=== PATIENT | female | born 1945 | race Caucasian/White ===

== ENCOUNTER 2019-09-02 10:10 | Outpatient (CLI) | payer MEDICARE, SELFPAY ==
--- NOTE | ~2019-09-02 | XR_ITS ---
XR shoulder LT min 2V DATE: 09/02/2019 10:33 INDICATION: Straining injury 3 months ago. Left shoulder pain. TECHNIQUE: 4 views COMPARISON: None FINDINGS: No fracture or dislocation, periosteal reaction or bone destruction. Normal alignment at th e acromioclavicular and glenohumeral joints. There is mild osteoarthritic spurring at the left glenoh umeral joint. Degenerative spurring of the thoracic spine. IMPRESSION: Mild left glenohumeral osteoarthritis Reviewed, dictated and finalized at location A.
== END 2019-09-02 10:11 | disposition home or self-care (01) ==
LOC: ANHIMG 10:13
PROVIDERS: PCP Emergency Medicine; Visit Provider Emergency Medicine
DX: M19.012 Primary osteoarthritis, left shoulder (principal)
CPT/HCPCS: 73030

== ENCOUNTER 2019-12-29 14:47 | Outpatient (CLI) | payer MEDICARE, SELFPAY ==
--- NOTE | ~2019-12-29 | DEXA_ITS ---
Bone Density Report Name: Nataliia Arteaga Age: 74 Sex: Female Ethnicity: White Date of : 1945 Indication: postmenopausal; height loss; hysterectomy; Referring Provider: HAILE VELOZ Study: Bone densitometry was performed. Exam Date: December 29, 2019 Accession number: [id number] Bone Density: Region BMD T-score Z-score Classification AP Spine (L3, L4) 1.202 0.9 3.4 Normal Femoral Neck (Left) 0.793 -0.5 1.5 Normal Total Hip (Left) 0.919 -0.2 1.5 Normal Total Hip Bilateral Avg 0.948 0.1 1.8 Normal Femoral Neck (Right) 0.797 -0.5 1.5 Normal Total Hip (Right) 0.976 0.3 2.0 Normal World Health Organization criteria for BMD impression classify patients as: Normal (T-score at or above -1.0), Osteopenia (T-score between -1.0 and -2.5), or Osteoporosis (T-score at or below -2.5). 10-year Fracture Risk: FRAX not reported because: All T-scores for Spine Total, Hip Total, Femoral Neck at or above -1.0 Previous Exams: Region Exam Age BMD T-score BMD Change BMD Change Date g/cm2 vs Baseline vs Previous AP Spine(L3, L4) 12/29/2019 74 1.202 0.9 -0.005(-0.4%)# -0.027(-2.2%)* 04/09/2017 71 1.229 1.2 0.022(1.8%)# -0.035(-2.7%)* 02/02/2015 69 1.264 1.5 0.057(4.7%)# 0.057(4.7%)# 05/28/2011 66 1.207 1.0 Total Hip(Left) 12/29/2019 74 0.919 -0.2 -0.034(-3.6%)# -0.031(-3.3%)* 04/09/2017 71 0.950 0.1 -0.003(-0.3%)# -0.010(-1.0%) 02/02/2015 69 0.960 0.1 0.007(0.7%)# 0.007(0.7%)# 05/28/2011 66 0.953 0.1 Total Hip(Right) 12/29/2019 74 0.976 0.3 -0.057(-5.5%)# -0.050(-4.8%)* 04/09/2017 71 1.025 0.7 -0.007(-0.7%)# 0.008(0.8%) 02/02/2015 69 1.017 0.6 -0.016(-1.5%)# -0.016(-1.5%)# 05/28/2011 66 1.033 0.7 *Denotes significance at 95% confidence level, LSC for AP Spine = 0.022 g/cm2, LSC for Total Hip = 0.027 g/cm2 Clinical Information Provided by Patient: Has used the following medications: Vitamin D, Calcium Has the following medical conditions: Hysterectomy Patient maximum height was 65 Menopause Age: 43 Drinks caffeinated beverages Onset of menses at age 11 Number of children 3 Impression: The patient has normal bone mass. The BMD for the AP Spine(L3, L4) decreased, changing by -2.2% since the last DXA exam. The BMD for the Total Hip(Left) decreased, changing by -3.3% since the last DXA exam. The BMD for the Total Hip(Right) decreased, changing by -4.8% since the last
--- NOTE | ~2019-12-29 | MM_ITS ---
EXAMINATION: MM screening [place] BI w flores HISTORY: Screening mammogram TECHNIQUE: Craniocaudal and mediolateral oblique 3-D tomosynthesis images were obtained and synthetic 2-D images were generated. CAD analysis was submitted and interpreted. COMPARISON: 11/19/2018, 07/23/2017, 04/29/2016 bilateral digital screening mammogram examinations BREAST PARENCHYMAL COMPOSITION: The breasts are almost entirely fatty. FINDINGS: There is no evidence of suspicious mass, calcification, or architectural distortion to sugg est malignancy in either breast. There has been no suspicious interval change. IMPRESSION: 1. No mammographic evidence of malignancy. 2. Recommend routine screening mammography in one year. BI-RADS Category 1: Negative Reviewed, dictated and finalized at location A.
== END 2019-12-29 14:48 | disposition home or self-care (01) ==
LOC: ANHIMG 14:48
PROVIDERS: PCP Emergency Medicine; Visit Provider Emergency Medicine
DX: Z12.31 Encounter for screening mammogram for malignant neoplasm of breast (principal); Z78.0 Asymptomatic menopausal state
CPT/HCPCS: 77063; 77067; 77080

== ENCOUNTER 2020-05-25 13:06 | Outpatient (CLI) | payer MEDICARE, SELFPAY ==
--- NOTE | ~2020-05-25 | CT_ITS ---
EXAMINATION: CT lung screening DATE: 05/25/2020 13:50 INDICATION: Personal history of tobacco dependence, prior smoker with 67.5 pack year history TECHNIQUE: Computed tomography (CT) of the chest was performed without intravenous contrast. The dose -length product (DLP) was 76.97 mGy-cm. 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 COMPARISON: 07/21/2018 FINDINGS: There are stable bilateral pulmonary nodules, the largest of which measures 4 mm in the rig ht lung apex. No new pulmonary nodule is identified. There is mild dependent atelectasis. No pleural effusion or pneumothorax is identified. Again noted is multinodular goiter which extends into the sup erior mediastinum on the left. Calcified atherosclerosis is noted. No pathologically enlarged thoraci c lymph nodes are identified. The heart size is normal. There is severe thoracic spondylosis. IMPRESSION: 1. Lung-RADS category 2: Benign appearance or behavior. Continue annual screening with noncontrast lo w-dose chest CT in 12 months. Reviewed, dictated and finalized at location A. 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 Lung-RADS category 2: Benign appearance or behavior. Continue annual screeni ng with noncontrast low-dose chest CT in 12 months.
--- NOTE | ~2020-05-25 | US_ITS ---
EXAMINATION: US thyroid DATE: 05/25/2020 13:48 INDICATION: Nontoxic goiter TECHNIQUE: Multiple ultrasound images of the thyroid were obtained. COMPARISON: None. FINDINGS: The right thyroid lobe measures 5.1 x 3.4 x 1.8 cm. The left thyroid lobe measures 7.7 x 3.8 x 2.8 c m. Wider than tall slightly hypoechoic solid right thyroid nodule with smooth margins and without ec hogenic foci. (TI-RADS 4, moderately suspicious , FNA if >=1.5 cm, annual followup is >1 cm) which me asures 3.5 cm in maximal dimensions. There are 3 similar-appearing TI-RADS 4 nodules in the left thyr oid lobe which measure 4.0 cm, 3.6 cm and 2.1 cm in maximal diameters. IMPRESSION: 1. Multiple TI RADS 4 thyroid nodules meeting criteria for ultrasound guided biopsy. Would recommend biopsy of the 2 largest nodules which would include the 4 cm left thyroid nodule and either the 3.6 a nd meter left 3.5 cm right thyroid nodule depending on which measures larger on real-time imaging at the time of biopsy. Reviewed, dictated and finalized at location A. 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 Multiple TI RADS 4 thyroid nodules meeting criteria for ultrasound guided bi opsy. Would recommend biopsy of the 2 largest nodules which would include the 4 cm left thyroid nodule and either the 3.6 and meter left 3.5 cm right thyroid nodule depending on which measures larger on real-time imaging at the time of b iopsy.
== END 2020-05-25 13:07 | disposition home or self-care (01) ==
PROVIDERS: PCP Emergency Medicine; Visit Provider Emergency Medicine
DX: Z12.2 Encounter for screening for malignant neoplasm of respiratory organs (principal); Z87.891 Personal history of nicotine dependence; E04.2 Nontoxic multinodular goiter
CPT/HCPCS: 71271; 76536

== ENCOUNTER 2020-07-13 13:10 | Outpatient (CLI) | payer MEDICARE, SELFPAY ==
--- NOTE | ~2020-07-13 | US_ITS ---
EXAMINATION: US FNA w image guidance, US FNA additional DATE: 07/13/2020 15:52 (accession [id number]), 07/13/2020 15:53 (accession [id number]) INDICATION: Nontoxic goiter TECHNIQUE: A time-out was performed to verify the patient's name, date of , and procedure to be performed . The procedure and its benefits and risks were discussed with the patient. Risks specifically discus sed included bleeding and infection. The patient understood the risks and agreed to proceed. Attentio n was first turned to the left thyroid nodule. The left neck was prepped and draped in the usual ster ile manner. 3 mL 1% lidocaine was used for local anesthesia. 6 passes were made with a 25G needle i nto the lesion. Appropriate needle location was documented with continuous sonographic guidance. Att ention was then turned to the right thyroid nodule. The right neck was prepped and draped in usual st erile manner. An additional 3 mm 1% lidocaine was used for local anesthesia. 6 passes were made with a 25G needle into the lesion. Appropriate needle location was documented with continuous sonographic guidance. Sterile bandages were applied. There were no immediate complications. FINDINGS: Grayscale ultrasound images demonstrate biopsy needles advanced first into the largest >3.7 cm solid left thyroid nodule. Subsequently biopsy needles are seen advanced into the next largest 3.2 cm right thyroid nodule. IMPRESSION: 1. Successful ultrasound-guided fine needle aspiration of the 2 largest thyroid nodules which measur e >3.7 cm on the left and 3.2 cm on the right. Reviewed, dictated and finalized at location A. IMPRESSION: 1. Successful ultrasound-guided fine needle aspiration of the 2 largest thyroi d nodules which measure >3.7 cm on the left and 3.2 cm on the right.
== END 2020-07-13 13:11 | disposition home or self-care (01) ==
PROVIDERS: PCP Emergency Medicine; Visit Provider Emergency Medicine
DX: E04.2 Nontoxic multinodular goiter (principal)
CPT/HCPCS: 10005; 10006; 88173; 88305

== ENCOUNTER → 2020-10-23 03:27 | Outpatient (CLI) | payer MEDICARE, SELFPAY ==
[2020-10-23 16:50] LABS: SARS-CoV-2 RNA PCR Negative
== END ==
PROVIDERS: PCP Emergency Medicine; Visit Provider Internal Medicine Gastroenterology
DX: Z01.812 Encounter for preprocedural laboratory examination (principal); Z20.822 Contact with and (suspected) exposure to COVID-19
CPT/HCPCS: C9803; U0003; U0005

== ENCOUNTER 2020-10-26 01:30 | Day surgery (SDC) | payer MEDICARE, SELFPAY ==
[2020-10-10 13:01] VITALS: BMI 30.2
--- NOTE | 2020-10-25 13:27 | WPDANESEPPF ---
Anes - Initial Pre Proc Eval Procedure: Operation Date: 10/26/20 11:00 Proposed Procedures p Screening Colonoscopy - Giorgio Martinez MD Date/Time: 10/25/20 13:27 Surgeon: Giorgio Martinez MD Pre Op Diagnosis: neoplasm screening Patient Data Age: 75 Gender: F Height: 1.57 m Weight: 75 kg Allergies Allergy/AdvReac Type Severity Reaction Status Date / Time No Known Allergies Allergy Verified 10/26/20 09:48 Home Medications Medication Instructions Recorded Confirmed Type cholecalciferol (vitamin D3) 25 25 mcg PO DAILY 04/08/19 10/26/20 History mcg (1,000 unit) capsule omega 0-lld-clp-fish oil 1,000 mg 2 cap PO DAILY 04/08/19 10/26/20 History (120 mg-180 mg) capsule gabapentin 100 mg PO TID 10/10/20 10/26/20 History simvastatin 20 mg PO DAILY 10/10/20 10/26/20 History turmeric 400 mg PO DAILY 10/10/20 10/26/20 History Patient hx anesthesia problems: none Family hx anesthesia problems: none PMFSH Past Medical History Medical History (Updated 10/26/20 @ 10:12 by Radames Cabrera DO) Back pain at L4-L5 level Multinodular goiter Nicotine dependence, unspecified, uncomplicated Numbness and tingling of both legs Other specified soft tissue disorders Paresthesia of skin Personal history of nicotine dependence Primary generalized (osteo)arthritis PVD (peripheral vascular disease) Vitamin D deficiency disease Family History Family History Father Family history of kidney disease Acute myocardial infarction Mother Family history of diabetes mellitus in first degree relative Sibling Acute myocardial infarction Social History Social History Smoking packs per day: 1.5 Smoking cigarettes per day: 30.0 Years smoked: 45 Smoking pack-years: 67.50 Smoking status: Former smoker Tobacco type: cigarettes Second hand tobacco smoke exposure: Yes Alcohol intake: former Living arrangements: alone Spiritual care concerns: No Anes - Eval Final PreProcedure Day of Procedure 10/25/20 13:27 Patient weight: obese Heart: regular rate and rhythm Lungs: clear to auscultation and normal air movement Airway: Mallampati scale class II Neurological: alert and oriented Last oral intake: >/= 8 hours ASA classification: III Emergent: no Anesthetic plan: proceed Anesthesia type and monitoring: general GIVS and standard monitoring Informed Consent: The patient's anesthetic plan and its attendant risks and benefits were discussed with the patient/family/POA. Questions were solicited and answers provided to the satisfaction of the patient/family/POA.
[2020-10-26 09:50] VITALS: BP 137/86; PULSE 97; RESP 18; TEMP 35.5; O2SAT 100
[2020-10-26] MEDS: LACTATED RINGERS 1,000 ML 150 ML IV CONT (09:52)
--- NOTE | 2020-10-26 10:06 | WPDGICN ---
Assessment and Plan Assessment and plan (1) Encounter for screening colonoscopy: Code(s): Z12.11 - Encounter for screening for malignant neoplasm of colon Status: Acute Assessment and Plan: Patient presents for screening colonoscopy. She appears to be at average risk for colon polyps. GI Consult Note Consult date/time: 10/26/20 10:06 HPI: Nataliia Arteaga is a 75 year old female Presents for neoplasia screening. Patient reports that her bowel habits are normal. She denies abdominal pain. She has had no bleeding. Her last colonoscopy was 13 years ago. Family history is noncontributory. Review of Systems Review of Systems: All systems reviewed & are unremarkable except as noted in HPI and below PMFSH Past Medical History Medical History Back pain at L4-L5 level Chest pain at rest Multinodular goiter Nicotine dependence, unspecified, uncomplicated Numbness and tingling of both legs Other specified soft tissue disorders Paresthesia of skin Personal history of nicotine dependence Primary generalized (osteo)arthritis PVD (peripheral vascular disease) Vitamin D deficiency disease Family History Family History Father Family history of kidney disease Acute myocardial infarction Mother Family history of diabetes mellitus in first degree relative Sibling Acute myocardial infarction Social History Social History Smoking packs per day: 1.5 Smoking cigarettes per day: 30.0 Years smoked: 45 Smoking pack-years: 67.50 Smoking status: Former smoker Tobacco type: cigarettes Second hand tobacco smoke exposure: Yes Alcohol intake: former Living arrangements: alone Spiritual care concerns: No Meds Home Medications and Allergies Home Medications Medication Instructions Recorded Confirmed Type cholecalciferol (vitamin D3) 25 25 mcg PO DAILY 04/08/19 10/26/20 History mcg (1,000 unit) capsule omega 0-cnq-ihf-fish oil 1,000 mg 2 cap PO DAILY 04/08/19 10/26/20 History (120 mg-180 mg) capsule gabapentin 100 mg PO TID 10/10/20 10/26/20 History simvastatin 20 mg PO DAILY 10/10/20 10/26/20 History turmeric 400 mg PO DAILY 10/10/20 10/26/20 History Allergies Allergy/AdvReac Type Severity Reaction Status Date / Time No Known Allergies Allergy Verified 10/26/20 09:48 Vital Signs Vital Signs - 24 hr 10/26/20 09:50 Temperature 95.9 F L Pulse Rate 97 Respiratory Rate 18 Blood Pressure 137/86 Pulse Oximetry 100 Exam Narrative: Exam Narrative: Physical exam reveals patient to be alert. Vital signs stable. HEENT exam is unremarkable. Patient is anicteric. Lungs are clear to auscultation and percussion. Heart is without murmur or extra sounds. Abdominal exam bowel sounds are present soft nontender with no organomegaly. Digital external rectal exam is normal.
[2020-10-26 11:15] VITALS: BP 87/58; PULSE 74; RESP 28; O2SAT 96
[2020-10-26 11:21] VITALS: BP 87/58; PULSE 74; RESP 28; O2SAT 96
[2020-10-26 11:25] VITALS: BP 101/59; PULSE 78; RESP 19; O2SAT 100
[2020-10-26 11:35] VITALS: BP 147/90; PULSE 72; RESP 20; O2SAT 100
[2020-10-26 12:07] LABS: Hematocrit 46.2 % (37.0-47.0); Hemoglobin 15.4 g/dL (12.0-15.0); Mean Corpuscular HGB Conc 33.3 g/dl (32-36); Mean Platelet Volume 10.8 fl (7.4-10.4); Platelet Count Result 181 k/mm3 (150-375); Red Blood Count 4.97 M/mm3 (4.2-5.4); Red Cell Distribution Width 12.6 % (11.5-14.5); White Blood Count 4.7 K/mm3 (4.5-10.0)
[2020-10-26 12:21] LABS: Alanine Aminotransferase 21 U/L (4-35); Albumin Level 4.9 g/dL (3.5-5.1); Alkaline Phosphatase 98 U/L (38-126); Anion Gap 10 mmol/L (8-16); Aspartate Amino Transferase 29 U/L (14-36); Bilirubin,Total 0.7 mg/dL (0.2-1.3); Blood Urea Nitrogen 13 mg/dL (7-17); Calcium 10.1 mg/dL (8.4-10.2); Carbon Dioxide 25 mmol/L (22-30); Chloride 103 mmol/L (98-107); Estimated CRCL calculation 37 ml/min; Estimated Glomerular Filt Rate 49; Glucose 121 mg/dL (65-105); Potassium 4.5 mmol/L (3.4-5.0); Sodium 138 mmol/L (137-145)
[2020-10-26 12:46] LABS: Carcinoembryonic Antigen 9.3 ng/mL (0.0-3.0)
== END 2020-10-26 12:09 | disposition home or self-care (01) ==
PROVIDERS: PCP Emergency Medicine; Visit Provider Internal Medicine Gastroenterology
PROC: 0DJD8ZZ Inspection of Lower Intestinal Tract, Via Natural or Artificial Opening Endoscopic (ICD-10-PCS; CPT 45378; principal; 2020-10-26 11:00)
DX: Z12.11 Encounter for screening for malignant neoplasm of colon (principal); C18.3 Malignant neoplasm of hepatic flexure; D12.2 Benign neoplasm of ascending colon; E04.2 Nontoxic multinodular goiter; E55.9 Vitamin D deficiency, unspecified; I73.9 Peripheral vascular disease, unspecified; M15.0 Primary generalized (osteo)arthritis; R20.2 Paresthesia of skin; Z87.891 Personal history of nicotine dependence
CPT/HCPCS: 45385; 45380; 45381; 36415; 80053; 82378; 85027; 88305; C9803; J2704; J7120; U0003; U0005

== ENCOUNTER 2020-11-03 10:03 | Outpatient (CLI) | payer MEDICARE, SELFPAY ==
--- NOTE | 2020-11-03 11:14 | ECG_ITS ---
Measurements Intervals [place] Rate: 73 P: 14 MD: 165 QRS: 27 QRSD: 69 T: 45 QT: 371 QTc: 410 Interpretive Statements SINUS RHYTHM LOW QRS VOLTAGE IN PRECORDIAL LEADS BASELINE ARTIFACT- I, II, III, AVR, AVL, AVF BORDERLINE ECG Electronically Signed On 11-03-2020 12:25:52 CDT by Abiodun Miller D.O.
== END 2020-11-03 10:04 | disposition home or self-care (01) ==
LOC: ANHSURGERY 10:03
PROVIDERS: PCP Emergency Medicine; Visit Provider Surgery
DX: Z01.818 Encounter for other preprocedural examination (principal); C18.9 Malignant neoplasm of colon, unspecified; E78.5 Hyperlipidemia, unspecified
CPT/HCPCS: 36415; 86850; 86900; 86901; 93005

== ENCOUNTER → 2020-11-04 00:21 | Outpatient (CLI) | payer MEDICARE, SELFPAY ==
[2020-11-04 16:43] LABS: SARS-CoV-2 RNA PCR Negative
== END ==
PROVIDERS: PCP Emergency Medicine; Visit Provider Surgery
DX: Z01.812 Encounter for preprocedural laboratory examination (principal); Z20.822 Contact with and (suspected) exposure to COVID-19
CPT/HCPCS: C9803; U0003; U0005

== ENCOUNTER 2020-11-08 16:29 | Inpatient (IN) | payer MEDICARE, SELFPAY ==
[2020-11-03 10:27] VITALS: BP 137/72; PULSE 79; RESP 18; TEMP 36.2; O2SAT 98; BMI 30.2
[2020-11-08] VITALS (11 sets, daily range): BP systolic 97–145; BP diastolic 49–70; PULSE 66–90; RESP 10–20; TEMP 35.6–36.6; O2SAT 94–100
[2020-11-08] MEDS: ACETAMINOPHEN 500 MG TABLET 1000 MG PO (10:31)
[2020-11-08] MEDS: LACTATED RINGERS 1,000 ML 30 ML IV CONT ×3 (11:00→14:49)
[2020-11-08] MEDS: KETOROLAC 15 MG/ML VIAL (*BKC) IV PUSH (11:11)
--- NOTE | 2020-11-08 11:38 | WPDANESEPPF ---
Anes - Initial Pre Proc Eval Procedure: Operation Date: 11/08/20 12:00 Proposed Procedures p Hand Assisted Laparoscopic Right Colectomy - Yvrose Shelley MD Date/Time: 11/08/20 11:38 Surgeon: Yvrose Shelley MD Pre Op Diagnosis: right colon cancer Patient Data Age: 75 Gender: F Height: 1.57 m Weight: 72.5 kg Last Vital Signs Temp 36.6 C 11/08/20 10:20 Pulse 86 11/08/20 10:20 Resp 20 11/08/20 10:20 BP 145/68 H 11/08/20 10:20 Pulse Ox 100 11/08/20 10:20 Allergies Allergy/AdvReac Type Severity Reaction Status Date / Time No Known Allergies Allergy Verified 11/08/20 10:23 Home Medications Medication Instructions Recorded Confirmed Type cholecalciferol (vitamin D3) 25 25 mcg PO DAILY 04/08/19 11/08/20 History mcg (1,000 unit) capsule omega 6-woh-dmr-fish oil 1,000 mg 2 cap PO DAILY 04/08/19 11/08/20 History (120 mg-180 mg) capsule gabapentin 100 mg PO TID 10/10/20 11/08/20 History simvastatin 20 mg PO DAILY 10/10/20 11/08/20 History turmeric 400 mg PO DAILY 10/10/20 11/08/20 History erythromycin 500 mg tablet 1 g PO .COMPLEX #6 tablet 11/01/20 11/08/20 Rx neomycin 500 mg tablet 1 g PO .COMPLEX #6 tablet 11/01/20 11/08/20 Rx Patient hx anesthesia problems: none Family hx anesthesia problems: none PMFSH Past Medical History Medical History Back pain at L4-L5 level Multinodular goiter Nicotine dependence, unspecified, uncomplicated Numbness and tingling of both legs Other specified soft tissue disorders Paresthesia of skin Personal history of nicotine dependence Primary generalized (osteo)arthritis PVD (peripheral vascular disease) Vitamin D deficiency disease Surgical History Surgical History H/O cataract extraction H/O section x 3 History of hysterectomy Family History Family History Father Family history of kidney disease Acute myocardial infarction Mother Family history of diabetes mellitus in first degree relative Sibling Acute myocardial infarction Social History Social History Smoking packs per day: 1 Smoking cigarettes per day: 20.0 Years smoked: 50 Smoking pack-years: 50.00 Smoking status: Former smoker Tobacco type: cigarettes Second hand tobacco smoke exposure: Yes Smoking end date: 07/13/18 Alcohol intake: former 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 Substance use: never Living arrangements: with family Additional living arrangements comments: Spiritual care concerns: No Anes - Eval Final PreProcedure Day of Procedure 11/08/20 11:38 Patient weight: overweight Heart: regular rate and rhythm Lungs: clear to auscultation Airway: Mallampati scale class II and special considerations poor dentition Neurological: alert and oriented Last oral intake: >/= 8 hours Emergent: no Anesthetic plan: proceed Anesthesia type and monitoring: general ETT and standard monitoring Informed Consent: The patient's anesthetic plan and its attendant risks and benefits were discussed with the patient/family/POA. Questions were solicited and answers provided to the satisfaction of the patient/family/POA.
--- NOTE | 2020-11-08 11:48 | WPDHPUPDATE1 ---
History and Physical Update Update Date/Time: 11/08/20 11:48 History and Physical has been reviewed, including an updated exam of the patient. There are NO changes in the patient's condition. Risks, benefits, and alternatives have been discussed and questions answered. Patient agrees to proceed with procedure.
[2020-11-08] MEDS: ceFAZolin 2 GM/D5W 50 ML 2 GM/50 ML BAG IVPB (12:02)
[2020-11-08] MEDS: BUPIVACAINE/EPINEPHRINE 0.5% 10 ML VIAL 30 ML INFILTRATE (12:02)
[2020-11-08] MEDS: metroNIDAZOLE 500 MG/ISO 100ML 500 MG/100 ML BAG 100 MG IVPB (12:13)
--- NOTE | 2020-11-08 14:53 | W.PM.PROC2 ---
Procedure Note - Detailed Date of Procedure 11/08/20 Pre-op Diagnosis right colon cancer proximal transverse colon, lysis of adhesion of approximately 30 minutes Post-op Diagnosis same Procedure Performed hand assisted laparoscopic right hemicolectomy c mobilization of hepatic flexure, lysis of adhesion of approximately 30 minutes Surgeon Yvrose Shelley MD Anesthesia general Indications 75 y/o F presenting c biopsy confirmed colon cancer near hepatic flexure Findings palpable mass and tatoo in proximal transverse colon Description of Procedure The patient was taken to the operating room and placed in the supine position. After adequate induction of general anesthesia, the patient was prepped and draped normal sterile fashion. A time-out was then done to verify the patient's identity as well as the procedure being performed. I began by making a hand port incision around the umbilicus. This was carried down into the peritoneal cavity and there was noted adhesions to the lower anterior abdominal wall. These adhesions were taken down under visualization with the bovie cautery. Once the abdominal wall was cleared, the hand port was then placed. I then insufflated the abdomen through the hand port. I then placed the camera through the hand port and under direct visualization, I placed 2 5 mm ports in right lower and right mid abdomen. Once this was done, I examined the right abdomen. It was noted that the patient had adhesions of the cecum and distal ileum to the pelvis. These adhesions were taken down both bluntly and with the ligasure under direct visualization. This adhesiolysis took approximately 30 minutes. Once the right colon was mobilized, I began my medial approach. I did this by 1st recognizing and transecting the right colic vessels. This was taken down near the base of the mesentery with the LigaSure. Once this was done, I carried this plane towards the hepatic flexure until I encountered the duodenum which was mobilized posteriorly. I then began taking down the lateral attachments of the terminal ileum and right colon including taking down the white line of [place] and the hepatic flexure. Once this was done my medial and lateral dissection planes met. I was able to easily manipulate the right colon. The tattoed region and palpable mass was noted past the hepatic flexure in the proximal transverse colon. Further dissection was done to free up the transverse colon, including taking down the omentum. At this point, I extracorporealyzed the right colon and terminal ileum. I then transected the terminal ileum approximately 10 cm proximal to the ileo colic junction with a 75 OBDULIO stapler. I then localized the tumor in the proximal transverse colon. I measured 10 cm distal to this and transected the transverse colon at this point. Of note, I was able to palpate the middle colic vessels and the transection was done proximal to the vessels. I then performed a [id number] functional end-to-end anastomosis between the ileum and proximal transverse colon with a 55 OBDULIO stapler followed by a TL 60 stapler. The anastomosis was noted to be tension-free and widely patent. I closed the messenteric defect with a 2.0 silk suture. I then copiously irrigated the abdomen, no other pathology was noted. I then closed the hand port incision with a 0 PDS suture at the fascial level. The skin was closed with 4 O Monocryl subcuticular sutures including the 5 mm ports sites. Dermabond was then placed on all wounds. The patient tolerated the procedure well. She was extubated in the operating room postoperatively and will be transferred to the recovery room in stable condition. Estimated Blood Loss 25 Drains No Packing No Pathology yes Complications No immediate complications Condition stable Disposition PACU
[2020-11-08] MEDS: ONDANSETRON INJ 4 MG/2 ML VIAL IV PUSH (15:10)
[2020-11-08] MEDS: fentaNYL CITRATE INJ (*CRX) 100 MCG/2 ML VIAL 25 MCG IV PUSH ×6 (15:10→16:20)
--- NOTE | 2020-11-08 17:59 | ADMGEN ---
This patient, Nataliia Arteaga, was admitted to Medical Room 241-01. Patient/family oriented to hospital policies and general routines including ID bracelet, bed and alarms, visiting hours, pain management, procedures, bathroom and other care routines, personal items, smoking policy, room service/diet, and visiting hours. Information on how to activate the Rapid Response Team has been discussed. Patient/Family are encouraged to report perceived risks to care and to ask questions if they do not understand what they are told or what they should do.
[2020-11-08] MEDS: LACTATED RINGERS 1,000 ML 100 ML IV CONT (18:09)
[2020-11-08] MEDS: GABAPENTIN 100 MG CAPSULE PO (18:09)
[2020-11-08] MEDS: HYDROcodone/acetaminophen (*CRX) 5-325 MG TABLET 1 TAB PO (20:37)
[2020-11-09 02:14] VITALS: BP 111/49; PULSE 87; RESP 18; TEMP 36.3; O2SAT 97
[2020-11-09] MEDS: LACTATED RINGERS 1,000 ML 100 ML IV CONT (04:09)
[2020-11-09 05:45] LABS: Basophils Percent Auto 0.2 % (0.2-1.2); Hematocrit 37.1 % (37.0-47.0); Hemoglobin 12.2 g/dL (12.0-15.0); Immature Granulocyte Absolute 0.03 K/mm3 (0.00-0.031); Immature Granulocyte Percent A 0.3 % (0-0.5); Lymphocytes Absolute Auto 0.45 K/mm3 (0.9-3.2); Lymphocytes Percent Auto 4.2 % (18.3-44.2); Mean Corpuscular HGB Conc 32.9 g/dl (32-36); Mean Corpuscular Hemoglobin 30.7 pg (26-34); Mean Corpuscular Volume 93.2 fl (80-100); Mean Platelet Volume 11.5 fl (7.4-10.4); Monocytes Absolute Auto 0.6 K/mm3 (0.1-0.6); Monocytes Percent Auto 5.6 % (2.6-8.5); Neutrophils Absolute Auto 9.7 K/mm3 (1.3-6.7); Neutrophils Percent Auto 89.7 % (45.5-73.1); Platelet Count Result 159 k/mm3 (150-375); Red Blood Count 3.98 M/mm3 (4.2-5.4); Red Cell Distribution Width 12.4 % (11.5-14.5); White Blood Count 10.8 K/mm3 (4.5-10.0)
[2020-11-09 05:53] LABS: Anion Gap 8 mmol/L (8-16); Blood Urea Nitrogen 12 mg/dL (7-17); Calcium 8.5 mg/dL (8.4-10.2); Carbon Dioxide 22 mmol/L (22-30); Chloride 103 mmol/L (98-107); Estimated CRCL calculation 57 ml/min; Estimated Glomerular Filt Rate > 60; Glucose 146 mg/dL (65-110); Sodium 133 mmol/L (137-145)
[2020-11-09 06:14] VITALS: BP 108/47; PULSE 82; RESP 18; TEMP 36.7; O2SAT 97
[2020-11-09] MEDS: PANTOPRAZOLE 40 MG TABLET PO (08:44)
[2020-11-09] MEDS: GABAPENTIN 100 MG CAPSULE PO ×3 (08:44→16:56)
[2020-11-09] MEDS: CHOLECALCIFEROL 1,000 UNITS TABLET 1000 UNITS PO (08:44)
[2020-11-09] MEDS: SIMVASTATIN 20 MG TABLET PO (08:44)
[2020-11-09] MEDS: ENOXAPARIN 40 MG/0.4 ML SYRINGE SUB-Q (08:44)
[2020-11-09] MEDS: OMEGA 3 POLYUNSAT FATTY ACIDS 1 GM CAP 2 GM PO (08:44)
[2020-11-09 10:14] VITALS: BP 96/50; PULSE 78; RESP 16; TEMP 37; O2SAT 96
--- NOTE | 2020-11-09 11:25 | PM.PNGS ---
Progress Note: A&P Assessment and Plan (1) Colon cancer: Qualifiers: Colon location: hepatic flexure Qualified Code(s): C18.3 - Malignant neoplasm of hepatic flexure Code(s): C18.9 - Malignant neoplasm of colon, unspecified Status: Acute Assessment and Plan: POD#1 and doing well. Awaiting return of bowel function. Pain well-controlled. Advance to full liquids. Stop IVF. D/C Choi catheter. Encouraged increasing activity, walking the halls, IS use. Pathology pending. Additional Plan I have discussed the plan of care with Dr. Shelley. Subjective Subjective Date/Time Seen: 11/09/20 11:25 Post Op day: 1 Patient reports: tolerating liquids well, no flatus, no bowel movement and afebrile Interval history: Patient seen this morning and doing well. She has been up in the chair most of the morning. Pain is well controlled. No nausea, vomiting, or bloating. No flatus. No other complaints. Review of Systems Review of Systems: All systems reviewed & are unremarkable except as noted in HPI and below Constitutional: Constitutional: Reports as per HPI, Reports no additional constitutional complaints, Denies chills and Denies fever(s) Cardiovascular: Cardiovascular: Reports no additional cardiovascular complaints, Denies chest pain and Denies leg edema Respiratory: Respiratory: Reports no additional respiratory complaints, Denies cough and Denies dyspnea Gastrointestinal: Gastrointestinal: Reports as per HPI and Reports no additional gastrointestinal complaints Neurologic: Reports system reviewed and no additional complaints, except as documented, Denies Abnormal speech present and Denies focal weakness Exam Const: General: comfortable, no acute distress, alert and awake Orientation/consciousness: patient oriented x3 Resp: Effort & Inspection: normal respiratory effort Auscultation: clear to auscultation bilaterally Cardio: Rate: regular rate Rhythm: regular rhythm GI: Inspection: non-distended and incision (Abdominal incisions clean and dry, glue intact.) GI Palp: Yes Soft to palpation and Yes Tenderness to palpation present (GI) (incisional) Auscultation: normal bowel sounds Urinary Catheter: Urinary Catheter: patent and draining and urine clear Skin: General skin exam: normal color Neuro: General: moves all extremities and no focal motor deficits Extrem: General: no clubbing, cyanosis or edema and no calf tenderness Psych: Mental Status: mental status grossly normal Insight: Good insight present (Psych) Judgement: Good judgement present (Psych) Objective Data Vital Signs Vital Signs: Vital Signs - 24 hr 11/08/20 14:39 11/08/20 14:55 11/08/20 15:10 Temperature 96.7 F L Pulse Rate 70 71 71 Respiratory Rate 11 L 10 L 10 L Blood Pressure 124/64 124/67 97/51 L Pulse Oximetry 100 100 94 11/08/20 15:25 11/08/20 15:42 11/08/20 16:45 Temperature 96.0 F L Pulse Rate 73 68 74 Respiratory Rate 10 L 10 L 14 Blood Pressure 99/49 L 114/59 L 115/60 Pulse Oximetry 98 100 100 11/08/20 17:00 11/08/20 17:14 11/08/20 18:14 Temperature 96.0 F L 96.2 F L Pulse Rate 66 90 Respiratory Rate 14 14 Blood Pressure 122/65 134/70 Pulse Oximetry 100 100 100 11/08/20 20:20 11/09/20 02:14 11/09/20 06:14 Temperature 97.7 F 97.3 F L 98.1 F Pulse Rate 82 87 82 Respiratory Rate 16 18 18 Blood Pressure 140/64 111/49 L 108/47 L Pulse Oximetry 98 97 97 11/09/20 10:14 Temperature 98.6 F Pulse Rate 78 Respiratory Rate 16 Blood Pressure 96/50 L Pulse Oximetry 96 Intake/Output Intake/Output: Intake & Output 11/06/20 11/07/20 11/08/20 11/09/20 23:59 23:59 23:59 23:59 Intake Total 1150 1450 Output Total 200 600 Balance 950 850 Meds/Results Medications: Active Medications Generic Name Dose Route Start Last Admin Trade Name Freq PRN Reason Stop Dose Admin Hydrocodone Bitart/Acetaminophen 1 tab 11/08/20 16:29 11/08/20 20:37 Hydrocodone/Acetaminophen (*Crx
--- NOTE | 2020-11-09 12:17 | WPDANESPN ---
Anes - Prog Note Post-Op Date/Time: 11/09/20 12:17 Cardiovascular status: normal Respiratory status: normal Airway patency: baseline Mental status: baseline Post-Op hydration status: normal Vital Signs: Last Vital Signs Temp 37.0 C 11/09/20 10:14 Pulse 78 11/09/20 10:14 Resp 16 11/09/20 10:14 BP 96/50 L 11/09/20 10:14 Pulse Ox 96 11/09/20 10:14 Pain Score (VAS): 3 I/O: Intake & Output 11/08/20 11/09/20 11/09/20 23:59 07:59 15:59 Intake Total 350 1450 Output Total 100 600 300 Balance 250 850 -300 Laboratory Tests 11/09/20 05:05 11/09/20 05:05 11/09/20 11/09/20 05:05 05:05 WBC 10.8 H RBC 3.98 L Hgb 12.2 D Hct 37.1 MCV 93.2 MCH 30.7 MCHC 32.9 RDW 12.4 Plt Count 159 MPV 11.5 H Immature Gran % (Auto) 0.3 Neut % (Auto) 89.7 H Lymph % (Auto) 4.2 L [place] % (Auto) 5.6 Eos % (Auto) 0.0 Baso % (Auto) 0.2 Lymph # (Auto) 0.45 L [place] # (Auto) 0.6 Eos # (Auto) 0.0 Baso # (Auto) 0.0 Abs Immat Gran (auto) 0.03 Absolute Neuts (auto) 9.7 H Absolute Nucleated RBC 0.0 Nucleated RBC % 0.0 Sodium 133 L Potassium 4.0 Chloride 103 Carbon Dioxide 22 Anion Gap 8 BUN 12 Creatinine 0.70 Estim Creat Clear Calc 57 Estimated GFR > 60 Glucose 146 H Calcium 8.5 Post-procedural complaints: none Patient Feedback: Patient satisfied with anesthetic care.
[2020-11-09 14:14] VITALS: BP 110/50; PULSE 79; RESP 18; TEMP 36.8; O2SAT 97
[2020-11-09] MEDS: HYDROcodone/acetaminophen (*CRX) 5-325 MG TABLET 1 TAB PO (17:00)
[2020-11-09] MEDS: ALVIMOPAN 12 MG CAPSULE PO (21:06)
[2020-11-09 22:00] VITALS: BP 133/51; PULSE 80; RESP 18; TEMP 36.7; O2SAT 96
[2020-11-10 02:00] VITALS: BP 137/69; PULSE 101; RESP 18; TEMP 36.1; O2SAT 96
[2020-11-10] MEDS: ONDANSETRON INJ 4 MG/2 ML VIAL IV PUSH ×5 (04:12→21:19)
[2020-11-10 05:46] LABS: Hematocrit 39.5 % (37.0-47.0); Hemoglobin 13.1 g/dL (12.0-15.0); Mean Corpuscular HGB Conc 33.2 g/dl (32-36); Mean Corpuscular Hemoglobin 30.8 pg (26-34); Mean Corpuscular Volume 92.9 fl (80-100); Mean Platelet Volume 11.2 fl (7.4-10.4); Platelet Count Result 161 k/mm3 (150-375); Red Blood Count 4.25 M/mm3 (4.2-5.4); Red Cell Distribution Width 12.6 % (11.5-14.5); White Blood Count 10.4 K/mm3 (4.5-10.0)
[2020-11-10 06:00] VITALS: BP 123/59; PULSE 79; RESP 18; TEMP 36.3; O2SAT 96
[2020-11-10 06:01] LABS: Anion Gap 6 mmol/L (8-16); Blood Urea Nitrogen 14 mg/dL (7-17); Calcium 8.9 mg/dL (8.4-10.2); Carbon Dioxide 28 mmol/L (22-30); Chloride 99 mmol/L (98-107); Estimated CRCL calculation 57 ml/min; Estimated Glomerular Filt Rate > 60; Glucose 131 mg/dL (65-110); Potassium 3.9 mmol/L (3.4-5.0); Sodium 133 mmol/L (137-145)
[2020-11-10] MEDS: GABAPENTIN 100 MG CAPSULE PO ×3 (08:25→17:35)
[2020-11-10] MEDS: CHOLECALCIFEROL 1,000 UNITS TABLET 1000 UNITS PO (08:25)
[2020-11-10] MEDS: PANTOPRAZOLE 40 MG TABLET PO (08:25)
[2020-11-10] MEDS: ENOXAPARIN 40 MG/0.4 ML SYRINGE SUB-Q (08:25)
[2020-11-10] MEDS: ALVIMOPAN 12 MG CAPSULE PO ×2 (08:26→20:14)
[2020-11-10] MEDS: SIMVASTATIN 20 MG TABLET PO (08:26)
--- NOTE | 2020-11-10 08:51 | PM.PNGS ---
Progress Note: A&P Assessment and Plan (1) Colon cancer: Qualifiers: Colon location: hepatic flexure Qualified Code(s): C18.3 - Malignant neoplasm of hepatic flexure Code(s): C18.9 - Malignant neoplasm of colon, unspecified Status: Acute Assessment and Plan: doing well, soft diet, OOB/IS, await path, hopefully home this Subjective Subjective Date/Time Seen: 11/10/20 08:51 feels ok, some nausea, belching overnight, multiple loose stools Review of Systems Review of Systems: All systems reviewed & are unremarkable except as noted in HPI and below Exam Const: General: cooperative and no acute distress Nutritional Appearance: average body habitus Orientation/consciousness: patient oriented x3 Resp: Effort & Inspection: normal respiratory effort Auscultation: clear to auscultation bilaterally Cardio: Rate: regular rate Rhythm: regular rhythm GI: Inspection: normal to inspection, distended and incision GI Palp: Yes Soft to palpation and Yes Tenderness to palpation present (GI) Other: soft, sl dist, [place] TTP, incisions C/D/I Objective Data Vital Signs Vital Signs: Vital Signs - 24 hr 11/09/20 10:14 11/09/20 14:14 11/09/20 22:00 Temperature 37.0 C 36.8 C 36.7 C Pulse Rate 78 79 80 Respiratory Rate 16 18 18 Blood Pressure 96/50 L 110/50 L 133/51 L Pulse Oximetry 96 97 96 11/10/20 02:00 11/10/20 06:00 Temperature 36.1 C L 36.3 C L Pulse Rate 101 H 79 Respiratory Rate 18 18 Blood Pressure 137/69 123/59 L Pulse Oximetry 96 96 Intake/Output Intake/Output: Intake & Output 11/07/20 11/08/20 11/09/20 11/10/20 23:59 23:59 23:59 23:59 Intake Total 1150 4640 650 Output Total 200 1100 300 Balance 950 3540 350 Meds/Results Medications: Active Medications Generic Name Dose Route Start Last Admin Trade Name Freq PRN Reason Stop Dose Admin Acetaminophen 650 mg 11/09/20 11:26 Acetaminophen 325 Mg Tablet PO Q4H PRN Pain Rated 1-3 Hydrocodone Bitart/Acetaminophen 1 tab 11/08/20 16:29 11/09/20 17:00 Hydrocodone/Acetaminophen (*Crx) 5-325 Mg Tablet PO 1 tab Q4H PRN Administration Pain Rated 4-6 Alvimopan 12 mg 11/09/20 21:00 11/10/20 08:26 Alvimopan 12 Mg Capsule PO 11/16/20 21:01 12 mg Q12HR BENNIE Administration Enoxaparin Sodium 40 mg 11/09/20 09:00 11/10/20 08:25 Enoxaparin 40 Mg/0.4 Ml Syringe SUB-Q 40 mg DAILY [facility] Administration Fish Oil 2 gm 11/09/20 09:00 11/10/20 08:26 [place] 3 Polyunsat Fatty Acids 1 Gm Cap PO Not Given DAILY [facility] Gabapentin 100 mg 11/08/20 17:00 11/10/20 08:25 Gabapentin 100 Mg Capsule PO 100 mg TID [facility] Administration Morphine Sulfate 2 mg 11/08/20 16:29 Morphine Sulfate (*Crx) 2 Mg/Ml Inj IV PUSH Q2H PRN Pain Rated 4-6 Naloxone HCl 0.1 mg 11/08/20 16:29 Naloxone Hcl 0.4 Mg/Ml Vial IV PUSH Q2M PRN Opiate Reversal Non-Formulary Medication 400 mg 11/09/20 09:00 Turmeric PO 12/09/20 09:01 DAILY [facility] Ondansetron HCl 4 mg 11/08/20 16:29 11/10/20 08:25 Ondansetron Inj 4 Mg/2 Ml Vial IV PUSH 4 mg Q4H PRN Administration Nausea And Vomiting Pantoprazole Sodium 40 mg 11/09/20 09:00 11/10/20 08:25 Pantoprazole 40 Mg Tablet PO 40 mg QAM BENNIE Administration Simvastatin 20 mg 11/09/20 09:00 11/10/20 08:26 Simvastatin 20 Mg Tablet PO 20 mg DAILY [facility] Administration Vitamin D 1,000 units 11/09/20 09:00 11/10/20 08:25 Cholecalciferol 1,000 Units Tablet PO 1,000 units DAILY [facility] Administration Labs Labs: Laboratory Results - last 24 hr 11/10/20 11/10/20 05:07 05:07 WBC 10.4 H RBC 4.25 Hgb 13.1 Hct 39.5 MCV 92.9 MCH 30.8 MCHC 33.2 RDW 12.6 Plt Count 161 MPV 11.2 H Sodium 133 L Potassium 3.9 Chloride 99 Carbon Dioxide 28 Anion Gap 6 L BUN 14 Creatinine 0.70 Estim Creat Clear Calc 57 Estimated GFR > 60 Glucose 131 H Calciu
[2020-11-10 14:00] VITALS: BP 112/66; PULSE 92; RESP 18; TEMP 36.2; O2SAT 98
[2020-11-10] MEDS: HYDROcodone/acetaminophen (*CRX) 5-325 MG TABLET 1 TAB PO (21:18)
[2020-11-10] MEDS: MELATONIN 3 MG TABLET PO (21:18)
[2020-11-10 21:37] VITALS: BP 136/66; PULSE 88; RESP 16; TEMP 37; O2SAT 97
[2020-11-11 05:12] LABS: Alanine Aminotransferase 17 U/L (4-35); Albumin Level 2.8 g/dL (3.5-5.1); Alkaline Phosphatase 55 U/L (38-126); Anion Gap 7 mmol/L (8-16); Aspartate Amino Transferase 26 U/L (14-36); Bilirubin,Total 0.9 mg/dL (0.2-1.3); Blood Urea Nitrogen 18 mg/dL (7-17); Calcium 8.6 mg/dL (8.4-10.2); Carbon Dioxide 24 mmol/L (22-30); Chloride 101 mmol/L (98-107); Estimated CRCL calculation 50 ml/min; Estimated Glomerular Filt Rate > 60; Glucose 114 mg/dL (65-110); Potassium 3.9 mmol/L (3.4-5.0); Sodium 132 mmol/L (137-145)
[2020-11-11 05:38] VITALS: BP 100/52; PULSE 77; RESP 16; TEMP 36.2; O2SAT 95
[2020-11-11 08:09] VITALS: BP 123/62; PULSE 90
[2020-11-11] MEDS: ENOXAPARIN 40 MG/0.4 ML SYRINGE SUB-Q (08:11)
[2020-11-11] MEDS: GABAPENTIN 100 MG CAPSULE PO ×3 (08:11→16:45)
[2020-11-11] MEDS: PANTOPRAZOLE 40 MG TABLET PO (08:11)
[2020-11-11] MEDS: OMEGA 3 POLYUNSAT FATTY ACIDS 1 GM CAP 2 GM PO (08:11)
[2020-11-11] MEDS: SIMVASTATIN 20 MG TABLET PO (08:11)
[2020-11-11] MEDS: CHOLECALCIFEROL 1,000 UNITS TABLET 1000 UNITS PO (08:11)
[2020-11-11] MEDS: ALVIMOPAN 12 MG CAPSULE PO (08:12)
--- NOTE | 2020-11-11 13:31 | PM.DS ---
DS: Admitting Diagnosis Admitting Diagnosis Recently discovered adenocarcinoma of the right colon DS: Discharge Diagnosis Discharge Diagnosis (1) Colon cancer: Onset Date: ~10/2020 Qualifiers: Colon location: hepatic flexure Qualified Code(s): C18.3 - Malignant neoplasm of hepatic flexure Code(s): C18.9 - Malignant neoplasm of colon, unspecified Status: Acute Assessment and Plan: Discussed pathology with the patient. She has a stage III capital T3, N0, MX adenocarcinoma of the transverse colon. It was completely resected with 11 lymph nodes negative. She will follow up for consultation with Dr. Dwayne turner who she saw preoperatively. She will see Dr. chilel on November 22 for a follow-up visit postoperatively. Patient was relieved that tumor was completely resected and that she had negative lymph nodes. (2) Postoperative nausea: Onset Date: ~10/2020 Code(s): R11.0 - Nausea; Z98.890 - Other specified postprocedural states Status: Acute Assessment and Plan: sent prescription to patient's pharmacy for under the tongue Zofran. she will use if necessary at home. (3) BMI 29.0-29.9,adult: Onset Date: Unknown Code(s): Z68.29 - Body mass index [BMI] 29.0-29.9, adult Status: Acute Assessment and Plan: Encouraged patient to follow low-fat low-fiber diet for 1 week and then advance as tolerated. (4) Hyperlipidemia: Onset Date: Unknown Qualifiers: Hyperlipidemia type: unspecified Qualified Code(s): E78.5 - Hyperlipidemia, unspecified Code(s): E78.5 - Hyperlipidemia, unspecified Status: Acute Assessment and Plan: okay for patient to resume any home meds regarding this. (5) Vitamin D deficiency disease: Onset Date: Unknown Code(s): E55.9 - Vitamin D deficiency, unspecified Status: Acute Assessment and Plan: Okay for patient resume any home meds regarding this. DS: Summary Hospital Course Reason for hospitalization: recently discovered colon cancer hepatic flexure area Hospital Course: patient had a fairly uneventful hospital course. She had some postoperative nausea and vomiting. She did receive Entereg to try to help her recover her bowel function quickly after surgery. She is being discharged on postop day 3 with instructions to use under the tongue Zofran for any nausea and to gradually increase her diet to a low-fiber low-fat diet. After 1 week she can resume her regular diet and I encouraged her to take once a day Citrucel which are already takes order to try to help reduce the loose stools that she has and give her a healthy soft bulky stool. Pathology did return the day of discharge and I discussed this with her. She will consult further with Dr. Lomax as an outpatient in several weeks to talk about any adjuvant treatment. She will return to see Dr. Shelley in the office in about 10 days. Time spent discussing smoking cessation with patient: more than 10 minutes Status at Discharge Functional status at discharge: independent ambulation Overall status at discharge: patient is not back to baseline ( Still a little weak but on her way back to normal) Time Spent with Patient Time attestation: Total time spent providing and/or coordinating discharge services: Time spent: Less than 30 minutes Exam Const: General: cooperative, no acute distress, alert and awake Orientation/consciousness: patient oriented x3 HENMT: Mouth: Yes moist mucous membranes Neck: Neck: normal visual inspection Chest: Chest palpation & inspection: normal inspection of the chest Resp: Effort & Inspection: normal respiratory effort Auscultation: clear to auscultation bilaterally Cardio: Jugular venous distension: no JVD Rate: regular rate Rhythm: regular rhythm GI: Inspection: incision ( Clean and dry with surgical glue in place.) Auscultation: normal bowel sounds Rectal Exam: defer
[2020-11-11 14:00] VITALS: BP 120/61; PULSE 83; RESP 16; TEMP 36.3; O2SAT 100
== END 2020-11-11 17:45 | disposition home or self-care (01) | DRG 331 ==
LOC: ANH2MED 16:43
PROVIDERS: Nurse Practitioner Family; Admitting Provider Surgery; PCP Emergency Medicine; Visit Provider Surgery
PROC: 0DTF4ZZ Resection of Right Large Intestine, Percutaneous Endoscopic Approach (ICD-10-PCS; CPT 44204; principal; 2020-11-08 12:00)
DX: C18.4 Malignant neoplasm of transverse colon (principal); E78.5 Hyperlipidemia, unspecified; E55.9 Vitamin D deficiency, unspecified; I73.9 Peripheral vascular disease, unspecified; Z87.891 Personal history of nicotine dependence
CPT/HCPCS: 36415; 80048; 80053; 85025; 85027; 86850; 86900; 86901; 88309; 93005; A9270; C9803; J0690; J1170; J1650; J1885; J2250; J2405; J3010; J7030; J7120; U0003; U0005

== ENCOUNTER 2020-12-21 13:12 | Emergency (ER) | payer MEDICARE, SELFPAY ==
[2020-12-21 13:27] VITALS: BP 135/79; PULSE 85; RESP 14; TEMP 36.3; O2SAT 99
--- NOTE | 2020-12-21 14:25 | ED.FEMALEGU ---
HPI - Female Genitourinary General Chief complaint: Urogenital-Female Stated complaint: Possible UTI Time Seen by Provider: 12/21/20 14:25 Source: patient Mode of arrival: ambulatory Limitations: no limitations History of Present Illness HPI Narrative: Nataliia Arteaga is a 75 yo female with a PMH of colon cancer, high cholesterol, came to [facility] with 6-7 days of symptoms of urinary tract infection. She tried Azo with no success. Patient states that she has some pain on the end of stream Related Data Home Medications Medication Instructions Recorded Confirmed cholecalciferol (vitamin D3) 25 25 mcg PO DAILY 04/08/19 12/21/20 mcg (1,000 unit) capsule omega 1-egh-lnr-fish oil 1,000 mg 2 cap PO DAILY 04/08/19 12/21/20 (120 mg-180 mg) capsule gabapentin 100 mg PO TID 10/10/20 12/21/20 simvastatin 20 mg PO DAILY 10/10/20 12/21/20 turmeric 400 mg PO DAILY 10/10/20 12/21/20 Allergies Allergy/AdvReac Type Severity Reaction Status Date / Time No Known Allergies Allergy Verified 12/21/20 13:36 Review of Systems Review of Systems: CONSTITUTIONAL: Denies fever, chills, sweats. EYES: Denies visual changes, redness, discharge. ENT: Denies rhinorrhea, congestion, sore throat, otalgia. CARDIOVASCULAR: Denies chest pain, palpitations, edema. RESPIRATORY: Denies dyspnea, wheezing, cough GASTROINTESTINAL: Denies abdominal pain, nausea, vomiting, diarrhea. GENITOURINARY: Has dysuria, hematuria, abnormal discharge SKIN: Denies rash or itching. NEUROLOGIC: Denies numbness, or focal weakness. PSYCHIATRIC: Denies anxiety or depression. [facility] Past Medical History Medical History Back pain at L4-L5 level Multinodular goiter Nicotine dependence, unspecified, uncomplicated Numbness and tingling of both legs Other specified soft tissue disorders Paresthesia of skin Personal history of nicotine dependence Primary generalized (osteo)arthritis PVD (peripheral vascular disease) Vitamin D deficiency disease Surgical History Surgical History H/O cataract extraction H/O section x 3 H/O hemicolectomy hand assisted laparoscopic right hemicolectomy c mobilization of hepatic flexure, lysis of adhesion of approximately 30 minutes History of hysterectomy Family History Family History Father Family history of kidney disease Acute myocardial infarction Mother Family history of diabetes mellitus in first degree relative Sibling Acute myocardial infarction Social History Social History Smoking packs per day: 1 Smoking cigarettes per day: 20.0 Years smoked: 50 Smoking pack-years: 50.00 Smoking status: Former smoker Tobacco type: cigarettes Second hand tobacco smoke exposure: Yes Smoking end date: 08/11/18 Alcohol intake: former 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 Substance use: never Additional living arrangements comments: Spiritual care concerns: No Comments At time of signature, I agree with nursing past medical, surgical, social and family history. There is no relevant family history pertinent to the presenting complaint. Exam Narrative: GENERAL: This is a well-nourished, well-developed patient, in mild distress. HEAD: normocephalic, atraumatic. EYES: Sclera clear/white. Vision is grossly intact. EARS: External ears normal, Hearing grossly intact. NOSE: External nose normal without nasal discharge, nares without redness, no rhinorrhea. THROAT: Mucous membranes moist, NECK: Neck supple, CARDIOVASCULAR: Regular rate and rhythm without murmurs, gallops, or rubs. RESPIRATORY: Clear to auscultation. Breath sounds equal bilaterally. No wheezes, rales, or rhonchi. GASTROINTESTINAL: Abdomen soft, non-tende
== END 2020-12-21 14:37 | disposition home or self-care (01) ==
PROVIDERS: Emergency Provider Nurse Practitioner; PCP Emergency Medicine
DX: N30.00 Acute cystitis without hematuria (principal); Z87.891 Personal history of nicotine dependence; M19.90 Unspecified osteoarthritis, unspecified site; E55.9 Vitamin D deficiency, unspecified; Z85.038 Personal history of other malignant neoplasm of large intestine; E78.00 Pure hypercholesterolemia, unspecified; E04.2 Nontoxic multinodular goiter
CPT/HCPCS: 81003; 87077; 87086; 87186; 99213; G0463

== ENCOUNTER 2020-12-25 08:35 | Outpatient (CLI) | payer MEDICARE, SELFPAY ==
--- NOTE | ~2020-12-25 | CT_ITS ---
EXAMINATION: CT chest abdomen pelvis w con DATE: 12/25/2020 09:24 INDICATION: Malignant neoplasm of the colon TECHNIQUE: Transaxial computed tomographic images of the chest, abdomen, and pelvis were obtained aft er the administration of 100 cc of Omnipaque 350 intravenous contrast. The dose-length product (DLP) was 537.26 mGy-cm. Automated exposure control and iterative reconstruction technique were employed. COMPARISON: 05/25/2020, 02/14/2009 FINDINGS: CHEST CT: Stable pulmonary nodules measure up to 4 mm in the right lung apex. No new pulmonary nodules are iden tified. There is mild atelectasis. The lungs are free of focal airspace opacities. There is no pleura l effusion or pneumothorax. No pathologically enlarged thoracic lymph nodes are identified. The heart size is normal. Multiple thyroid nodules are noted which have been described on prior ultrasound and have undergone fine-needle aspiration. Calcified coronary artery atherosclerosis is noted. There is mild thoracic spondylosis. ABDOMEN/PELVIS CT: The liver, spleen, pancreas, gallbladder, and adrenal glands are normal. The kidneys are unremarkable . There is calcified atherosclerosis of the aorta and many of the other arteries. No pathologically e nlarged abdominal or pelvic lymph nodes are identified. There is no free intraperitoneal gas or evide nce of bowel obstruction. There are surgical changes of the ascending and proximal transverse colecto my. Heterogeneous attenuation of the intrapelvic fat anteriorly likely reflects fat necrosis. There i s severe lumbar spondylosis. IMPRESSION: 1. Changes of subtotal colectomy without evidence of metastatic disease. Reviewed, dictated and finalized at location A.
[2020-12-25 09:08] LABS: Estimated Glomerular Filt Rate > 60
== END 2020-12-25 08:36 | disposition home or self-care (01) ==
PROVIDERS: PCP Emergency Medicine; Visit Provider Internal Medicine Hematology & Oncology
DX: C18.2 Malignant neoplasm of ascending colon (principal); Z90.49 Acquired absence of other specified parts of digestive tract
CPT/HCPCS: 71260; 74177; Q9967

== ENCOUNTER 2021-01-09 08:45 | Outpatient (CLI) | payer MEDICARE, SELFPAY ==
--- NOTE | ~2021-01-09 | MM_ITS ---
EXAMINATION: MM screening [place] BI w flores HISTORY: Screening TECHNIQUE: Craniocaudal and mediolateral oblique 3-D tomosynthesis images were obtained and synthetic 2-D images were generated. CAD analysis was submitted and interpreted. COMPARISON: Comparison to multiple prior studies sequentially, with oldest reviewed study dated 08/26. BREAST PARENCHYMAL COMPOSITION: There are scattered areas of fibroglandular density. FINDINGS: There is no evidence of suspicious mass, calcification, or architectural distortion to sugg est malignancy in either breast. There has been no suspicious interval change. IMPRESSION: 1. No mammographic evidence of malignancy. 2. Recommend routine screening mammography in one year. BI-RADS Category 1: Negative Reviewed, dictated and finalized at location A.
== END 2021-01-09 08:46 | disposition home or self-care (01) ==
PROVIDERS: PCP Emergency Medicine; Visit Provider Emergency Medicine
DX: Z12.31 Encounter for screening mammogram for malignant neoplasm of breast (principal)
CPT/HCPCS: 77063; 77067

== ENCOUNTER 2021-06-28 09:35 | Outpatient (CLI) | payer MEDICARE, SELFPAY ==
[2021-06-28 11:28] LABS: Toxigenic C. Diff POSITIVE (NEGATIVE)
== END 2021-06-28 09:36 | disposition home or self-care (01) ==
PROVIDERS: PCP Emergency Medicine; Visit Provider Internal Medicine Gastroenterology
DX: K52.9 Noninfective gastroenteritis and colitis, unspecified (principal)
CPT/HCPCS: 87045; 87427; 87493; 89055

== ENCOUNTER 2021-08-02 09:50 | Outpatient (CLI) | payer MEDICARE, SELFPAY ==
--- NOTE | ~2021-08-02 | CT_ITS ---
EXAMINATION:CT lung screening DATE: 08/02/2021 10:15 INDICATION: Personal history of nicotine dependence. Smoker who quit 3 years ago with 45 pack year hi story. TECHNIQUE: Computed tomography (CT) of the chest was performed without intravenous contrast. Automate d exposure control and iterative reconstruction technique were employed. The dose-length product (DLP ) was 75.87 mGy-cm. COMPARISON: Chest CT 12/25/2020, 05/25/2020, 05/02/2016 FINDINGS: There is stable mild scarring at the lung apices. There is stable mild scarring in paraspin al right lower lobe. There is a stable 4 mm nodule with eccentric calcification in right upper lobe. There is minimal atelectasis in the lungs. No pleural effusion. There is a chronic multinodular goite r extending into the superior mediastinum without change. The heart size is normal. There are coronar y artery calcifications. No pericardial effusion. There is moderate thoracic spondylosis. IMPRESSION: 1. Lung-RADS category 2: Benign appearance or behavior. Continue annual screening with noncontrast lo w-dose chest CT in 12 months. Reviewed, dictated and finalized at location B. IMPRESSION: 1. Lung-RADS category 2: Benign appearance or behavior. Continue annual screeni ng with noncontrast low-dose chest CT in 12 months.
== END 2021-08-02 09:51 | disposition home or self-care (01) ==
PROVIDERS: PCP Emergency Medicine; Visit Provider Emergency Medicine
DX: Z12.2 Encounter for screening for malignant neoplasm of respiratory organs (principal); Z87.891 Personal history of nicotine dependence
CPT/HCPCS: 71271

== ENCOUNTER 2021-09-25 09:00 | Outpatient (CLI) | payer MEDICARE, SELFPAY ==
--- NOTE | ~2021-09-25 | CT_ITS ---
EXAMINATION: CT abdomen pelvis wo con DATE: 09/25/2021 09:44 INDICATION: Colon malignancy restaging TECHNIQUE: Computed tomography (CT) of the abdomen and pelvis was performed without intravenous contr ast. Automated exposure control and iterative reconstruction technique were employed. Exam dose: 284 .00 mGy-cm total exam DLP. COMPARISON: 12/25/2020 CT chest abdomen pelvis FINDINGS: Minimal focal infiltrate, atelectasis or scarring in the medial right lung base, right lowe r lobe. The lung bases are otherwise clear. Normal heart size. No pericardial or pleural effusion. Small sliding hiatal hernia. The liver, gallbladder, bile duct, spleen, pancreas, pancreatic duct and adrenal glands are unremarka ble. No renal mass lesion or urinary tract calculus or hydroureteronephrosis. The urinary bladder is unremarkable. Status post hysterectomy. There is atherosclerotic calcification of the abdominal aorta and iliac arteries and prominent calcif ication at the origins of the renal arteries. No abdominal aortic aneurysm. No intraperitoneal or ret roperitoneal or pelvic mass lesion or adenopathy or ascites. Status post right colectomy. Minimal colonic diverticulosis. No evidence of diverticulitis. No bowel obstruction or intraperitoneal free air. There is dextroscoliosis and prominent multilevel degenerative disc disease of the lumbar spine, rela tively sparing L5-S1.. No suspicious osteolytic or osteoblastic lesions are noted. IMPRESSION: Status post right colectomy for colon cancer; no evidence of recurrence or metastatic dis ease Minimal diverticulosis of the colon Small sliding hiatal hernia Status post hysterectomy Reviewed, dictated and finalized at [facility]. Reviewed, dictated and finalized at location A. IMPRESSION: Status post right colectomy for colon cancer; no evidence of recurr ence or metastatic disease Minimal diverticulosis of the colon Small sliding hiatal hernia Status post hysterectomy
== END 2021-09-25 09:01 | disposition home or self-care (01) ==
PROVIDERS: PCP Emergency Medicine; Visit Provider Internal Medicine Hematology & Oncology
DX: C18.9 Malignant neoplasm of colon, unspecified (principal); K57.30 Diverticulosis of large intestine without perforation or abscess without bleeding; K44.9 Diaphragmatic hernia without obstruction or gangrene; Z90.710 Acquired absence of both cervix and uterus
CPT/HCPCS: 74176

== ENCOUNTER 2021-11-20 00:08 | Day surgery (SDC) | payer MEDICARE, SELFPAY ==
[2021-11-02 08:29] VITALS: BMI 27.8
[2021-11-20 10:14] VITALS: BP 145/73; PULSE 86; RESP 17; TEMP 36.3; O2SAT 100
[2021-11-20] MEDS: LACTATED RINGERS 1,000 ML 150 ML IV CONT (10:27)
--- NOTE | 2021-11-20 10:37 | PM.IMHP ---
H&P: HPI History of Present Illness Date/Time: 11/20/21 10:37 Chief Complaint: History of colon cancer. Narrative: This is a 76-year-old white female patient presents for screening colonoscopy. 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 This was resected over the last year. None of the lymph nodes were positive. She presents today for surveillance colonoscopy. Patient reports that her bowel movements have returned to normal with the assistance of fiber supplementation. Family history is noncontributory. Review of Systems Review of Systems: Review of systems noncontributory. [facility] Past Medical History Medical History Back pain at L4-L5 level Hyperlipidemia Multinodular goiter Nicotine dependence, unspecified, uncomplicated Numbness and tingling of both legs Other specified soft tissue disorders Paresthesia of skin Personal history of nicotine dependence Post-menopause Primary generalized (osteo)arthritis PVD (peripheral vascular disease) Vitamin D deficiency Vitamin D deficiency disease Surgical History Surgical History H/O cataract extraction H/O section x 3 H/O hemicolectomy hand assisted laparoscopic right hemicolectomy c mobilization of hepatic flexure, lysis of adhesion of approximately 30 minutes History of hysterectomy Family History Family History Father Family history of kidney disease Acute myocardial infarction Mother Family history of diabetes mellitus in first degree relative Sibling Acute myocardial infarction Social History Social History Smoking packs per day: 1 Smoking cigarettes per day: 20.0 Years smoked: 50 Smoking pack-years: 50.00 Smoking status: Former smoker Tobacco type: cigarettes Second hand tobacco smoke exposure: Yes Smoking end date: 08/11/18 Alcohol intake: former 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 Substance use: never Substance use type: does not use Living arrangements: with family Additional living arrangements comments: Spiritual care concerns: No Meds Home Medications and Allergies Home Medications Medication Instructions Recorded Confirmed Type cholecalciferol (vitamin D3) 25 25 mcg PO DAILY 04/08/19 11/02/21 History mcg (1,000 unit) capsule omega 3-zwk-xjo-fish oil 1,000 mg 2 cap PO DAILY 04/08/19 11/02/21 History (120 mg-180 mg) capsule calcium polycarbophil 625 mg 1,250 mg PO BID #120 tabs 06/14/21 11/02/21 Rx tablet (FiberCon) simvastatin 20 mg tablet See Rx Instructions .Route 07/02/21 11/02/21 Rx .COMPLEX #90 tabs gabapentin 100 mg capsule See Rx Instructions .Route 08/10/21 11/02/21 Rx .COMPLEX #270 caps peg 3350-electrolytes 236 240 ml PO Q10M #4,000 mL 10/31/21 11/02/21 Rx gram-22.74 gram-6.74 gram-5.86 gram solution (Golytely) Allergies Allergy/AdvReac Type Severity Reaction Status Date / Time No Known Allergies Allergy Verified 11/20/21 10:13 Vital Signs Vital Signs - 24 hr 11/20/21 10:14 Temperature 97.3 F L Pulse Rate 86 Respiratory Rate 17 Blood Pressure 145/73 H Pulse Oximetry 100 Oxygen Delivery Room Air Exam Narrative: Physical exam reveals patient be alert. Vital signs stable. HEENT exam is unremarkable. Patient is anicteric. Lungs are clear to auscultation and percussion. Heart is without murmur or extra sounds. Abdomen bowel sounds are present soft nontender with no organomegaly. Digital external rectal exam is normal. Assessment and Plan Assessment and plan (1) Cancer of right colon: Code(s): C18.2 - Malignant neoplasm of ascending colon Status: Acute Assessment and Plan: Patient found to have a malignant cancer
--- NOTE | 2021-11-20 11:07 | WPDANESEPPF ---
Anes - Initial Pre Proc Eval Procedure: Operation Date: 11/20/21 11:30 Proposed Procedures p Screening Colonoscopy - Giorgio Martinez MD Date/Time: 11/20/21 11:07 Surgeon: Giorgio Martinez MD Pre Op Diagnosis: hx of colon ca Patient Data Age: 76 Gender: F Height: 1.59 m Weight: 61.7 kg Last Vital Signs Temp 97.3 F L 11/20/21 10:14 Pulse 86 11/20/21 10:14 Resp 17 11/20/21 10:14 BP 145/73 H 11/20/21 10:14 Pulse Ox 100 11/20/21 10:14 O2 Del Method Room Air 11/20/21 10:14 Allergies Allergy/AdvReac Type Severity Reaction Status Date / Time No Known Allergies Allergy Verified 11/20/21 10:13 Home Medications Medication Instructions Recorded Confirmed Type cholecalciferol (vitamin D3) 25 25 mcg PO DAILY 04/08/19 11/02/21 History mcg (1,000 unit) capsule omega 4-eda-abi-fish oil 1,000 mg 2 cap PO DAILY 04/08/19 11/02/21 History (120 mg-180 mg) capsule calcium polycarbophil 625 mg 1,250 mg PO BID #120 tabs 06/14/21 11/02/21 Rx tablet (FiberCon) simvastatin 20 mg tablet See Rx Instructions .Route 07/02/21 11/02/21 Rx .COMPLEX #90 tabs gabapentin 100 mg capsule See Rx Instructions .Route 08/10/21 11/02/21 Rx .COMPLEX #270 caps peg 3350-electrolytes 236 240 ml PO Q10M #4,000 mL 10/31/21 11/02/21 Rx gram-22.74 gram-6.74 gram-5.86 gram solution (Golytely) Patient hx anesthesia problems: none Family hx anesthesia problems: none Results Review: All pre-operative results and documents have been reviewed as part of the pre-operative evaluation. [facility] Past Medical History Medical History Back pain at L4-L5 level Hyperlipidemia Multinodular goiter Nicotine dependence, unspecified, uncomplicated Numbness and tingling of both legs Other specified soft tissue disorders Paresthesia of skin Personal history of nicotine dependence Post-menopause Primary generalized (osteo)arthritis PVD (peripheral vascular disease) Vitamin D deficiency Vitamin D deficiency disease Surgical History Surgical History H/O cataract extraction H/O section x 3 H/O hemicolectomy hand assisted laparoscopic right hemicolectomy c mobilization of hepatic flexure, lysis of adhesion of approximately 30 minutes History of hysterectomy Family History Family History Father Family history of kidney disease Acute myocardial infarction Mother Family history of diabetes mellitus in first degree relative Sibling Acute myocardial infarction Social History Social History Smoking packs per day: 1 Smoking cigarettes per day: 20.0 Years smoked: 50 Smoking pack-years: 50.00 Smoking status: Former smoker Tobacco type: cigarettes Second hand tobacco smoke exposure: Yes Smoking end date: 08/11/18 Alcohol intake: former 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 Substance use: never Substance use type: does not use Living arrangements: with family Additional living arrangements comments: Spiritual care concerns: No Anes - Eval Final PreProcedure Day of Procedure 11/20/21 11:07 Patient weight: overweight Heart: regular rate and rhythm Lungs: clear to auscultation Airway: Mallampati scale class II Neurological: alert and oriented Last oral intake: >/= 8 hours ASA classification: III Emergent: no Anesthetic plan: proceed Anesthesia type and monitoring: general GIVS and standard monitoring Results Review: All pre-operative results and documents have been reviewed as part of the pre-operative evaluation. Informed Consent: The patient's anesthetic plan and its attendant risks and benefits were discussed with the patient/family/POA. Questions were solicited and answers provided to the satis
[2021-11-20] MEDS: SIMETHICONE ORAL SUSPENSION 20 MG/0.3 ML 30 ML BOTTLE 0.6 ML IRRIGATION (11:21)
[2021-11-20 11:31] VITALS: BP 87/40; PULSE 81; RESP 28; O2SAT 100
[2021-11-20 11:41] VITALS: BP 90/64; PULSE 82; RESP 13; O2SAT 100
[2021-11-20 11:51] VITALS: BP 139/59; PULSE 83; RESP 15; O2SAT 100
== END 2021-11-20 12:13 | disposition home or self-care (01) ==
PROVIDERS: PCP Emergency Medicine; Visit Provider Internal Medicine Gastroenterology
PROC: 0DJD8ZZ Inspection of Lower Intestinal Tract, Via Natural or Artificial Opening Endoscopic (ICD-10-PCS; CPT 45378; principal; 2021-11-20 11:30)
DX: Z09 Encounter for follow-up examination after completed treatment for conditions other than malignant neoplasm (principal); Z85.038 Personal history of other malignant neoplasm of large intestine; K64.8 Other hemorrhoids; Z98.0 Intestinal bypass and anastomosis status; I73.9 Peripheral vascular disease, unspecified; E55.9 Vitamin D deficiency, unspecified; M19.90 Unspecified osteoarthritis, unspecified site; E78.5 Hyperlipidemia, unspecified; R20.2 Paresthesia of skin; E04.2 Nontoxic multinodular goiter; Z87.891 Personal history of nicotine dependence
CPT/HCPCS: 45378; J2704; J7120

== ENCOUNTER 2022-04-17 08:03 | Outpatient (CLI) | payer MEDICARE, SELFPAY ==
--- NOTE | ~2022-04-17 | CT_ITS ---
CT of the Abdomen and Pelvis: Indication: Colon cancer Technique: 2.5 mm axial scans were obtained through the abdomen and pelvis following intravenous adm inistration of 100 cc of Omnipaque 350. Dose reduction technique was used on this scan by utilizing a utomated exposure control and iterative reconstruction technique. The dose-length product (DLP) was 3 96.50 mGy-cm. COMPARISON: 09/25/2021 Findings: Scans through the lung bases are unremarkable. The liver, spleen, pancreas, gallbladder, adrenals and kidneys are within normal limits. No evidence of aortic aneurysm. No lymphadenopathy. No bowel obstruction or bowel wall thickening. Patient is status post right hemicolectomy. There is n o evidence to suggest acute appendicitis. Images through the pelvis were performed. Urinary bladder unremarkable. Patient is post hysterectomy. No pelvic mass evident. Impression: No evidence for active malignancy or metastatic disease. Status post right hemicolectomy. Reviewed, dictated and finalized at [facility]. RATHLETE Impression: No evidence for active malignancy or metastatic disease. Status post right hemicolectomy.
[2022-04-17 08:30] LABS: Estimated Glomerular Filt Rate > 60
== END 2022-04-17 08:04 | disposition home or self-care (01) ==
PROVIDERS: PCP Emergency Medicine; Visit Provider Internal Medicine Hematology & Oncology
DX: C18.9 Malignant neoplasm of colon, unspecified (principal)
CPT/HCPCS: 74177; Q9967

== ENCOUNTER 2022-04-24 09:10 | Outpatient (CLI) | payer MEDICARE, SELFPAY ==
[2022-04-24 09:22] LABS: Basophils Percent Auto 0.9 % (0.2-1.2); Eosinophils Absolute Auto 0.1 K/mm3 (0-0.3); Eosinophils Percent Auto 2.6 % (0-4.4); Hematocrit 43.6 % (37.0-47.0); Hemoglobin 14.6 g/dL (12.0-15.0); Immature Granulocyte Absolute 0.01 K/mm3 (0.00-0.031); Immature Granulocyte Percent A 0.2 % (0-0.5); Lymphocytes Absolute Auto 1.45 K/mm3 (0.9-3.2); Lymphocytes Percent Auto 31.1 % (18.3-44.2); Mean Corpuscular HGB Conc 33.5 g/dl (32-36); Mean Corpuscular Hemoglobin 31.9 pg (26-34); Mean Corpuscular Volume 95.2 fl (80-100); Mean Platelet Volume 10.9 fl (7.4-10.4); Monocytes Absolute Auto 0.5 K/mm3 (0.1-0.6); Monocytes Percent Auto 10.1 % (2.6-8.5); Neutrophils Absolute Auto 2.6 K/mm3 (1.3-6.7); Neutrophils Percent Auto 55.1 % (45.5-73.1); Platelet Count Result 174 k/mm3 (150-375); Red Blood Count 4.58 M/mm3 (4.2-5.4); Red Cell Distribution Width 12.1 % (11.5-14.5); White Blood Count 4.7 K/mm3 (4.5-10.0)
[2022-04-24 09:29] LABS: Blood Urea Nitrogen 24 mg/dL (8-26); Carbon Dioxide 26 mmol/L (22-30); Chloride 105 mmol/L (98-109); Estimated Glomerular Filt Rate > 60; Glucose 106 mg/dL (70-105); Potassium 4.8 mmol/L (3.5-4.9); Sodium 140 mmol/L (138-146)
[2022-04-24 10:34] LABS: Alanine Aminotransferase 21 U/L (6-35); Albumin Level 4.6 g/dL (3.5-5.1); Alkaline Phosphatase 91 U/L (38-126); Anion Gap 6 mmol/L (8-16); Aspartate Amino Transferase 27 U/L (14-36); Bilirubin,Total 0.9 mg/dL (0.2-1.3); Blood Urea Nitrogen 23 mg/dL (7-17); Calcium 9.3 mg/dL (8.4-10.2); Carbon Dioxide 28 mmol/L (22-30); Chloride 106 mmol/L (98-107); Estimated Glomerular Filt Rate > 60; Glucose 107 mg/dL (65-110); Potassium 4.8 mmol/L (3.4-5.0); Sodium 140 mmol/L (137-145)
[2022-04-24 11:02] LABS: Carcinoembryonic Antigen 9.5 ng/mL (0.0-3.0)
== END 2022-04-24 09:11 | disposition home or self-care (01) ==
LOC: ANHLAB 09:11
PROVIDERS: PCP Emergency Medicine; Visit Provider Internal Medicine Hematology & Oncology
DX: C18.9 Malignant neoplasm of colon, unspecified (principal)
CPT/HCPCS: 36415; 80047; 80053; 82378; 85025

== ENCOUNTER 2022-06-24 10:16 | Outpatient (CLI) | payer MEDICARE, SELFPAY ==
--- NOTE | ~2022-06-24 | MM_ITS ---
EXAMINATION: MM screening [place] BI w flores HISTORY: Screening mammogram TECHNIQUE: Craniocaudal and mediolateral oblique 3-D tomosynthesis images were obtained and synthetic 2-D images were generated. CAD analysis was submitted and interpreted. COMPARISON: 01/09/2021, 12/29/2019, 11/19/2018 bilateral screening mammogram examinations BREAST PARENCHYMAL COMPOSITION: The breasts are almost entirely fatty. FINDINGS: There is no evidence of suspicious mass, calcification, or architectural distortion to sugg est malignancy in either breast. There has been no suspicious interval change. IMPRESSION: 1. No mammographic evidence of malignancy. 2. Recommend routine screening mammography in one year. BI-RADS Category 1: Negative Reviewed, dictated and finalized at location A.
== END 2022-06-24 10:17 | disposition home or self-care (01) ==
LOC: ANHIMG 10:17
PROVIDERS: PCP Emergency Medicine; Visit Provider Emergency Medicine
DX: Z12.31 Encounter for screening mammogram for malignant neoplasm of breast (principal)
CPT/HCPCS: 77063; 77067

== ENCOUNTER 2022-08-06 09:32 | Outpatient (CLI) | payer MEDICARE, SELFPAY ==
--- NOTE | ~2022-08-06 | CT_ITS ---
EXAMINATION:CT lung screening DATE: 08/06/2022 09:54 INDICATION: Tobacco use. Smoker who quit 4 years ago with 40 pack year history. TECHNIQUE: Computed tomography (CT) of the chest was performed without intravenous contrast. Automate d exposure control and iterative reconstruction technique were employed. The dose-length product (DLP ) was 105.50 mGy-cm. COMPARISON: Chest CT 08/02/2021 FINDINGS: There is mild scarring at the lung apices. There is mild scarring in paraspinal right lower lobe. There is mild atelectasis bilaterally. There is a stable 4 mm nodule with eccentric calcificat ion in right upper lobe. No pleural effusion. There is a multinodular goiter that extends into the me diastinum. The heart size is normal. There are coronary artery calcifications. No pericardial effusio n. There is severe cervical spondylosis, moderate thoracic spondylosis, and severe lumbar spondylosis . IMPRESSION: 1. Lung-RADS category 2: Benign appearance or behavior. Continue annual screening with noncontrast lo w-dose chest CT in 12 months. Reviewed, dictated and finalized at location A. IMPRESSION: 1. Lung-RADS category 2: Benign appearance or behavior. Continue annual screeni ng with noncontrast low-dose chest CT in 12 months.
== END 2022-08-06 09:33 | disposition home or self-care (01) ==
PROVIDERS: PCP Emergency Medicine; Visit Provider Emergency Medicine
DX: Z12.2 Encounter for screening for malignant neoplasm of respiratory organs (principal); Z87.891 Personal history of nicotine dependence; J84.89 Other specified interstitial pulmonary diseases
CPT/HCPCS: 71271

== ENCOUNTER 2023-05-06 09:05 | Outpatient (CLI) | payer MEDICARE, SELFPAY ==
--- NOTE | ~2023-05-06 | CT_ITS ---
Clinical Indication: Colon cancer CT Scan of the Chest, Abdomen, and Pelvis with Contrast: Technique: Contiguous sections were acquired throughout the chest, abdomen, and pelvis after intraven ous administration of 100 cc of Omnipaque 350. Dose reduction technique was used on this scan by uti lizing automated exposure control and iterative reconstruction technique. The dose-length product (DL P) was 523.74 mGy-cm. COMPARISON: 04/17/2022 Findings: Stable enlarged left thyroid lobe with substernal extension. There is no evidence of any significant mediastinal, hilar or axillary lymphadenopathy. The mediastin al soft tissues and vascular structures otherwise appear normal. There is no evidence of pleural or pericardial effusion. The lungs are clear. No pulmonary nodules or infiltrates are noted. The liver, spleen, pancreas, gallbladder, adrenals and kidneys are within normal limits. There is ath erosclerotic calcification of the aorta, with focal ectatic dilatation to 2.8 cm in diameter at the i nfrarenal portion. No lymphadenopathy. No bowel obstruction or bowel wall thickening. There is evidence of prior right hemicolectomy.. Urinary bladder is unremarkable. No pelvic mass evident. No ascites. Impression: No evidence for active malignancy or metastatic disease. Status post prior right hemicolectomy. Reviewed, dictated and finalized at location . G[facility] SPANISH Impression: No evidence for active malignancy or metastatic disease. Status post prior righ t hemicolectomy.
[2023-05-06 09:35] LABS: Estimated Glomerular Filt Rate > 60
== END 2023-05-06 09:06 | disposition home or self-care (01) ==
PROVIDERS: PCP Emergency Medicine; Visit Provider Internal Medicine Hematology & Oncology
DX: C18.9 Malignant neoplasm of colon, unspecified (principal); Z90.49 Acquired absence of other specified parts of digestive tract
CPT/HCPCS: 71260; 74177; Q9967

== ENCOUNTER 2023-10-28 09:02 | Outpatient (CLI) | payer MEDICARE, SELFPAY ==
--- NOTE | ~2023-10-28 | MM_ITS ---
EXAMINATION: MM screening [place] BI w flores HISTORY: Screening TECHNIQUE: Craniocaudal and mediolateral oblique 3-D tomosynthesis images were obtained and synthetic 2-D images were generated. CAD analysis was submitted and interpreted. COMPARISON: Comparison to multiple prior studies sequentially, with oldest reviewed study dated 04/29. BREAST PARENCHYMAL COMPOSITION: Not dense: There are scattered areas of fibroglandular density. FINDINGS: There is no evidence of suspicious mass, calcification, or architectural distortion to sugg est malignancy in either breast. There has been no suspicious interval change. IMPRESSION: 1. No mammographic evidence of malignancy. 2. Recommend routine screening mammography in one year. BI-RADS Category 1: Negative Reviewed, dictated and finalized at location B.
== END 2023-10-28 09:03 | disposition home or self-care (01) ==
PROVIDERS: PCP Emergency Medicine; Visit Provider Emergency Medicine
DX: Z12.31 Encounter for screening mammogram for malignant neoplasm of breast (principal)
CPT/HCPCS: 77063; 77067

== ENCOUNTER 2023-11-18 12:13 | Outpatient (CLI) | payer MEDICARE, SELFPAY ==
--- NOTE | ~2023-11-18 | DEXA_ITS ---
Bone Density Report Name: KATALINA WOLFF Age: 78 Sex: Female Ethnicity: White Date of : 1945 Indication: postmenopausal; screening for osteoporosis; height loss; cancer; hysterectomy; Referring Provider: HAILE VELOZ Study: Bone densitometry was performed. Exam Date: November 18, 2023 Accession number: [id number] Bone Density: Region BMD T-score Z-score Classification AP Spine(L1-L4) 1.282 2.1 4.7 Normal Femoral Neck (Left) 0.789 -0.5 1.6 Normal Total Hip (Left) 0.908 -0.3 1.6 Normal Femoral Neck (Right) 0.806 -0.4 1.8 Normal Total Hip (Right) 0.984 0.3 2.3 Normal Total Hip Mean 0.946 0.0 2.0 Normal World Health Organization criteria for BMD impression classify patients as: Normal (T-score at or above -1.0), Osteopenia (T-score between -1.0 and -2.5), or Osteoporosis (T-score at or below -2.5). 10-year Fracture Risk: FRAX not reported because: All T-scores for Spine Total, Hip Total, Femoral Neck at or above -1.0 Treated for osteoporosis Clinical Information Provided by Patient: Is being treated for osteoporosis Has used the following medications: Vitamin D Has the following medical conditions: Cancer, Hysterectomy Patient maximum height was 64.75 Menopause Age: 43 Drinks caffeinated beverages Onset of menses at age 10 Number of children 3 Impression: The patient has normal bone mass. Discussion: It is important to ask patients whether they are taking their medications and to encourage continued and appropriate compliance with their osteoporosis therapies to reduce fracture risk. It is also important to review their risk factors and encourage appropriate calcium and vitamin D intakes, exercise, fall prevention and other lifestyle measures. Follow-Up: Consider a repeat BMD and Vertebral Fracture Assessment (VFA) exam in 2 years or sooner if medically necessary, to reassess this patient's status. Reported by: EVAN on 11/18/2023 12:47:00 PM. Reviewed, dictated and finalized at location [facility]
== END 2023-11-18 12:14 | disposition home or self-care (01) ==
LOC: ANHIMG 12:14
PROVIDERS: PCP Emergency Medicine; Visit Provider Emergency Medicine
DX: Z13.820 Encounter for screening for osteoporosis (principal); R29.890 Loss of height; E55.9 Vitamin D deficiency, unspecified; Z78.0 Asymptomatic menopausal state
CPT/HCPCS: 77080

== ENCOUNTER 2024-07-06 12:39 | Outpatient (CLI) | payer MEDICARE, SELFPAY ==
--- NOTE | ~2024-07-06 | CT_ITS ---
EXAMINATION: CT abdomen pelvis w con DATE: 07/06/2024 13:51 INDICATION: Malignant neoplasm of colon. TECHNIQUE: Computed tomography (CT) of the abdomen and pelvis was performed with 100 mL Omnipaque 350 intravenous contrast. Automated exposure control and iterative reconstruction technique were employe d. The dose-length product was 326.24 mGy-cm. COMPARISON: CT abdomen and pelvis 05/06/2023 FINDINGS: The visualized portions of lung bases demonstrate mild atelectasis. No pleural effusion. Th e heart size is normal. There are coronary artery calcifications. No pericardial effusion. The liver and spleen are normal. The gallbladder, pancreas, adrenal glands, and kidneys are normal. There are c hanges of right hemicolectomy. There are no pathologically enlarged lymph nodes. There is no free int raperitoneal fluid. There is thoracolumbar dextroscoliosis and severe spondylosis. IMPRESSION: 1. No evidence of metastatic disease. Reviewed, dictated and finalized at location A.
--- OUTSIDE RECORDS SUMMARY | 2024-07-06 14:35 | XMS_ITS | Clinical Summary ---
Author Organization [facility] Address [address] [place] [address] Phone Care Team Providers Care Product Assembler Name Role Phone Unavailable Unavailable Unavailable Reason for Visit and Chief Complaint NEW PATIENT VISIT Plan of Treatment No Plan of Treatment Recorded Assessments Includes: Assessments from this encounter No Assessments Recorded Medical Equipment - Implanted Devices Includes: Current Devices No Medical Equipment Recorded Medications Administered Includes: Administered Medications from this encounter No Administered Medications Recorded Results Includes: Results discussed during this encounter No Results Recorded For Specified Dates History of Present Illness Includes: History of Present Illness from this encounter No History of Present Illness Recorded Social History No Social History Recorded - Smoking Status Unknown Medical History Includes: Medical History addressed during this encounter No Medical History Recorded Family History Includes: Family History addressed during this encounter No Family History Recorded Review of Systems Includes: Review of Systems from this encounter No Review of Systems Recorded Mental Status Includes: Mental Status from this encounter No Mental Status Recorded Functional Status Includes: Functional Status from this encounter No Functional Status Recorded Physical Exam Includes: Physical Exam from this encounter No Physical Exam Recorded Encounters Encounter Provider Location Date Check-In Time Check- Out Time Diagnosis NEW PATIENT VISIT [facility] 10:30AM 11:59PM Clinical Notes Includes: Clinical Notes from this encounter No Clinical Notes Recorded
--- OUTSIDE RECORDS SUMMARY | 2024-07-06 14:35 | XMS_ITS ---
Care Plan - [facility] Created on: July 06, 2024 KATALINA WOLFF : 1945 Sex: Female Author Organization [facility] Address [address] [place] [address] Phone Care Team Providers Care Retail Delivery Driver Name Role Phone Unavailable Unavailable Unavailable
--- OUTSIDE RECORDS SUMMARY | 2024-07-06 14:35 | XMS_ITS | Clinical Summary ---
Author Organization [facility] Address [address] [place] [address] Phone Care Team Providers Care Locker Room Attendant Name Role Phone Unavailable Unavailable Unavailable Reason for Visit and Chief Complaint GENERAL OFFICE VISIT Plan of Treatment No Plan of [...] Date Check-In Time Check- Out Time Diagnosis GENERAL OFFICE VISIT [facility] 9 10:00AM 11:59PM Clinical Notes Includes: Clinical Notes from this encounter No Clinical Notes Recorded
--- OUTSIDE RECORDS SUMMARY | 2024-07-06 14:35 | XMS_ITS | Clinical Summary ---
Author Organization [facility] Address [address] [place] [id number] Care Team Providers Care Tab Builder Name Role Phone Unavailable Primary Care Provider Unavailabl e Social History Tobacco Use Types Packs/Day Years Used Date Smoking Tobacco: Never Assessed Comments Unknown Sex and Gender Information Value Date Recorded Sex Assigned at Not on file Legal Sex Female 4:20 PM CDT Gender Identity Not on file Sexual Orientation Not on file Plan of Treatment Health Maintenance Due Date Last Done Comments Hepatitis C 1963 DTaP, Tdap and Td Vaccines ( 1 - Tdap) 1965 Zoster Vaccines (1 of 2) 1996 Dexa Scan (General) 2011 Pneumococcal Vaccine: 65+ Ye ars (1 of 1 - PCV) 2011 RSV Immunization or 60+ Years (1 - 1-dose 75+ series) 2021 COVID-19 Vaccine (2023-2 5 season) 2023 Influenza Adult (#1) 2024 Meningococcal B Vaccine Aged Out No l onger eligible based on patient's age to complete this topic Meningococcal Vaccine Aged Out No kyung marni eligible based on patient's age to complete this topic RSV Immunizations Under 20 Months Aged Out No longer eligible based on patient's age to complete this topic
--- OUTSIDE RECORDS SUMMARY | 2024-07-06 14:35 | XMS_ITS | Referral Summary ---
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
--- OUTSIDE RECORDS SUMMARY | 2024-07-06 14:35 | XMS_ITS | Continuity of Care Document ---
Author Organization [facility] [place] Address [address] [place] [address] Phone Care Team Providers Care Immigration Patrol Inspector Name Role Phone Landry Hwang MD Unavailable [...] Diagnoses Date Provider Providers Copied on Encounter [facility], [address] [place] [address] [address], [place], [place], [address], [place] tel:[phone] SEC Be [place] Professional 1 mo CE PO (chief complaint) Surgery follow-up examination Jaiden Alatorre. [address] [employer], [facility] [place], [address], [place]. tel:[phone] Referring Provider: Miles Vasquez OD, [address] [place] [address], [address]. tel:[phone] [facility], [address], [place], [place], [address], tel:[phone] SEC Be [place] Professional Post-Op (chief complaint) Surgery follow-up examination 7 Shaggy Perea. [address], [address], [place], [place], [address], [place]. tel:[phone] Referring Provider: Miles Vasquez OD, [address] [place] [address], [address]. tel:[phone] [facility] [place] [facility], [address], [place], [place], [address], [place] tel:[phone] SEC [place] Professional 1 DAY PO IOL OS (chief complaint) No Information 7 Jaiden Alatorre. [address], [address], [place], [place], [address], [place]. tel:[phone] Referring Provider: Miles Vasquez OD, [address] [place] [address], [address]. tel:[phone] [facility] Eye [facility], [address], [place], [place], [address], [place] [phone] [facility] No Information Sep-2 7 Jaiden Alatorre. [address] [facility] [place], [address], [place]. tel:[phone] Referring Provider: Miles Vasquez OD, [address] [place] [address], [address]. tel:[phone] [facility], [address] [place] [address] [address], [place], [place], [address], [place] tel:[phone] SEC Floyd Magalys Dao No Information 7 Jaiden Alatorre. [address] [facility], [facility] [place], [place], [address], [place]. tel:[phone] [facility], [address] [place] [address] [address], [place], [place], [address], [place] tel:[phone] SEC Be [place] Professional Post-Op (chief complaint) No Information Sep-0 7 Gallagherleonie Lozada. [address] [place], [address], [place]. tel:[phone] Referring Provider: Miles Vasquez OD, [address] [place] [address], [address]. tel:[phone] [facility], [address] [place] [address] [address], [place], [place], [address], [place] tel:[phone] SEC Be LAR[place] Professional 1 week PO PCIOL (chief complaint) No Information 0 7 Shaggy Perea. [address] [facility], [facility] [place], [address], . tel:[phone] Referring Provider: Miles Vasquez OD, [address] [place] [address], [address]. tel:[phone] [facility], [address] [place] [address] [address], [place], [place], [address], tel:[phone] SEC [place] Professional 1 day CE PO (chief complaint) No Information 7 Jaiden Alatorre. [address], [address] [place], [address], [place]. tel:[phone] Referring Provider: Miles Vasquez OD, [address] [place] [address], [address]. tel:[phone] [facility], [address] [place] [address] [address], [place], [address], [place] tel:[phone] [place] [address] No Information 7 Jaiden Alatorre. [address] [employer], [address] [place], [address], [place]. tel:[phone] Referring Provider: Miles Vasquez OD, [address] [place] [address], [address]. tel:[phone] Office/outpat ient Visit, [facility], [address] [place] [address] [address], [place], [place], [address], tel:[phone] SEC Be [place] Professional Cataract evaluation (chief complaint) No Information 7 Jaiden Alatorre. [address], [address], [place], [place], [address], [place]. tel:[phone] Referring Provider: Miles Vasquez OD, [address] [place] [address], [address]. tel:[phone] Office/outpat ient Visit, [facility], [address] [place] [address] [address], [place], [place], [address], tel:[phone] SEC [place] Professional Cataract evaluation (chief complaint) No Information 7 Jaiden Alatorre. [address] [facility], [address], [place], [place], [address], [place]. tel:[phone] Referring Provider: Miles Vasquez OD, [address] [facility], [place], [address]. tel:[phone] [facility], [address], [place], [place], [address], [place] tel:[phone] SEC Be LAR[place] Professional No Information 7 Aileen Lozada. [address] [facility], [place], [address], [place]. tel:[phone] Family History Family Member Type Diagnosis Age [...] and left eye. Pt states he at [employer] thinks she may have cataracts. Pt states [...] Miles Vasquez OD for regularly scheduled visits Follow up - as scheduled Impression/Plan - Go od post op results after CE OS. Continue post op drops as instructed. Return to clinic as scheduled or sooner with any problems. Impression/Plan - On e Day PO s/p [...]
--- OUTSIDE RECORDS SUMMARY | 2024-07-06 14:36 | XMS_ITS | Clinical Summary ---
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
--- OUTSIDE RECORDS SUMMARY | 2024-07-06 14:36 | XMS_ITS | Clinical Summary ---
Author Organization [facility] Jean-Paul Lafleur Address [address] [facility] [place] [address] Care Team Providers Care Form Tamper Name Role Phone Aaron Hudson MD Primary Care Provider [phone] Allergies No known active allergies Medications gabapentin (NEURONTIN) 100 mg capsule TAKE 1 CAPSULE BY MOUTH THREE TIMES DAILY 11/04/2020 Active cholecalciferol , vitamin D3, 5,000 unit Take 1,000 Units by mouth daily. Active OMEGA-3 FATTY ACIDS-FISH OIL ORAL Take by mouth. Active magnesium oxide 250 mg magnesium Tablet Take 500 mg by mouth daily. Active simvastatin (ZOCOR) 5 mg tablet Take 5 mg by mouth daily with supper. Active folic acid-vit B6-vit B12 (FOLBEE,FOLTX) 2.5-25-1 mg Tablet Take 1 Tablet by mouth daily. Active Active Problems Problem Noted Date Diagnosed Date Malignant neoplasm of transverse colon Encounters Date Type Department Care Team Description 06/30/2024 External Device Data ST[facility] ABSTRACTION Provider, Abstract 06/30/2024 External Device Data [facility] ABSTRACTION Provider, Abstract 06/19/2024 External Device Data [facility] ABSTRACTION Provider, Abstract 06/18/2024 External Device Data [facility] ABSTRACTION Provider, Abstract 06/01/2024 External Device Data [facility] ABSTRACTION Provider, Abstract 05/06/2024 External Device Data ST[facility] ABSTRACTION Provider, Abstract from Last 3 Months Family History Medical History Relation Name Comments Heart Disease Brother 1 Heart Disease Brother 2 Heart Disease Father Diabetes Mother Relation Name Status Comments Brother 1 Brother 2 Daughter 1 Alive Daughter 2 Alive Father Mother Son Alive Social History Tobacco Use Types Packs/Day Years Used Date Smoking Tobacco: Former Cigarettes 1 40 0 04/14/1978 - 04/14/2018 Smokeless Tobacco: Never Tobacco Cessation:Counseling Given: Not Answered Alcohol Use Standard Drinks/Week Comments Not Currently 0 (1 standard drink = 0.6 oz pur e alcohol) Comments No Sex and Gender Information Value Date Recorded Sex Assigned at Not on file Legal Sex Female 1:52 PM CDT Gender Identity Not on file Sexual Orientation Not on file Last Filed Vital Signs Vital Sign Reading Time Taken Comments Blood Pressure 111/64 01/07/2024 10:04 AM CDT Pulse 76 01/07/2024 10:04 AM CDT Temperature 36.6 C (97.8 F) 01/07/2024 10:04 AM CDT Respiratory Rate 15 01/07/2024 10:04 AM CDT Oxygen Saturation 98% 01/07/2024 10:04 AM CDT Inhaled Oxygen Concentration - - Weight 67.9 kg (149 lb 9.6 oz) 01/07/2024 10:04 AM CDT Height 158.8 cm (5' 2.5 ) 01/21/2022 10:09 AM CD T Body Mass Index 26.93 01/21/2022 10:09 AM CDT Plan of Treatment Upcoming Encounters Date Type Department Care Team (Late st Contact Info) Description 07/13/2024 10:00 AM CDT Office Visit [facility] Oncology and Hematology - [place] [address] [place] [address] [address] Phong Lomax MD [address] [facility] [address] [place] [address] Health Maintenance Due Date Last Done Comments DTAP/TDAP/TD VACCINES (1 - Tdap) 1965 Lung Cancer Screening 1996 PNEUMOCOCCAL VACCINE 50+ YEARS (1 of 1 - PCV) 05/09/18 97 ZOSTER VACCINE (1 of 2) 1996 OSTEOPOROSIS SCREENING 2011 RSV VACCINE (60+ or ) (1 - 1-dose 75+ series) 2021 INFLUENZA VACCINE (#1) 2023 Procedures Procedure Name Priority Date/Time Associated Diagnosis Comments CEA Routine 06/30/2024 1:05 PM CDT Malignant neoplasm of colon, unspecified part of colon (CMS/HCC) from Last 3 Months Results * (ABNORMAL) CEA (06/30/2024 1:05 PM CDT) CEA 5.5(H) See Note: ng/mL [facility] Comment: Reference Range: Non-Smoker: <2.5 Smoker: <5.0 This test was performed using the Siemens chemiluminescent method. Values obtained from different assay methods cannot be used interchangeably. CEA levels, regardless of value, should not be interpreted as absolute evidence of the presence or absence of disease. FASTING:NO FASTING: NO Test Performed at: [facility] [address] [address] [id number] Micky Clarke MD Blood 06/30/2024 1:05 PM CDT 06/30/2024 1:06 PM CDT Phong Lomax MD CHEMISTRY ORDERABLES Final Resu lt [facility] [phone] [facility] [address] [address] [place] [id number] from Last 3 Months Insurance Care Teams Form Tamper Relationship Specialty Start Date End Date Aaron Hudson MD [address] [address] PCP - General Internal Medicine 12/04/20
--- OUTSIDE RECORDS SUMMARY | 2024-07-06 14:36 | XMS_ITS ---
Author Organization [facility] Address [address] [place] [address] Phone Care Team Providers Care Implementation Manager Name Role Phone Unavailable Unavailable Unavailable Plan of Treatment No Plan of Treatment Recorded Assessments Includes: Assessments for all patient encounters No Assessments Recorded Medical Equipment - Implanted Devices Includes: Current and historical Devices No Medical Equipment Recorded Medications Administered Includes: Administered Medications in patient's chart No Administered Medications Recorded Results Includes: Results from 07/07/2023 through 07/06/2024 No Results Recorded For Specified Dates History of Present Illness History of Present Illness not supported for this document type No History of Present Illness Recorded Social History No Social History Recorded - Smoking Status Unknown Medical History Includes: Medical History in patient's chart No Medical History Recorded Family History Includes: Family History in patient's chart No Family History Recorded Review of Systems Review of Systems not supported for this document type No Review of Systems Recorded Mental Status No Mental Status Recorded Functional Status No Functional Status Recorded Physical Exam Physical Exam not supported for this document type No Physical Exam Recorded Clinical Notes Includes: Signed Clinical Notes starting from 05/03/2022 No Clinical Notes Recorded
== END 2024-07-06 12:40 | disposition home or self-care (01) ==
PROVIDERS: PCP Emergency Medicine; Visit Provider Internal Medicine Hematology & Oncology
DX: C18.9 Malignant neoplasm of colon, unspecified (principal)
CPT/HCPCS: 74177; Q9967

== ENCOUNTER 2024-07-13 10:02 | Outpatient (CLI) | payer MEDICARE, SELFPAY ==
[2024-07-13 10:14] LABS: Basophils Percent Auto 0.7 % (0.2-1.2); Eosinophils Absolute Auto 0.1 K/mm3 (0-0.3); Eosinophils Percent Auto 1.7 % (0-4.4); Hematocrit 41.4 % (37.0-47.0); Immature Granulocyte Absolute 0.01 K/mm3 (0.00-0.031); Immature Granulocyte Percent A 0.2 % (0-0.5); Lymphocytes Absolute Auto 1.27 K/mm3 (0.9-3.2); Lymphocytes Percent Auto 31.7 % (18.3-44.2); Mean Corpuscular HGB Conc 33.8 g/dl (32-36); Mean Corpuscular Volume 94.5 fl (80-100); Mean Platelet Volume 10.7 fl (7.4-10.4); Monocytes Absolute Auto 0.4 K/mm3 (0.1-0.6); Neutrophils Absolute Auto 2.2 K/mm3 (1.3-6.7); Neutrophils Percent Auto 54.7 % (45.5-73.1); Platelet Count Result 168 k/mm3 (150-375); Red Blood Count 4.38 M/mm3 (4.2-5.4); Red Cell Distribution Width 12.3 % (11.5-14.5)
[2024-07-13 10:17] LABS: Blood Urea Nitrogen 20 mg/dL (8-26); Carbon Dioxide 27 mmol/L (22-30); Chloride 102 mmol/L (98-109); Estimated Glomerular Filt Rate > 60; Glucose 101 mg/dL (70-105); Ionized Calcium (POC) 1.19 mmol/L (1.11-1.31); Potassium 4.6 mmol/L (3.5-4.9); Sodium 138 mmol/L (138-146)
--- OUTSIDE RECORDS SUMMARY | 2024-07-13 10:58 | XMS_ITS | Continuity of Care Document ---
Author Organization [facility] Address [address] [facility] [address] [place] [address] Phone Care Team Providers Care Air Dispatcher Name Role Phone Landry Hwang MD Unavailable [...] Diagnoses Date Provider Providers Copied on Encounter [facility], [address] [place] [address] [address], [place], [place], [address], [place] tel:[phone] SEC Be LAR[place] Professional 1 mo CE PO (chief complaint) Surgery follow-up examination Jaiden Alatorre. [address], [facility] [place], [address], [place]. tel:[phone] Referring Provider: Miles Vasquez OD, [address] [place] [address], [address]. tel:[phone] [facility], [address], [place], [place], [address], tel:[phone] SEC Be [place] Professional Post-Op (chief complaint) Surgery follow-up examination 7 Shaggy Perea. [address], [address], [place], [place], [address], [place]. tel:[phone] Referring Provider: Miles Vasquez OD, [address] [place] [address], [address]. tel:[phone] [facility], [address], [place], [place], [address], [place] tel:[phone] SEC Be [place] Professional 1 DAY PO IOL OS (chief complaint) No Information 7 Jaiden Alatorre. [address], [address], [place], [place], [address], [place]. tel:[phone] Referring Provider: Miles Vasquez OD, [address] [place] [address], [address]. tel:[phone] [facility], [address], [place], [place], [address], [place] [phone] [facility] No Information Sep-2 7 Jaiden Alatorre. [address] [facility] [place], [address], [place]. tel:[phone] Referring Provider: Miles Vasquez OD, [address] [place] [address], [address]. tel:[phone] [facility], [address] [place] [address] [address], [place], [place], [address], [place] tel:[phone] SEC [place] Magalys Dao No Information 7 Jaiden Alatorre. [address] [facility], [facility] [place], [address], [place]. tel:[phone] [facility], [address] [place] [address] [address], [place], [place], [address], [place] tel:[phone] SEC Be LARSON Professional Post-Op (chief complaint) No Information Sep-0 7 Gallagherleonie Lozada. [address] [place], [address], [place]. tel:[phone] Referring Provider: Miles Vasquez OD, [address] [place] [address], [address]. tel:[phone] [facility], [address] [place] [address] [address], [place], [place], [address], [place] tel:[phone] SEC Be LAR[place] Professional 1 week PO PCIOL (chief complaint) No Information 0 7 Shaggy Perea. [address] [facility], [facility] [place], [address], . tel:[phone] Referring Provider: Miles Vasquez OD, [address] [place] [address], [address]. tel:[phone] [facility], [address] [place] [address] [address], [place], [place], [address], tel:[phone] SEC Be [place] Professional 1 day CE PO (chief complaint) No Information 7 Jaiden Alatorre. [address], [address] [place], [place], [address], [place]. tel:[phone] Referring Provider: Miles Vasquez OD, [address] [place] [address], [address]. tel:[phone] [facility], [address] [place] [address] [address], [place], [address], [place] tel:[phone] [place] [address] No Information 7 Jaiden Alatorre. [address], [address] [place], [address], [place]. tel:[phone] Referring Provider: Miles Vasquez OD, [address] [place] [address], [address]. tel:[phone] Office/outpat ient Visit, [facility], [address] [place] [address] [address], [place], [place], [address], tel:[phone] SEC [place] Professional Cataract evaluation (chief complaint) No Information 7 Jaiden Alatorre. [address], [address], [place], [place], [address], [place]. tel:[phone] Referring Provider: Miles Vasquez OD, [address] [place] [address], [address]. tel:[phone] Office/outpat ient Visit, [facility], [address] [place] [address] [address], [place], [place], [address], tel:[phone] SEC [place] Professional Cataract evaluation (chief complaint) No Information 7 Jaiden Alatorre. [address] [facility], [address], [place], [place], [address], [place]. tel:[phone] Referring Provider: Miles Vasquez OD, [address] [facility], [place], [address]. tel:[phone] [facility] Eye [facility], [address], [place], [place], [address], [place] tel:[phone] SEC Be LAR[place] Professional No Information [address] [facility], [place], [address], [place]. tel:[phone] Family History Family Member Type Diagnosis Age At Onset Mother Problem (finding) diabetes mellitus type 2 Mother Problem (finding) Retinal disease Payers Payer name Insurance type Covered libertarian ID Authoriza tion(s) No Information Social History [...] and left eye. Pt states he at [employer] thinks she may have cataracts. Pt states [...]
--- OUTSIDE RECORDS SUMMARY | 2024-07-13 10:58 | XMS_ITS | Clinical Summary ---
Author Organization [facility] Address [address] [place] [address] Phone Care Team Providers Care Torch Operator Name Role Phone Unavailable Unavailable Unavailable Reason [...]
--- OUTSIDE RECORDS SUMMARY | 2024-07-13 10:58 | XMS_ITS | Clinical Summary ---
Author Organization [facility] Address [address] [place] [address] Care Team Providers Care Jewelry Casting Model Maker Name Role Phone Unavailable Primary Care Provider [...]
--- OUTSIDE RECORDS SUMMARY | 2024-07-13 10:59 | XMS_ITS ---
Author Organization [facility] Address [address] [place] [address] Phone Care Team Providers Care Buzzsaw Operator Helper Name Role Phone Unavailable Unavailable Unavailable Plan of Treatment No Plan of Treatment Recorded Assessments Includes: Assessments for all patient encounters No Assessments Recorded Medical Equipment - Implanted Devices Includes: Current and historical Devices No Medical Equipment Recorded Medications Administered Includes: Administered Medications in patient's chart No Administered Medications Recorded Results Includes: Results from 07/14/2023 through 07/13/2024 No Results Recorded For Specified Dates History [...]
--- OUTSIDE RECORDS SUMMARY | 2024-07-13 10:59 | XMS_ITS | Encounter Summary ---
Author Organization [facility] Address [address] [place] [address] Care Team Providers Care Freelance Interpreter/Translator Name Role Phone Aaron Hudson MD Primary Care Provider [phone] Encounter Details Date Type Department Care Team (Late Contact Info) Description 07/07/2024 Orders Only [facility] Oncology and Hematology [facility] [address] [place] [address] Phong Lomax MD [address] [place] [address] Social History Tobacco Use Types Packs/Day Years Used Date Smoking Tobacco: Former Cigarettes 1 40 0 04/14/1978 - 04/14/2018 Smokeless Tobacco: Never Alcohol Use Standard Drinks/Week Comments Not Currently 0 (1 standard drink = 0.6 oz pur e alcohol) Comments No Sex and Gender Information Value Date Recorded Sex Assigned at Not on file Legal Sex Female 1:52 PM CDT Gender Identity Not on file Sexual Orientation Not on file documented as of this encounter Plan of Treatment Upcoming Encounters Date Type Department Care Team (Late Contact Info) Description 01/12/2025 10:15 AM CDT Office Visit [facility] Oncology and Hematology [address] [place] [address] Phong Lomax MD [address] [place] [address] documented as of this encounter Procedures Procedure Name Priority Date/Time Associated Diagnosis Comments CT ABDOMEN PELVIS W CONTRAST Routine 07/06/2024 2:27 PM CDT documented in this encounter Results * CT ABDOMEN PELVIS W CONTRAST (07/06/2024 2:27 PM CDT) Anatomical Region Laterality Modality Abdomen Computed Tomogra phy us Phong Lomax MD CT ORDERABLES Final Result documented in this encounter Visit Diagnoses Not on filedocumented in this encounter Care Teams Freelance Interpreter/Translator Relationship Specialty Start Date End Date Aaron Hudson MD [address] [place] [address] PCP - General Internal Medicine 12/04/20 documented as of this encounter
--- OUTSIDE RECORDS SUMMARY | 2024-07-13 10:59 | XMS_ITS | Encounter Summary ---
Author Organization [facility] [employer] [facility] Address [address] [place] [address] Care Team Providers Care Sap Business Intelligence Consultant Name Role Phone Aaron Hudson MD Primary Care Provider + [phone] Reason for Referral * Eval and Treat (Routine) - Open Specialty Diagnoses / Procedures Referred By Odalis fuentes Referred To Contact Gastroenterology Diagnoses Malignant neoplasm of colon, unspecified part of colon (CMS/HCC) Procedures AL OFFICE/OUTPATIENT ESTABLISHED MOD MDM 30 MIN AL OFFICE/OUTPATIENT NEW MODERATE MDM 45 MINUTES Phong Lomax MD [address] [employer] [facility] [address] [place] [address] Phone: tel: fax: Referral ID Status Reason Start Date Expiration Date Visits Re quested Visits Authorized [id number] Open 07/13/2024 07/13/2025 1 1 Reason for Visit * Reason Comments Cancer Follow Up Encounter Details Date Type Department Care Team (Late st Contact Info) Description 07/13/2024 10:00 AM CDT Office Visit [facility] Oncology and Hematology - [address] [place] [address] Phong Lomax MD [facility] [employer] [facility] [address] [place] [address] Malignant neoplasm of colon, unspecified part of colon (CMS/HCC) (Primary Dx) Social History Tobacco Use Types Packs/Day Years [...] on file documented as of this encounter Last Filed Vital Signs Vital Sign Reading Time Taken Comments Blood Pressure 118/73 07/13/2024 10:17 AM CDT Pulse 80 07/13/2024 10:17 AM CDT Temperature 35.6 C (96.1 F) 07/13/2024 10:17 AM CDT Respiratory Rate 15 07/13/2024 10:17 AM CDT Oxygen Saturation 96% 07/13/2024 10:17 AM CDT Inhaled Oxygen Concentration - - Weight 64.4 kg (142 lb) 07/13/2024 10:17 AM CDT Height - - Body Mass Index 25.56 01/21/2022 10:09 AM CDT documented in this encounter Progress Notes * Phong Lomax MD - 07/13/2024 10:14 AM CDT HEMATOLOGY / ONCOLOGY PROGRESS NOTE Patient Identification: Name: Nataliia Arteaga Age: 79 y.o. 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 CURRENT TREATMENT surveillance TREATMENT HISTORY SUBJECTIVE Patient came to the office for follow-up visit. She denies any nausea vomiting. Denies any diarrheaconstipation. Neuropathy remains stable. No other new complaints. Review of system Constitutional: denies fevers, sweats, denies any tiredness and fatigue, weight and appetite stable HEENT: denies sinus congestion, hearing or vision problems Respiratory: denies cough, dyspnea, wheeze Cardiovascular: denies chest pain, exertional chest pressure/discomfort, nausea, syncope, shortnessof breath GI: denies constipation, dsyphagia, reflux symptoms, vomiting, melena, denies any diarrhea : denies dysuria, frequency, incontinence, urgency Integumentary system: no lymphadenopathy, sweats, flushing Musculoskeletal: denies: myalgia, denies any arthralgia Neurological: denies blurry or disturbed vision, stable peripheral neuropathy Skin: No lumps, bumps or rashes. 12 point review of system was reviewed Objective: Vital signs in last 24 hours: As per nursing note Exam: General appearance: alert, cooperative, no distress, appears stated age Head: normocephalic, without obvious abnormality, atraumatic Eyes: conjunctivae/corneas clear, EOM's intact Ears: normal external ear canals AU Nose: Nares normal. Septum midline. Mucosa normal. No drainage or sinus tenderness Throat: Lips, mucosa, and tongue normal. Teeth and gums normal Neck: supple, symmetrical, trachea midline. Lungs: clear to auscultation bilaterally Heart: regular rate and rhythm, S1, S2 normal, no murmur, click, rub or gallop Abdomen: soft, non-tender. Bowel sounds normal. No masses, No organomegaly Extremities: extremities normal, atraumatic, no cyanosis or edema Skin: Skin color, texture, turgor normal. No rashes or lesions Lymph nodes: No lymphadenopathy Neuro: No obvious focal deficit Exam as above PATH LABS labs from December 06 showed CEA 6.9 hemoglobin 11.7 AST 10 ALT 6 Labs from March 07 showed CEA 5.5 creatinine 0.6 total protein 6.6 AST 16 ALT 12 WBC 4.8 hemoglobin 13.4 platelet 173,000 Labs from June 12 showed CEA 6.7 hemoglobin 13.6 creatinine 0.6 AST 20 ALT 15 Labs from November 01 showed hemoglobin 13.7 creatinine 0.79 AST 17 ALT 13 CEA 6.4 Labs from January 16 showed CEA 7.1 creatinine 0.7 total bilirubin 0.8 C4.4 hemoglobin 13.7 [id number] Labs from April 24 showed WBC 4.7 hemoglobin 14.6 platelet 174,000 creatinine 0.9 Labs from July 25 showed WBC 4.4 hemoglobin 14 platelet 193,000 creatinine 0.7 total bilirubin 0.8CEA is pending. 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 Patient had surveillance colonoscopy done on November 20, 2021 showed internal hemorrhoids and ileocolonic anastomosis. Labs showed improvement in the CEA now down to 5.5. CT scan abdomen and pelvis done on July 06 showed no evidence of metastatic disease. She is clinically asymptomatic. Patient will have repeat surveillance colonoscopy in November 2024. I plan to see her back in 6 months with repeat labs. Peripheral neuropathy. Stable on vitamin B12, B6 and gabapentin. 07/13/2024 Phong Lomax MD documented in this encounter Plan of Treatment Upcoming Encounters Date Type Department Care Team (Late st Contact Info) Description 01/12/2025 10:15 AM CDT Office Visit [facility] Oncology and Hematology [facility] [address] [facility] [address] [place] [address] Phong Lomax MD [address] [facility] [address] [place] [address] Scheduled Orders Name Type Priority Associated Diagnoses Orde r Schedule CBC WITH DIFFERENTIAL Lab Stat Malignant neoplasm of colon, unspecified part of colon (CMS/HCC) Expected: 01/12/2025, Expires: 07/13/2025 CEA Lab Routine Malignant neoplasm of colon, unspecified part of colon (CMS/HCC) Expected: 01/12/2025, Expires: 07/13/2025 COMPREHENSIVE METABOLIC PANEL Lab Stat Malignant neoplasm of colon, unspecified part of colon (CMS/HCC) Expected: 01/12/2025, Expires: 07/13/2025 Scheduled Referrals Name Type Priority Associated Diagnoses Order Schedule AMB REFERRAL TO GASTROENTEROLOGY Outpatient Referral Routine Malignant neoplasm of colon, unspecified part of colon (CMS/HCC) Ordered: 07/13/2024 documented as of this encounter Visit Diagnoses Diagnosis Malignant neoplasm of colon, unspecified part of colon (CMS/HCC)- Primary documented in this encounter Care Teams Sap Business Intelligence Consultant Relationship Specialty Start Date End Date Aaron Hudson MD [address] [place] [address] PCP - General Internal Medicine 12/04/20 documented as of this encounter
--- OUTSIDE RECORDS SUMMARY | 2024-07-13 10:59 | XMS_ITS ---
Care Plan - [facility] Created on: July 13, 2024 KATALINA WOLFF : 1945 Sex: Female Author Organization [facility] Address [address] [place] [address] Phone Care Team Providers Care Asset Protection Greeter Name Role Phone Unavailable Unavailable Unavailable
--- OUTSIDE RECORDS SUMMARY | 2024-07-13 10:59 | XMS_ITS | Clinical Summary ---
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
--- OUTSIDE RECORDS SUMMARY | 2024-07-13 10:59 | XMS_ITS | Referral Summary ---
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
--- OUTSIDE RECORDS SUMMARY | 2024-07-13 10:59 | XMS_ITS | Clinical Summary ---
Author Organization [facility] Address [address] [place] [address] Phone Care Team Providers Care Security Project Manager Name Role Phone Unavailable Unavailable Unavailable Reason [...]
--- OUTSIDE RECORDS SUMMARY | 2024-07-13 10:59 | XMS_ITS | Clinical Summary ---
Author Organization [facility] Jean-Paul rodriguez Joanna Address [address] [place] [address] Care Team Providers Care Confectionery Drops Machine Operator Name Role Phone Aaron Hudson MD Primary Care Provider + [phone] Allergies No known active allergies Medications gabapentin [...] Encounters Date Type Department Care Team Description 07/13/2024 10:00 AM CDT Office Visit [facility] Oncology and Hematology - [address] [place] [phone] Phong Lomax MD Malignant neoplasm of colon, unspecified part of colon (CMS/HCC) (Primary Dx) 07/07/2024 Orders Only [facility] Oncology and Hematology - [address] [place] [address] Phong Lomax MD 06/30/2024 External Device Data STL ABSTRACTION Provider, [...] (142 lb) 07/13/2024 10:17 AM CDT Height 158.8 cm (5' 2.5 ) 01/21/2022 10:09 AM CD T Body Mass Index 25.56 01/21/2022 10:09 AM CDT Plan of Treatment Upcoming Encounters Date Type Department Care Team (Late st Contact Info) Description 01/12/2025 10:15 AM CDT Office Visit [facility] Oncology and Hematology - [place] [address] [place] [address] Phong Lomax MD [address] [facility] [address] [place] [address] Health Maintenance Due Date Last Done Comments DTAP/TDAP/TD VACCINES (1 - Tdap) 1965 Lung Cancer Screening 1996 PNEUMOCOCCAL VACCINE 50+ YEARS (1 of 1 - PCV) 05/09/18 97 ZOSTER VACCINE (1 of 2) 1996 OSTEOPOROSIS SCREENING 2011 RSV VACCINE (60+ or ) (1 - 1-dose 75+ series) 2021 INFLUENZA VACCINE (#1) 2023 Medicare Advantage ([place]) Prev entative Visit/Annual Wellness Visit 04/14/2024 06/05/2022 Procedures Procedure Name Priority Date/Time Associated Diagnosis Comments CT ABDOMEN PELVIS W CONTRAST Routine 07/06/2024 2:27 PM CDT CEA Routine 06/30/2024 1:05 PM CDT Malignant neoplasm of colon, unspecified part of colon (CMS/HCC) from Last 3 Months Results * CT ABDOMEN PELVIS W CONTRAST (07/06/2024 2:27 PM CDT) Anatomical Region Laterality Modality Abdomen Computed Tomogra phy Phong Lomax MD CT ORDERABLES Final Result * (ABNORMAL) CEA (06/30/2024 1:05 PM CDT) CEA 5.5(H) See Note: ng/mL [place] [facility] Comment: Reference Range: Non-Smoker: <2.5 Smoker: <5.0 This test was performed using the Siemens chemiluminescent method. Values obtained from different assay methods cannot be used interchangeably. CEA levels, regardless of value, should not be interpreted as absolute evidence of the presence or absence of disease. FASTING:NO FASTING: NO Test Performed at: [facility] [address] [place] [address] Micky Clarke MD Blood 06/30/2024 1:05 PM CDT 06/30/2024 1:06 PM CDT Phong Lomax MD CHEMISTRY ORDERABLES Final Resu lt [facility] [phone] [place] [address] [address] [place] [phone] from Last 3 Months Insurance AETNA PPO MCR Care Teams Confectionery Drops Machine Operator Relationship Specialty Start Date End Date Aaron Hudson MD [address] [place] [address] PCP - General Internal Medicine 12/04/20
[2024-07-13 12:42] LABS: Alanine Aminotransferase 21 U/L (6-35); Albumin Level 4.4 g/dL (3.5-5.1); Alkaline Phosphatase 97 U/L (38-126); Anion Gap 9 mmol/L (4-12); Aspartate Amino Transferase 33 U/L (14-36); Bilirubin,Total 1.1 mg/dL (0.2-1.3); Blood Urea Nitrogen 21 mg/dL (7-17); Calcium 9.6 mg/dL (8.4-10.2); Carbon Dioxide 29 mmol/L (22-30); Chloride 101 mmol/L (98-107); Estimated Glomerular Filt Rate > 60; Glucose 107 mg/dL (65-110); Potassium 4.8 mmol/L (3.4-5.0); Sodium 139 mmol/L (137-145)
== END 2024-07-13 10:03 | disposition home or self-care (01) ==
LOC: ANHLAB 10:03
PROVIDERS: PCP Emergency Medicine; Visit Provider Internal Medicine Hematology & Oncology
DX: C18.9 Malignant neoplasm of colon, unspecified (principal)
CPT/HCPCS: 36415; 80047; 80053; 85025

== ENCOUNTER 2024-11-07 11:08 | Emergency (ER) | payer MEDICARE, SELFPAY ==
--- OUTSIDE RECORDS SUMMARY | 2024-11-07 11:10 | XMS_ITS | Referral Summary ---
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
--- OUTSIDE RECORDS SUMMARY | 2024-11-07 11:10 | XMS_ITS | Continuity of Care Document ---
Author Organization [facility] Address [address] [facility] [place] [address] Phone Care Team Providers Care Marketing Programs Manager Name Role Phone Landry Hwang MD Unavailable Unavailable Allergies, Adverse Reactions, Alerts Substance Reaction Status Criticality No Known Allergies Active No Inform ation Medications Medication Instructions Dosage Effective Dates (start - stop) Status Comments cyanocobalamin 2 mg-levomefolate jarod 1.13 mg-pyridoxine 25 mg tablet - Active aspirin 81 mg tablet,delayed release take 1 tablet by oral route every day 81 MG - Active simvastatin 20 mg tablet take 1 tablet by oral route every day in the evening 20 MG - Active prednisolone acetate 1 % eye drops,suspension instill 1 drop in the LEFT eye QID x 1 week, TIDx 1 week, BID x 1 week, then Qday x 1 week, then stop - No Longer Active Polytrim 10,000 unit-1 mg/mL eye drops instill 1 drop in the LEFT eye QID for 1 week then, TID x 3 weeks, then stop. - No Longer Active diclofenac 0.1 % eye drops Instill 1 drop in the LEFT eye TID x 4 weeks - No Longer Active Procedures Procedure Date [...] Diagnoses Date Provider Providers Copied on Encounter [facility], [address] [place] [address] [address], [place], [place], [id number], [place] tel:[phone] SEC Be [place] Professional 1 mo CE PO (chief complaint) Surgery follow-up examination Jaiden Alatorre. [address], [facility] [place], [place], [id number], [place]. tel:[phone] Referring Provider: Miles Vasquez OD, [address] [place] [address], [address]. tel:[phone] [facility], [address], [place], [place], [id number], tel:[phone] SEC Be [place] Professional Post-Op (chief complaint) Surgery follow-up examination 7 Shaggy Perea. [address], [address], [place], [place], [address], [place]. tel:[phone] Referring Provider: Miles Vasquez OD, [address] [place] [address], [address]. tel:[phone] [facility], [address], [place], [place], [id number], [place] tel:[phone] SEC Be [place] Professional 1 DAY PO IOL OS (chief complaint) No Information 7 Jaiden Alatorre. [address], [address], [place], [place], [address], [place]. tel:[phone] Referring Provider: Miles Vasquez OD, [address] [place] [address], [address]. tel:[phone] [facility], [address], [place], [place], [id number], [place] [phone] [facility] No Information Sep-2 7 Jaiden Alatorre. [address] [facility] [place], [id number], [place]. tel:[phone] Referring Provider: Miles Vasquez OD, [address] [place] [address], [address]. tel:[phone] [facility], [id number] [place] [address] [address], [place], [place], [id number], [place] tel:[phone] SEC Dallas Magalys Dao No Information 7 Jaiden Alatorre. [address] [facility], [facility] [place], [place], [address], [place]. tel:[phone] [facility], [id number] [place] [address] [address], [place], [place], [id number], [place] tel:[phone] SEC Be [place] Professional Post-Op (chief complaint) No Information Sep-0 7 Gallagherleonie Lozada. [address] [place], [address], [place]. tel:[phone] Referring Provider: Miles Vasquez OD, [address] [place] [address], [address]. tel:[phone] [facility], [address] [place] [address] [address], [place], [place], [id number], [place] tel:[phone] SEC Be [place] Professional 1 week PO PCIOL (chief complaint) No Information 0 7 Shaggy Perea. [address] [facility], [facility] [place], [address], . tel:[phone] Referring Provider: Miles Vasquez OD, [address] [place] [address], [address]. tel:[phone] [facility], [address] [place] [address] [address], [place], [place], [id number], tel:[phone] SEC Be [place] Professional 1 day CE PO (chief complaint) No Information 7 Jaiden [address]. [address], [address] [place], [address], [place]. tel:[phone] Referring Provider: Miles Vasquez OD, [address] [place] [address], [address]. tel:[phone] [facility], [address] [place] [address] [address], [place], [address], [place] tel:[phone] [place] [address] No Information 7 Jaiden Alatorre. [address], [place], [address], [place]. tel:[phone] Referring Provider: Miles Vasquez OD, [address] [place] [address], [address]. tel:[phone] Office/outpat ient Visit, [facility], [address] [place] [address] [address], [place], [place], [id number], tel:[phone] SEC [place] Professional Cataract evaluation (chief complaint) No Information 7 Jaiden Alatorre. [address], [address], [place], [place], [address], [place]. tel:[phone] Referring Provider: Miles Vasquez OD, [address] [place] [address], [address]. tel:[phone] Office/outpat ient Visit, [facility], [address] [place] [address] [address], [place], [place], [id number], tel:[phone] SEC [place] Professional Cataract evaluation (chief complaint) No Information 7 Jaiden Alatorre. [address] [facility], [address], [place], [place], [address], [place]. tel:[phone] Referring Provider: Miles Vasquez OD, [address] [facility], [place], [address]. tel:[phone] [facility], [address], [place], [place], [id number], [place] tel:[phone] SEC Be [place] Professional No Information 7 Aileen Lozada. [address] [facility], [place], [address], [place]. tel:[phone] Family History Family Member Type Diagnosis Age At Onset Mother Problem (finding) diabetes mellitus type 2 Mother Problem (finding) Retinal disease Payers Payer name Insurance type Covered republican ID Authoriza tion(s) No Information Social History [...] and left eye. Pt states he at [employer] thinks she may have cataracts. 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 Related to Combined forms of age-related cataract of right eye Assessments Type Assessment Date assessment Surgery follow-up examination Isabel Patient Care Teams Name Effective Dates (start - stop) Status Members No Information
--- OUTSIDE RECORDS SUMMARY | 2024-11-07 11:10 | XMS_ITS | Clinical Summary ---
Author Organization [facility] Address [address] [facility] [place] [address] Care Team Providers Care Reclamation Supervisor Name Role Phone Aaron Hudson MD Primary Care Provider + [phone] Allergies No known active allergies Medications gabapentin [...] Encounters Date Type Department Care Team Description 10/27/2024 External Device Data STL ABSTRACTION Provider, Abstract 10/26/2024 External Device Data STL ABSTRACTION Provider, Abstract 10/05/2024 External Device Data STL ABSTRACTION Provider, Abstract 09/14/2024 External Device Data STL ABSTRACTION Provider, Abstract 09/07/2024 External Device Data STL ABSTRACTION Provider, Abstract 09/02/2024 External Device Data STL ABSTRACTION Provider, Abstract 08/31/2024 External Device Data STL ABSTRACTION Provider, Abstract [...] 10:17 AM CDT Height 158.8 cm (5' 2.5) 01/21/2022 10:09 AM CD T Body Mass Index 25.56 01/21/2022 10:09 AM CDT Plan of Treatment Upcoming Encounters Date Type Department Care Team (Late st Contact Info) Description 01/12/2025 10:15 AM CDT Office Visit [facility] Oncology and Hematology - [place] [address] [facility] [address] [place] [address] Phong Lomax MD [address] [facility] [address] [place] [address] Health Maintenance Due Date Last Done Comments DTAP/TDAP/TD VACCINES (1 - Tdap) 1965 Lung Cancer Screening 1996 PNEUMOCOCCAL VACCINE 50+ YEARS (1 of 1 - PCV) 05/09/18 97 ZOSTER VACCINE (1 of 2) 1996 OSTEOPOROSIS SCREENING 2011 RSV VACCINE (60+ or ) (1 - 1-dose 75+ series) 2021 INFLUENZA VACCINE (#1) 2024 Insurance AETNA PPO MCR Care Teams Reclamation Supervisor Relationship Specialty Start Date End Date Aaron Hudson MD [address] [place] [address] PCP - General Internal Medicine 12/04/20
--- OUTSIDE RECORDS SUMMARY | 2024-11-07 11:10 | XMS_ITS | Data Portability ---
Author Organization [facility], [place] Address [address] [place] [address] Care Team Providers Care Facing Grinder Name Role Phone HAILE VELOZ Primary Care Provider [phone] Assessment Encounter Date Assessment Date Assessment LastModified by Organization Details LastModified Time 01/23/2021 01/23/2021 Time spent in visit is a total of 15 mins with at least 50% of visit consisting of counseling and review of plan of care. Additional precautionary measures were taken to minimize potential exposure to the Covid-19 virus during this patient s visit, including available hand lining brusher upon arrive, temperature check and being asked a series of screening questions. All staff wore face coverings during this encounter, as well as provided additional cleaning and sanitizing of all surfaces, including counter-tops, pens, chairs, door handles, light switches, etc, prior to and following the patient s visit. [email or web address] Not available 01/23/2021 16:59:00 06/05/2022 06/05/2022 Annual gynecological exam performed. Patient will come back in a year unless there are new symptoms. Not available 06/05/2022 14:07:21 Plan of Treatment Reminders Order Date Submit Date Provider Last Modified By Organization Details Last Modified Time Details Appointments None recorded. Lab urinalysis, dipstick 2020 021 [email or web address] [place], [address], [place], [address], 11:37:23 urinalysis, dipstick 2020 021 [address], [address], [place], [address], 11:52:57 Referral urogynecolo gist referral - Please call Nataliia and schedule her for an appt. If further information is needed, please contact me at [phone]. Thank you, DESTINEY Munguia 2020 NICK Lopez MD, [address], [place], [address], 2 05:01:00 Procedures None recorded. Surgeries None recorded. Imaging MAMMO, screening, bilateral 2022 023 NICK [place], [address], [address], [place], [address], 3 05:01:31 Medication Orders estradiol 0.01% (0.1 mg/gram) vaginal cream 2020 [place] [facility][id number], [address], [place], [place], [id number], 1 12:25:28 Diflucan 150 mg tablet 2020 021 [address]Capt[address] [id number], [address], [place], [place], [id number], 3 14:07:47 Diflucan 150 mg tablet 2020 021 [place] [address] [facility], [address], [place], [place], [id number], 3 14:07:47 Macrobid 100 mg capsule [address] [place] [address] [facility]236, [address], [place], [place], [id number], 3 14:07:57 Pyridium 100 mg tablet 2020 021 [facility] #[id number], [address], [place], [place], [id number], 14:08:04 Patient TargetsNo targets recorded. Patient InstructionsNo instructions recorded. Reason for Referral Urogynecologist Referral for Urgent desire to urinate Urinary urgency Please call Nataliia and schedule her for an appt. If further information is needed, please contact me at [phone]. Thank you, DESTINEY Munguia Referring Physician: Maddie Mcrae, LOCOMOTIVE PIPE FITTER, Encounter Date: 01/23/2021 Results Created Date Observation Date Name Description Value Unit Range Abnormal Flag Note LastModifiedBy Organization Detail LastModifiedTime 01/09/20 21 01/08/2021 URINA LYSIS , WITH MICRO SCOPI C color, urine Yellow colorl ess, light yellow , yellow , dark yellow , straw Not Available [facility] (Lab) [address], [place], [address], 01/11/2021 23:46:52 01/09/20 21 01/08/2021 URINA LYSIS , WITH MICRO SCOPI C clarity, urine Cloudy Not Available [facility] (Lab) [address], [place], [address], 01/11/2021 23:46:52 01/09/20 21 01/08/2021 URINA LYSIS , WITH MICRO SCOPI C glucose, urine Negati ve mg/dL negati ve Not Available [facility] (Lab) [address] [place], [address], 01/11/2021 23:46:52 01/09/20 21 01/08/2021 URINA LYSIS , WITH MICRO SCOPI C bilirubin, urine Negati ve mg/dL negati ve Not Available [facility] (Lab) [address], [place], [address], 01/11/2021 23:46:52 01/09/20 21 01/08/2021 URINA LYSIS , WITH MICRO SCOPI C ketones, urine Negati ve mg/dL negati ve Not Available [facility] (Lab) [address], [place], [address], 01/11/2021 23:46:52 01/09/20 21 01/08/2021 URINA LYSIS , WITH MICRO SCOPI C pH, urine 6.0 . 5.0-9. 0 Not Available [facility] (Lab) [address], [place], [address], 01/11/2021 23:46:52 01/09/20 21 01/08/2021 URINA LYSIS , WITH MICRO SCOPI C specific gravity, urine 1.016 . 1.001- 1.035 Not Available [facility] (Lab) [address], [place], [address], 01/11/2021 23:46:52 01/09/20 21 01/08/2021 URINA LYSIS , WITH MICRO SCOPI C blood, urine Negati ve negati ve Not Available [facility] (Lab) [address], [place], [address], 01/11/2021 23:46:52 01/09/20 21 01/08/2021 URINA LYSIS , WITH MICRO SCOPI C protein, urine Negati ve mg/dL negati ve Not Available [facility] (Lab) [address], [place], [address], 01/11/2021 23:46:52 01/09/20 21 01/08/2021 URINA LYSIS , WITH MICRO SCOPI C urobilinogen , urine <2.0 mg/dL <2.[address] [facility] (Lab) [address] [place], [address], 01/11/2021 23:46:52 01/09/20 21 01/08/2021 URINA LYSIS , WITH MICRO SCOPI C nitrite, urine Positi ve negati ve abnormal Not Available [facility] (Lab) [address] [place], [address], 01/11/2021 23:46:52 01/09/20 21 01/08/2021 URINA LYSIS , WITH MICRO SCOPI C leukocyte esterase, urine Large negati ve abnormal Not Available [facility] (Lab) [address], [place], [address], 01/11/2021 23:46:52 01/09/20 21 01/08/2021 URINA LYSIS , WITH MICRO SCOPI C WBC, urine TNTC /hpf none, 0-5 abnormal Not Available [facility] (Lab) [address], [place], [address], 01/11/2021 23:46:52 01/09/20 21 01/08/2021 URINA LYSIS , WITH MICRO SCOPI C RBC, urine 10-14 /hpf none, 0-2 abnormal Not Available [facility] (Lab) [address], [place], [address], 01/11/2021 23:46:52 01/09/20 21 01/08/2021 URINA LYSIS , WITH MICRO SCOPI C bacteria, urine Few /hpf none abnormal Not Available [facility] (Lab) [address], [place], [address], 01/11/2021 23:46:52 01/09/20 21 01/08/2021 URINA LYSIS , WITH MICRO SCOPI C squamous epithelial cells, urine Trace /hpf none abnormal Not Available [facility] (Lab) [address], [place], [address], 01/11/2021 23:46:52 01/09/20 21 01/08/2021 URINA LYSIS , WITH MICRO SCOPI C mucus, urine Trace /hpf none, trace, few Not Available [facility] (Lab) [address], [place], [address], 01/11/2021 23:46:52 01/09/20 21 01/08/2021 URINA LYSIS , WITH MICRO SCOPI C WBC clump, urine Presen t /hpf none abnormal Not Available [facility] (Lab) [address], [place], [address], 01/11/2021 23:46:52 01/09/20 21 01/08/2021 CULTU RE: URINE result report SEE RESULT S BELOW abnormal Test: Cultu re: Urine Speci men Sourc e: Urine Voide d Speci men Type: Urine Speci men Date: 2020 2:25 PM Resul t Date: 2020 10:43 PM Resul t Statu s: Final resul t Abnor mal: Yes Resul sabina Lab: [facility] [address] [facility] [address] Tel: CULTU RE ----- ----- ----- --- >100, 000 CFU/m l Citro bacte r freun dii compl ex (Abno rmal) SUSCE PTIBI LITY ----- ----- ----- --- Citro bacte r freun dii compl ex METHO D ARCHANA ----- ----- ----- ----- ----- ---- ----- ----- ----- ----- --- AMIKA JULIANA <=16 ug/mL Susce ptibl e AMPIC ILLIN >16 ug/mL Resis tant AMPIC ILLIN /SULB ACTAM >16 ug/mL Resis tant AZTRE ONAM 16 ug/mL Resis tant CEFAZ SANDIE >16 ug/mL Resis tant CEFEP EMRE <=4 ug/mL Susce ptibl e CEFOX ITIN >16 ug/mL Resis tant CEFTA ZIDIM E >16 ug/mL Resis tant CEFTR IAXON E 32 ug/mL Resis tant CIPRO FLOXA JULIANA <=1 ug/mL Susce ptibl e GENTA MICIN <=4 ug/mL Susce ptibl e LEVOF LOXAC IN <=2 ug/mL Susce ptibl e MEROP ENEM <=1 ug/mL Susce ptibl e NITRO FURAN TOIN <=32 ug/mL Susce ptibl e PIPER ACILL IN/TA ZOBAC HOYT <=16 ug/mL Susce ptibl e TOBRA MYCIN <=4 ug/mL Susce ptibl e TRIME THOPR IM/HERNDON LFAME THOXA ZOLE <=2 ug/mL Susce ptibl e Not Available [facility] (Lab) [address], [place], [address], 01/11/2021 23:46:53 01/09/2001/08/2021 urina lysis , dipst ick Leukocytes ++ Not Available [facility] helen [address], [place], [address], 01/08/2021 11:52:13 01/09/20 21 01/08/2021 urina lysis , dipst ick Nitrite + Not Available [place] [address], [place], [address], 01/08/2021 11:52:13 01/09/20 21 01/08/2021 urina lysis , dipst ick Urobilinogen NEG Not Available [facility] margret [address], [place], [address], 01/08/2021 11:52:13 01/09/20 21 01/08/2021 urina lysis , dipst ick Protein TRACE Not Available [place] [address], [place], [address], 01/08/2021 11:52:13 01/09/20 21 01/08/2021 urina lysis , dipst ick pH 5 Not Available [place] [address], [place], [address], 01/08/2021 11:52:13 01/09/20 21 01/08/2021 urina lysis , dipst ick Blood trace Not Available [place] [address], [place], [address], 01/08/2021 11:52:13 01/09/20 21 01/08/2021 urina lysis , dipst ick Specific Oxford 1.020 Not Available [facility] josse [address], [place], [address], 01/08/2021 11:52:13 01/09/20 21 01/08/2021 urina lysis , dipst ick Ketone NEG Not Available [place] [address], [place], [address], 01/08/2021 11:52:13 01/09/2001/08/2021 urina lysis , dipst ick Bilirubin NEG Not Available [facility] [address], [place], [address], 01/08/2021 11:52:13 01/09/2001/08/2021 urina lysis , dipst ick Glucose NEG Not Available [place] [address], [place], [address], 01/08/2021 11:52:13 01/09/2001/08/2021 urina lysis , dipst ick Appearance CLOUDY Not Available [facility] [address], [place], [address], 01/08/2021 11:52:13 01/09/2001/08/2021 urina lysis , dipst ick Color YELLOW Not Available [place] [address], [place], [address], 01/08/2021 11:52:13 01/24/2001/23/2021 CULTU RE: URINE result report SEE RESULT S BELOW Test: Cultu re: Urine Speci men Sourc e: Urine Voide d Speci men Type: Urine Speci men Date: 01/23 12:13 PM Resul t Date: 01/24 9:39 PM Resul t Statu s: Final resul t Abnor mal: No Resul ting Lab: [facility] [address] [facility] [address] Tel: CULTU RE ----- ----- ----- --- No growt h in 1 day (dete ction level of 10,00 0 colon ies / ml.) Not Available [facility] (Lab) [address], [place], [address], 01/24/2021 22:43:18 01/24/20 21 01/23/2021 urina lysis , dipst ick Leukocytes neg Not Available [facility] [address], [place], [address], 01/23/2021 11:32:28 01/24/2001/23/2021 urina lysis , dipst ick Nitrite neg Not Available [place] [address], [place], [address], 01/23/2021 11:32:28 01/24/20 21 01/23/2021 urina lysis , dipst ick Urobilinogen neg Not Available [facility] margret [address], [place], [address], 01/23/2021 11:32:28 01/24/2001/23/2021 urina lysis , dipst ick Protein neg Not Available [place] [address], [place], [address], 01/23/2021 11:32:28 01/24/20 21 01/23/2021 urina lysis , dipst ick pH 5 Not Available [place] [address], [place], [address], 01/23/2021 11:32:28 01/24/20 21 01/23/2021 urina lysis , dipst ick Specific Oxford 1.020 Not Available Adelaida loaiza [address], [place], [address], 01/23/2021 11:32:28 01/24/2001/23/2021 urina lysis , dipst ick Ketone neg Not Available [place] [address], [place], [address], 01/23/2021 11:32:28 01/24/2001/23/2021 urina lysis , dipst ick Bilirubin neg Not Available [facility] [address], [place], [address], 01/23/2021 11:32:28 01/24/2001/23/2021 urina lysis , dipst ick Glucose neg Not Available [place] [address], [place], [address], 01/23/2021 11:32:28 01/24/2001/23/2021 urina lysis , dipst ick Appearance clear Not Available [facility] [address], [place], [address], 01/23/2021 11:32:28 01/24/2001/23/2021 urina lysis , dipst ick Color yellow Not Available [place] [address], [place], [address], 01/23/2021 11:32:28 Result Notes None recorded. Problems Name Problem SNOMED Code Status Onset Date Resolution Date Notes Provider Name and Address Organization Details Recorded Time Adult health examinat ion Completed 201401/08/2021 ROUTINE MEDICAL EXAM;Romel rded Elsewhere : No Locati on: [facility] So urce: EHR Chron ic: N Practic e ID: 0001 Bill able Time: 11:00:00 AM Milena chacon [place] - [facility] 11:16:23 Speciali zed medical examinat ion Completed 201401/08/2021 Gynecolog ical Examinati on;Record ed Elsewhere : No Locati on: [facility] So urce: EHR Chron ic: N Practic e ID: 0001 Bill able Time: 11:00:00 AM Milena Kuo [facility] 11:16:33 Screenin g for malignan t neoplasm of rectum Completed 201401/08/2021 Screening for malignant neoplasms of the rectum;Re corded Elsewhere : No Locati on: [facility] So urce: EHR Chron ic: N Practic e ID: 0001 Bill able Time: 11:00:00 AM Milena [facility] 11:16:28 Screenin g for malignan t neoplasm of cervix Completed 201401/08/2021 Pap Smear;Pra ctice ID: [id number] Milena [facility] 11:16:27 Microsco pic hematuri a [id number] Completed 201401/08/2021 MICROSCOP IC HEMATURIA ;Recorded Elsewhere : No Locati on: [facility] So urce: EHR Chron ic: N Practic e ID: 0001 Bill able Time: 09:15:00 AM Milena [facility] 11:16:25 Vaginiti s and vulvovag initis Completed 201401/08/2021 Vulvitis; Recorded Elsewhere : No Locati on: [facility] So urce: EHR Chron ic: N Practic e ID: 0001 Bill able Time: 09:15:00 AM Milnea [facility] 11:16:[address] Concept Completed 201701/08/2021 Encntr for general adult medical exam w/o abnormal findings; Recorded Elsewhere : No Locati on: [facility] So urce: EHR Chron ic: N Practic e ID: 0001 Bill able Time: 11:00:00 AM Milena Kuo [facility] 11:16:[address] Concept Completed 201701/08/2021 Encntr for client representative exam (general) (routine) w/o abn findings; Recorded Elsewhere : No Locati on: [facility] So urce: EHR Chron ic: N Practic e ID: 0001 Bill able Time: 11:00:00 AM Milena Kuo [facility] 11:16:32 Urinary tract infectio us disease [id number] Completed 201901/08/2021 UTI;Recor ded Elsewhere : No Locati on: [facility] So urce: EHR Chron ic: N Practic e ID: 0001 Bill able Time: 09:00:00 AM Milena [facility] 11:16:35 Acute vaginiti s [id number] Completed 201901/08/2021 Vaginitis ;Recorded Elsewhere : No Locati on: [facility] So urce: EHR Chron ic: N Practic e ID: 0001 Bill able Time: 09:00:00 AM Milena [facility] 11:16:22 Problem Notes None recorded. Procedures Surgical History Date Name Laterality Status Provider Name and Address Organization Details Recorded Time 04/14/19 21 resection of intestine for interposition completed Maddie Mcrae SAMANTHA- [address], [place], [address], [facility] 01/23/2021 12:16:17 01/14/20 18 Date of Last Pap Smear completed [facility] 01/08/2021 11:19:54 Imaging Results None recorded. Procedure Notes None recorded. Medical Equipment None Reported. Allergies No known drug allergies Medications Name Sig Start Date Stop Date Status Note LastModified by Organization Details LastModified Time gabapenti n 400 mg capsule take 1 capsule by oral route 3 times every day 02/22 /2023 completed Prescrib ed Elsewher e: Yes Loca tion: Patience salvador [facility] odify By: ravin Modesto priscillaunter DateTime : 01/14/20 18 11:00:00 AM Not Available Not Available Not Available Pyridium 100 mg tablet Take 1 tablet twice a day by oral route for 7 days. 06/05 completed Not Available Not Available Not Available clobetaso l 0.05 % topical cream apply by topical route every day a thin layer to the affected area(s) 01/13 completed Prescrib ed Elsewher e: No Locat ion: Patience salvador [facility] odify By: ravin Modesto priscillaunter DateTime : 07/12/19 15 11:00:00 AM Not Available Not Available Not Available Diflucan 150 mg tablet take 1 tablet by oral route once 06/05 completed Not Available Not Available Not Available ciproflox acin 500 mg tablet TAKE 1 TABLET BY MOUTH TWICE DAILY 06/05 completed Not Available Not Available Not Available Flagyl 500 mg tablet take 1 tablet by oral route every 12 hours 01/08 completed Prescrib ed Elsewher e: No Locat ion: Patience salvador [facility] odify By: krissy barron DateTime : 05/21/19 10:47:55 AM Not Available Not Available Not Available simvastat in 5 mg tablet take 1 tablet by oral route every day in the evening 06/05 completed Prescrib ed Elsewher e: Yes Loca tion: Patience [facility] odify By: adriana matamoros DateTime : 07/12/19 15 11:00:00 AM Not Available Not Available Not Available simvastat in 20 mg tablet TAKE 1 TABLET BY MOUTH EVERY EVENING active Not Available Not Available No t Available vancomyci n 250 mg capsule TAKE 1 CAPSULE BY MOUTH EVERY 6 HOURS FOR 10 DAYS 06/05 completed Not Available Not Available Not Available aspirin 81 mg chewable tablet chew 1 tablet by oral route every day 05/18 completed Prescrib ed Elsewher e: Yes Loca tion: Patience [facility] odify By: cody matamoros DateTime : 07/12/19 15 11:00:00 AM Not Available Not Available Not Available gabapenti n 100 mg capsule TAKE 1 CAPSULE BY MOUTH THREE TIMES DAILY active Not Available Not Available No t Available estradiol 0.01% (0.1 mg/gram) vaginal cream Insert 1gm per vagina nightly x 14 days, then, 1 insert 2x/wk for mainchioa nce. active Not Available Not Available No t Available multivita min capsule take 1 capsule by oral route every day 01/13 completed Prescrib ed Elsewher e: Yes Loca tion: Adelaida modesto [facility] odify By: ravin wellsunter DateTime : 07/12/19 15 11:00:00 AM Not Available Not Available Not Available Bactrim DS 800 mg-160 mg tablet Take 1 tablet every 12 hours by oral route for 5 days. 01/23 completed Not Available Not Available Not Available nitrofura ntoin monohydra te/macroc rystals 100 mg capsule TAKE 1 CAPSULE BY MOUTH TWICE DAILY FOR SYMPTOMS OR UTI 06/05 completed Not Available Not Available Not Available Calcio Tayler 500 mg tablet 01/13 completed Prescrib ed Elsewher e: Yes Loca tion: [facility] odify By: ravin Salvador ncounter DateTime : 07/12/19 15 11:00:00 AM Not Available Not Available Not Available magnesium active Not Available Not Tanya ilable Not Available Fish Oil active Not Available Not Avai lable Not Available fiber active Not Available Not Availa ble Not Available Vitamin D3 10 mcg (400 unit) capsule active Prescrib ed Elsewher e: Yes [facility] By: cody Ramires ter DateTime : 05/18/19 09:00:00 AM Not Available Not Available Not Available peg 3350-elec trolytes 236 gram-22.7 4 gram-6.74 gram-5.86 gram solution TAKE 240 ML BY MOUTH EVERY 10 MINUTES DIRECTED 06/05 completed Not Available Not Available Not Available B-12 Plus 5,000 mcg-100 mcg sublingua l tablet 05/18 completed Prescrib ed Elsewher e: Yes [facility]oca [facility] By: bcyoel matamoros DateTime : 01/14/20 18 11:00:00 AM Not Available Not Available Not Available D3-2000 50 mcg (2,000 unit) capsule 05/18 completed Prescrib ed Elsewher e: Yes [facility]oca [facility] od[facility] By: cody matamoros DateTime : 01/14/20 18 11:00:00 AM Not Available Not Available Not Available Fish Oil 100 mg-160 mg-1,000 mg capsule 01/13 completed Prescrib ed Elsewher e: Yes Loca tion: [facility] odify By: ravin kaurer DateTime : 07/12/19 15 11:00:00 AM Not Available Not Available Not Available Vitals Date Recorded Systolic And Diastolic Provider Name and Address Organization Details Last Updated DateTime 06/05/2022 130/79 mm[Hg] Maddie Mcrae, [facility]- [address], [place], [address], [facility] 06/05/2022 14:35:52 Date Recorded Body height Body mass index (BMI) Body weight Provider Name and Address Organization Details Last Updated DateTime 06/05/2022 157.48 cm 28.1 kg/m2 86412.07 g Milena Rosas [facility] 06/05/2022 14:07:36 Date Recorded Body weight Systolic And Diastolic Provider Name and Address Organization Details Last Updated DateTime 01/08/2021 08044.59 g 138/74 mm[Hg] Milena Kuo [facility] 01/08/2021 11:42:58 Date Recorded Body weight Systolic And Diastolic Provider Name and Address Organization Details Last Updated DateTime 01/23/2021 20645.59 g 126/78 mm[Hg] Milena Kuo [facility] 01/23/2021 11:27:30 Social History Question Answer Notes LastModified by Organizat ion Details LastModified Time Tobacco Smoking Status Former Smoker Milena chacon [facility] 01/08/2021 11:18:16 Are You Blind Or Do You Have Difficulty Seeing? No Information not available 01/08/2021 What Is Your Level Of Caffeine Consumption? Occasional Information not available 01/08/2021 Are You Deaf Or Do You Have Serious Difficulty Hearing? No Information not available 01/08/2021 What Type Of Diet Are You Following? REGULAR Information not available 01/08/2021 Do You Use Your Seat Belt Or Car Seat Routinely? Yes Information not available 01/08/2021 Do You Have Smoke And Carbon Monoxide Detectors In Your Home? Yes Information not available 01/08/2021 Do You Use Sunscreen Routinely? Yes Information not available 01/08/2021 Do You Have Difficulty Walking Or Climbing Stairs? No Information not available 06/05/2022 Sex: Unknown Functional Status Question Answer Note LastModified by Organizat ion Details LastModified Time Do you use any illicit or recreational drugs? No Information not available 01/08/2021 What is your level of alcohol consumption? None Information not available 01/08/2021 Are you able to walk? YESWOREST Information not available 01/08/2021 Are you able to care for yourself independently? Yes Information not available 06/05/2022 Do you have difficulty dressing, bathing, grooming, or toileting? No Information not available 06/05/2022 What is your exercise level? Occasional Information not available 01/08/2021 Mental Status Question Answer Note LastModified by Organization D etails LastModified Time Do you feel stressed (tense, restless, nervous, or anxious, or unable to sleep at night)? [id number] Information not available 01/08/2021 Family History Relationship Description Onset Age of this Age Resolved Age Notes LastModified by Organization Details LastModified Time Father Myocardial infarction Not available 01/08 11:18:23 Mother Diabetes mellitus Not available 2020 11:18:29 Medical History Condition Response Blood Transfusion N Breast Cancer N Thyroid Problems N Kidney or Bladder Problems Y GI Problems Y Defects or Inherited Disease N Breast Problem N Gestational Diabetes N Anemia N Hematologic disorders N Anesthesia Complications N Art (IVF or FET) N History of STI N Deep Vein Thrombosis N Polycystic ovary syndrome N Psychiatric Illness N Ovarian Cancer N Diabetes N Anxiety Disorder N Pulmonary (TB, Asthma) N Autoimmune disease N Hepatitis/Liver Disease N Arthritis Y Polyps N Infertility N History of abnormal pap N Cancer Y Stroke N Asthma N Neurologic/Epilepsy N High Cholesterol Y Headaches N Pre-Eclampsia N Hypertension N Osteoporosis Y Thrombophilias N Kidney Disease N Gynecological History Statement/Question Response If Post Menopausal, Age at Menopause 42 Sexually Active? Y STIs/STDs N Menses Monthly N Age of first menstrual cycle 11 HPV Vaccine N Date of Last Pap Smear 01/13/2018 Sexual Problems? N Current Control Method Hysterectom y LMP Unknown Obstetrics History GPAL:G 3 P 0 0 0 3 Type Value Living 3 Total 3 Past Encounters Encounter ID Performer Location Encounter Start Date Encounter Closed Date Diagnosis/Indication Diagnosis SNOMED-CT Code Diagnosis ICD10 Code Diagnosis Note [id number] Maddei Mcrae [facility] [address] [address] 01/08/2021 11:20:26 01/08/2021 13:54:34 Urinary symptoms 803542125 R39.9 Urinary tr act infectious disease 84809977 N39.0 Urine dip suspect UTI presentWe agreed to send cx'sTreat macrobid/a zo for longer period of time1-difl ucan to prevent yeast Will call with resultsIf this issue still present will consider urogyn for further evaluation Time spent in visit is a total of 15 mins with at least 50% of visit consisting of counseling and review of plan of care..Dio tional precaution karla measures were taken to minimize potential exposure to the Covid-19 virus during this patient s visit, including available hand lining brusher upon arrive, temperatur e check and being asked a series of screening questions. All staff wore face coverings during this encounter, as well as provided additional cleaning and sanitizing of all surfaces, including countertop s, pens, chairs, door handles, light switches, etc, prior to and following the patient s visit. 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 Trial of vaginal estrogen for atrophy & postmenopa usal effects.Isidra flaquito her issues are not completely tied to this, however, so we agreed to refer to Urogyn for unexplaine d urinary urgency/fr equency or frequent UTI. Her Urine cx in 12/2020 was + & was treated with macrobid.S he recently took Bactrim 01/21 for UTI like sx's again.Exam today is questionab le, neg bladder pain; lots of vag irritation with atrophy; Will send urine to ensure neg as a precaution . Counseled on medication R/B's, Most common side effects, & use. All questions were answered to patient satisfacti on. Time spent in visit is a total of 15 mins with at least 50% of visit consisting of counseling and review of plan of care.Addit ional precaution karla measures were taken to minimize potential exposure to the Covid-19 virus during this patient s visit, including available hand lining brusher upon arrive, temperatur e check and being asked a series of screening questions. All staff wore face coverings during this encounter, as well as provided additional cleaning and sanitizing of all surfaces, including countertop s, pens, chairs, door handles, light switches, etc, prior to and following the patient s visit. Urgent shaji farrukh to urinate [id number] R39.15 Refer for possible urinary issues. [id number] Maddie Mcrae [facility] [address] [address] 06/05/2022 13:49:52 06/05/2022 14:43:56 Gynecologic examination [id number] Z01.419 Take Calcium with Vitamin D 12-1500mg daily. Do monthly self breast exams. It is advised to get annual flu shot in the fall and she could obtain at [facility] or [facility]. If you haven't received the Tdap vaccine in the last 10 years you should obtain one as well. Have mammogram yearly, bone density every 2-3 years and colonoscop y every 5-10 years depending on findings and history. Engage in daily exercise of low impact aerobic exercise 45-60 minutes 4-5 times weekly. Avoid tobacco and illicit drugs as well as using moderation with alcohol intake less than 1-2 8 oz beverages daily. This lifestyle behavior pattern will lead to less health conditions and longer life span. If BMI greater than 25 weight watchers or dietary consult advised. Questions have been answered. Patient appears to understand instructio ns, but if you have any further questions call or respond to this email Pap/hpv D/C USPSTF recommends against screening for cervical cancer in women older than 65yo, those who've had a hysterecto my for non-cancer indication s, & who have had adequate prior screening & are not otherwise at high risk for cervical cancer. STD Screen declinedGe netic Screen discussedC olon Screen UTD PCPDexa Screen PCPRoutine Labs PCPMammo [id number] rs or can go to PCP unless has an client representative issue. Screening mammography [id number] Z12.31 Health Concerns Section Related Observation LastModified by Organization Detai ls LastModified Time None Recorded Concern Status LastModified by Organization Details LastModified Time None Recorded Advance Directives Directive None Recorded Payers Insurance Date Sequence Insurance Name Policy Number Policy Bailey Covered Member ID Bailey Member ID Guarantor Name 06/03/2022 1 [employer] (MEDICARE REPLACEMENT /ADVANTAGE - PPO) [id number] Nataliia Arteaga [id number] Nataliia Arteaga 06/05/2022 1 [employer] (MEDICARE REPLACEMENT /ADVANTAGE - PPO) [id number] Nataliia Arteaga [id number] Nataliia Arteaga Notes Date Note Type Note Provider Name and Address Organization Details Recorded Time 1 text/html ROS as noted in the HPI Here today for urethral/bladder irriationWent to Urgent care 12/21/2020.Was told had a UTIWas treated with Cipro x 5 daysFeels her sx's never fully went awayBiggest complaint is a pinching or tugging sensation at the end of urination.Maybe some urinary urgency still present Treated herself with AZO & OTC vag itch cream in case she had vag infection.No sx's of vag infection todayAzo helped but only took it 2-3 days. Not regularly SA (not for last 7mos)Hx of recent colon cancer surgery 10/2020Hx of recent CT with contrast. .[employer] this made her bladder feel worse.Neg GI issuesNeg vag infection sx'sNeg N/V/F/D/C.Neg flank pain/pelvic pain/abd pain. Maddie Mcrae [facility] [address], [place], [address], [facility] 01/08/2021 13:48:59 1 text/html ROS as noted in the HPI Here today for return of UTI like sx's.Started bactrim 01/21/2021 sx's of urinary urgency, frequency & pelvic pressure returned.Wanted to check in here as previously discussed.Neg abd/flank todaySome pelvic irritation but discomfort (dysuria) rated 1-2 out of 10.Neg UUI/SUINeg Vag d/c, itching or burningNeg sexually active.Neg GI issues [facility] [address], [place], [address], [facility] 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 For vaginal bleeding, patient reportshistory of menopause having occurredandno history of post menopausal bleeding. For urinary symptoms, patient reportsno hematuria,no incontinence,no nocturia, andno urinary frequency. For vulva, patient reportsno genital lesionandno vulvar atrophy. For vagina, patient reportsnormal vaginal dischargeandno vaginal atrophy.Breast symptomsFor breast, patient reportsno breast lump,no nipple discharge, andno breast pain.Psychological symptomsFor sexual complaints, patient reportsno sexual complaints. For psychological symptoms, patient reportsno depressionandno anxiety.Preventative measuresFor preventive measures, patient reportsencourage regular mammograms starting age 40,encourage self breast examination,encourage regular exercise,encourage no tobacco use,needs to schedule mammogram, andhistory of recent colonoscopy. Maddie Mcrae [facility]- [address], [place], [address], [facility] 06/05/2022 14:43:28 OBGyn Episode Ob Episode Information Episode Created Date Number of Fetuses Patient Bloodtype Patient rh Status Prepregnancy Weight lbs Domestic Partner Domestic Partner Phone Father Name Grab Operator Status 01/09/20 21 1 CLOSED Fetus Data First Name Last Name Admitted to NICU Weight (g) Sex Living Outcome Pediatric Complications Fetus ID Race Codes Race Delivery Type M Full Term [id number] Repeat Franklyn Calculation Initial Franklyn Date Initial Exam Date Initial Exam Provider Initial Ultrasound Date Last Menstrual Period Date Ultra Sound Weeks Gestation 0 Eighteen To Twenty Week Franklyn Update Ultra Sound Date Fundal Height At Umbil Quickening Date Ultra Sound Latest Weeks Gestation Final Franklyn Confirmed By Final Franklyn Confirmed Date Final Franklyn Date Ultra Sound Latest Days Gestation 0 0 Menstrual History Last Menstrual Date Menses Monthly On Bcp Conception Prior Menses Frequency Hcg Plus Date Menarche Onset Age Delivery Information Delivery Date Delivery Type Labor Anesthesia Weeks Gestation Incision Type Labor Labor Length Hrs Delivered By Post Complications Tubal Sterilization Discharge Date Comments 2 Discharge Information Feeding Method Contraceptive Method Maternal HG B and HCT Levels Ob Episode Information Episode Created Date Number of Fetuses Patient Bloodtype Patient rh Status Prepregnancy Weight lbs Domestic Partner Domestic Partner Phone Father Name Grab Operator Status 01/09/20 21 1 CLOSED Fetus Data First Name Last Name Admitted to NICU Weight (g) Sex Living Outcome Pediatric Complications Fetus ID Race Codes Race Delivery Type F Full Term [id number] Repeat Franklyn Calculation Initial Franklyn Date Initial Exam Date Initial Exam Provider Initial Ultrasound Date Last Menstrual Period Date Ultra Sound Weeks Gestation 0 Eighteen To Twenty Week Franklyn Update Ultra Sound Date Fundal Height At Umbil Quickening Date Ultra Sound Latest Weeks Gestation Final Franklyn Confirmed By Final Franklyn Confirmed Date Final Franklyn Date Ultra Sound Latest Days Gestation 0 0 Menstrual History Last Menstrual Date Menses Monthly On Bcp Conception Prior Menses Frequency Hcg Plus Date Menarche Onset Age Delivery Information Delivery Date Delivery Type Labor Anesthesia Weeks Gestation Incision Type Labor Labor Length Hrs Delivered By Post Complications Tubal Sterilization Discharge Date Comments 8 Discharge Information Feeding Method Contraceptive Method Maternal HG B and HCT Levels Ob Episode Information Episode Created Date Number of Fetuses Patient Bloodtype Patient rh Status Prepregnancy Weight lbs Domestic Partner Domestic Partner Phone Father Name Grab Operator Status 01/09/20 21 1 CLOSED Fetus Data First Name Last Name Admitted to NICU Weight (g) Sex Living Outcome Pediatric Complications Fetus ID Race Codes Race Delivery Type F Full Term [id number] Primary Franklyn Calculation Initial Franklyn Date Initial Exam Date Initial Exam Provider Initial Ultrasound Date Last Menstrual Period Date Ultra Sound Weeks Gestation 0 Eighteen To Twenty Week Franklyn Update Ultra Sound Date Fundal Height At Umbil Quickening Date Ultra Sound Latest Weeks Gestation Final Franklyn Confirmed By Final Franklyn Confirmed Date Final Franklyn Date Ultra Sound Latest Days Gestation 0 0 Menstrual History Last Menstrual Date Menses Monthly On Bcp Conception Prior Menses Frequency Hcg Plus Date Menarche Onset Age Delivery Information Delivery Date Delivery Type Labor Anesthesia Weeks Gestation Incision Type Labor Labor Length Hrs Delivered By Post Complications Tubal Sterilization Discharge Date Comments 0 Discharge Information Feeding Method Contraceptive Method Maternal HG B and HCT Levels
--- OUTSIDE RECORDS SUMMARY | 2024-11-07 11:10 | XMS_ITS | Clinical Summary ---
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
--- OUTSIDE RECORDS SUMMARY | 2024-11-07 11:10 | XMS_ITS | Clinical Summary ---
Author Organization [facility] Address [facility] [place] [address] Care Team Providers Care Fountain Worker Name Role Phone Unavailable Primary Care Provider [...] Td Vaccines ( 1 - Tdap) 1965 Pneumococcal Vaccine: 50+ Ye ars (1 of 1 - PCV) 1996 Zoster Vaccines (1 of 2) 1996 Dexa Scan (General) 2011 RSV Immunization or 60+ Years (1 - 1-dose 75+ series) 2021 COVID-19 Vaccine (2023-2 5 season) 2023 Meningococcal B Vaccine Aged Out No l onger eligible based on patient's age to complete this topic Meningococcal Vaccine Aged Out No kyung marni eligible based on patient's age to complete this topic RSV Immunizations Under 20 Months Aged Out No longer eligible based on patient's age to complete this topic
--- OUTSIDE RECORDS SUMMARY | 2024-11-07 11:13 | XMS_ITS | Continuity of Care Document ---
Author Organization [facility] Address [address] [place] [address] Phone Care Team Providers Care Fishery Division Chief Name Role Phone Landry Hwang MD Unavailable [...] Diagnoses Date Provider Providers Copied on Encounter [facility], [address] [place] [address] [address], [place], [place], [id number], [place] tel:[phone] SEC Be [place] Professional 1 mo CE PO (chief complaint) Surgery follow-up examination Jaiden Alatorre. [address], [facility] [place], [address], [place]. tel:[phone] Referring Provider: Miles Vasquez OD, [address] [place] [address], [address]. tel:[phone] [facility], [address], [place], [place], [id number], tel:[phone] SEC Be [place] Professional Post-Op (chief complaint) Surgery follow-up examination 7 Shaggy Perea. [address], [address], [employer], [place], [address], [place]. tel:[phone] Referring Provider: Miles Vasquez OD, [address] [place] [address], [address]. tel:[phone] [facility], [address], [place], [place], [address], [place] tel:[phone] SEC Be [place] Professional 1 DAY PO IOL OS (chief complaint) No Information 7 Jaiden Alatorre. [address], [address], [employer], [place], [address], [place]. tel:[phone] Referring Provider: Miles Vasquez OD, [address] [place] [address], [address]. tel:[phone] [facility], [address], [place], [place], [address], [place] [phone] [facility] No Information Sep-2 7 Jaiden Alatorre. [address] [facility] [place] [place], [address], [place]. tel:[phone] Referring Provider: Miles Vasquez OD, [address] [place] [address], [address]. tel:[phone] [facility], [address] [place] [address] [address], [place], [place], [address], [place] tel:[phone] SEC [place] Magalys [place] No Information 7 Jaiden Alatorre. [address] [facility], [facility] [place], [place], [address], [place]. tel:[phone] [facility], [address] [place] [address] [address], [place], [place], [address], [place] tel:[phone] SEC eB LARSON Professional Post-Op (chief complaint) No Information Sep-0 7 Gallagherleonie Lozada. [address] [place], [address], [place]. tel:[phone] Referring Provider: Miles Vasquez OD, [address] [place] [address], [address]. tel:[phone] [facility], [address] [place] [address] [address], [place], [place], [address], [place] tel:[phone] SEC Be LAR[place] Professional 1 week PO PCIOL (chief complaint) No Information 0 7 Shaggy Perea. [address] [facility], [facility] [place], [place], [address], . tel:[phone] Referring Provider: Miles Vasquez OD, [address] [place] [address], [address]. tel:[phone] [facility], [address] [place] [address] [address], [place], [place], [address], tel:[phone] SEC Be [place] Professional 1 day CE PO (chief complaint) No Information 7 Jaiden Alatorre. [address], [address] [place], [address], [place]. tel:[phone] Referring Provider: Miles Vasquez OD, [address] [place] [address], [address]. tel:[phone] [facility], [address] [place] [address] [address], [place], [address], [place] tel:[phone] [place] [address] No Information 7 Jaiden Alatorre. [address], [place], [address], [place]. tel:[phone] Referring Provider: Miles Vasquez OD, [address] [place] [address], [address]. tel:[phone] Office/outpat ient Visit, [facility], [address] [place] [address] [address], [place], [place], [address], tel:[phone] SEC [place] Professional Cataract evaluation (chief complaint) No Information 7 Jaiden Alatorre. [address], [address], [employer], [place], [address], [place]. tel:[phone] Referring Provider: Miles Vasquez OD, [address] [place] [address], [address]. tel:[phone] Office/outpat ient Visit, [facility], [address] [place] [address] [address], [place], [place], [address], tel:[phone] SEC [place] Professional Cataract evaluation (chief complaint) No Information 7 Jaiden Alatorre. [address] [facility], [address], [employer], [place], [address], [place]. tel:[phone] Referring Provider: Miles Vasquez OD, [address] [facility], [place], [address]. tel:[phone] [facility], [address], [place], [place], [address], [place] tel:[phone] SEC Be LAR[place] Professional No Information 7 Aileen Lozada. [address] [facility], [place], [address], [place]. tel:[phone] Family History Family Member Type Diagnosis Age [...] and left eye. Pt states he at [facility] thinks she may have cataracts. Pt states [...]
--- NOTE | 2024-11-07 11:15 | ED_ITS ---
HPI - Female Genitourinary General Chief complaint: Urogenital-Female Stated complaint: ?UTI Time Seen by Provider: 11/07/24 11:11 Patient presents to Express Care with complaints of burning with urination, urinary urgency, and bladder pressure that began a few days ago. Patient noted increasing water intake in eating dried cranberries with some relief of symptoms but noted symptoms still present today and that she should be checked. Denies back pain, blood in urine, fever, chills, body aches. Related Data Home Medications ?Medication ?Instructions ?Recorded ?Confirmed ?Last Taken ?Type cholecalciferol (vitamin D3) 25 25 mcg PO DAILY 04/08/19 06/15/24 11/04/20 History mcg (1,000 unit) capsule omega 9-pzh-rgx-fish oil 1,000 mg 2 cap PO DAILY 04/08/19 06/15/24 11/04/20 History (120 mg-180 mg) capsule cyanocobalamin (vitamin B-12) 500 500 mcg PO DAILY 02/11/24 06/15/24 Unknown History mcg tablet,extended release magnesium oxide 500 mg capsule 500 mg PO DAILY 02/11/24 06/15/24 Unknown History pyridoxine (vitamin B6) 100 mg 100 mg PO DAILY 02/11/24 06/15/24 Unknown History tablet Allergies Allergy/AdvReac Type Severity Reaction Status Date / Time No Known Allergies Allergy Verified 11/07/24 11:22 Review of Systems Constitutional: Constitutional: Reports as per HPI, Denies chills and Denies fatigue Eyes: Eyes: Reports no additional eye complaints Cardiovascular: Cardiovascular: Reports no additional cardiovascular complaints Respiratory: Respiratory: Reports no additional respiratory complaints Gastrointestinal: Gastrointestinal: Reports as per HPI, Denies diarrhea, Denies nausea and Denies vomiting Genitourinary: Genitourinary: Reports as per HPI, Denies hematuria, Reports nocturia, Reports dysuria, Denies pelvic pain, Denies flank pain and Denies urinary incontinence Musculoskeletal: Musculoskeletal: Reports no additional musculoskeletal complaints Neurologic: Reports system reviewed and no additional complaints, except as documented Psychiatric: Psychiatric: Reports no additional psychiatric complaints Endocrine: Endocrine: Reports no additional endocrine complaints Hematologic/Lymphatic: Hematologic/Lymphatic: Reports no additional hematologic/lymphatic complaints Allergic/Immunologic: Allergic/Immunologic: Reports no additional allergic/immunologic complaints PMFSH Past Medical History Medical History Chronic diarrhea Hyperlipidemia Post-menopause Vitamin D deficiency Encounter for surgical aftercare following surgery on the digestive system Postoperative nausea (~10/2020) Back pain at L4-L5 level Multinodular goiter Nicotine dependence, unspecified, uncomplicated Numbness and tingling of both legs Other specified soft tissue disorders PVD (peripheral vascular disease) Paresthesia of skin Personal history of nicotine dependence Primary generalized (osteo)arthritis Shoulder joint painful on movement Vitamin D deficiency disease Surgical History Surgical History H/O hemicolectomy hand assisted laparoscopic right hemicolectomy c mobilization of hepatic flexure, lysis of adhesion of approximately 30 minutes History of hysterectomy H/O cataract extraction H/O section x 3 Family History Family History Father Family history of kidney disease Acute myocardial infarction Mother Family history of diabetes mellitus in first degree relative Sibling Acute myocardial infarction Social History Social History Smoking packs per day: 1 Smoking cigarettes per day: 20.0 Years smoked: 50 Smoking pack-years: 50.00 Smoking status: Former smoker Tobacco type: cigarettes Second hand tobacco smoke exposure: Yes Smoking end date: 08/11/18 Alcohol intake: former 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 Substance use: never Substance use type: does not use Current Housing: Decline to Answer Concerned About Future Housing: Decline to Answer Difficulty Paying Gas/Electric Bills: Decline to Answer Difficulty Paying for Meds: Decline to Answer Currently Unemployed: Decline to Answer Education: Decline to Answer Difficulty w/ Childcare or Family Care: Decline to Answer Living arrangements: with family Additional living arrangements comments: Occupation/Education: retired Spiritual care concerns: No Exam Const: General: healthy appearing and no acute distress Nutritional Appearance: well nourished Orientation/consciousness: patient oriented x3 Limitations: no limitations Resp: Effort & Inspection: normal respiratory effort Auscultation: clear to auscultation bilaterally Cardio: Rate: regular rate Rhythm: regular rhythm GI: GI Palp: Yes Soft to palpation, No Tenderness to palpation present (GI), No Guarding due to palpation present (GI), No Rigid due to palpation and No Rebound tenderness present Auscultation: normal bowel sounds : General: Yes bladder normal to palpation, No Bladder palpation abnormal and No no CVA tenderness Back/Spine/Pelvis: Back: no CVA tenderness Skin: General skin exam: normal color Rashes: no rashes Wounds: no wounds Neuro: General: patient oriented x3 Speech: normal speech Gait exam (Neuro): Normal gait present Psych: Appearance: grossly normal Mental Status: mental status grossly normal Affect: normal affect Attitude: cooperative Course Course Level of Care: Express Care Visit MDM - Female Genitourinary MDM Narrative Medical decision making narrative: Discharge instructions reviewed with patient, as well as provided in writing per nursing staff. The instructions also include specific and strict return/GO TO THE ER as well as f/u information. All questions have been answered, and the patient deny any further questions with discharge and discharge plan. Differential Diagnosis Differential diagnosis: Likely urinary tract infection, bacterial vaginosis, cervicitis, vaginitis and cystitis Medical Records Attestation: I reviewed the patient's medical records. Lab Data Attestation: I reviewed the patient's lab results. Discharge Plan Discharge Clinical Impression: Cystitis Patient Disposition: Home Condition: Stable Instructions: Antibiotic Form, Dysuria (ED), Urinary Tract Infection in Older Adults (ED) Additional Instructions: We will send a urine culture off to the lab; if the culture identifies an organism that the prescribed antibiotic will not treat, you will receive a phone call from an urgent care staff member and an appropriate antibiotic will be prescribed. -Your symptoms should begin to improve within a day of starting antibiotics. But you should finish all the antibiotic pills you get. Otherwise your infection might come back. -Also recommend: drink more fluid. It might help flush out germs, and it does no harm -Tylenol/ibuprofen as needed for pain -Follow-up with your primary care provider for urine recheck OR if your symptoms persist, change or worsen significantly before you can contact your personal physician then please, without delay, go to the emergency department for further evaluation. Patient Language: Amharic Prescriptions: New nitrofurantoin monohyd/m-cryst [Macrobid] 100 mg capsule 100 mg PO Q12H 5 Days Qty: 10 0RF Rx Instructions: must administer with a meal/food No Action pyridoxine (vitamin B6) 100 mg tablet 100 mg PO DAILY cyanocobalamin (vitamin B-12) 500 mcg tablet extended release 500 mcg PO DAILY magnesium oxide 500 mg capsule 500 mg PO DAILY omega 3-adu-hbz-fish oil 1,000 mg (120 mg-180 mg) capsule 2 cap PO DAILY cholecalciferol (vitamin D3) 25 mcg (1,000 unit) capsule 25 mcg PO DAILY gabapentin 100 mg capsule See Rx Instructions .ROUTE .COMPLEX Qty: 270 2RF Dose Instruction: TAKE 1 CAPSULE BY MOUTH THREE TIMES DAILY Rx Instructions: TAKE 1 CAPSULE BY MOUTH THREE TIMES DAILY simvastatin 5 mg tablet See Rx Instructions .ROUTE .COMPLEX Qty: 90 2RF Dose Instruction: TAKE 1 TABLET BY MOUTH EVERY DAY IN THE EVENING Rx Instructions: TAKE 1 TABLET BY MOUTH EVERY DAY IN THE EVENING Follow-up/Referrals: Aaron Hudson MD [Primary Care Provider] - Time of Disposition: 11:36
[2024-11-07 11:16] VITALS: BP 123/77; PULSE 91; RESP 16; TEMP 36.5; O2SAT 100
[2024-11-07 11:31] LABS: EDUAAPPEAR Cloudy; EDUABILI Negative (Negative); EDUABLOOD 2+ (Negative); EDUACOLOR1 Yellow; EDUAGLUCOSE Negative (Negative); EDUAKETONE Negative (Negative); EDUALEUKO 3+ (Negative); EDUANITRATE Negative (Negative); EDUAPH 6.0; EDUAPROTEIN Trace (Negative); EDUASPGRAVITY 1.020; EDUAUROBILI 0.2
== END 2024-11-07 11:43 | disposition home or self-care (01) ==
PROVIDERS: Emergency Provider Nurse Practitioner Family; PCP Emergency Medicine
DX: N30.90 Cystitis, unspecified without hematuria (principal); Z87.891 Personal history of nicotine dependence; E78.5 Hyperlipidemia, unspecified; E55.9 Vitamin D deficiency, unspecified; I73.9 Peripheral vascular disease, unspecified; M15.0 Primary generalized (osteo)arthritis
CPT/HCPCS: 81003; 99213; G0463

== ENCOUNTER 2024-11-14 10:38 | Emergency (ER) | payer MEDICARE, SELFPAY ==
--- OUTSIDE RECORDS SUMMARY | 2024-11-14 10:41 | XMS_ITS | Clinical Summary ---
Author Organization [facility] Address [address] [facility] [place] [address] Care Team Providers Care Philatelic Consultant Name Role Phone Aaron Hudson MD Primary Care Provider [phone] Allergies No known active allergies Medications gabapentin [...] Description 01/12/2025 10:15 AM CDT Office Visit [facility] Oncology and Hematology - [place] [address] [facility] [address] [place] [address] Phong Lomax MD [address] [facility] [address] [place] [address] Health Maintenance Due Date Last Done Comments DTAP/TDAP/TD VACCINES (1 - Tdap) 1965 Lung Cancer Screening 1996 PNEUMOCOCCAL VACCINE 50+ YEARS (1 of 1 - PCV) 05/09/18 97 ZOSTER VACCINE (1 of 2) 1996 OSTEOPOROSIS SCREENING 2011 RSV VACCINE (60+ or ) (1 - 1-dose 75+ series) 2021 INFLUENZA VACCINE (#1) 2024 Insurance [employer] PPO MCR Care Teams Philatelic Consultant Relationship Specialty Start Date End Date Aaron Hudson MD [address] [place] [address] PCP - General Internal Medicine 12/04/20
--- OUTSIDE RECORDS SUMMARY | 2024-11-14 10:41 | XMS_ITS | Clinical Summary ---
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
--- OUTSIDE RECORDS SUMMARY | 2024-11-14 10:41 | XMS_ITS | Clinical Summary ---
Author Organization [facility] Address [facility] [place] [address] Care Team Providers Care Partition Notcher Name Role Phone Unavailable Primary Care Provider [...]
--- OUTSIDE RECORDS SUMMARY | 2024-11-14 10:41 | XMS_ITS | Continuity of Care Document ---
Author Organization [facility] Address [address] [facility] [address] [place] [address] Phone Care Team Providers Care Traffic Incident Management Manager Name Role Phone Landry Hwang MD [...] Encounter [facility], [address] [place] [address] [address], [place], [place], [address], [place] tel:[phone] SEC Be [place] Professional 1 mo CE PO (chief complaint) Surgery follow-up examination Jaiden Alatorre. [address], [facility] [place], [address], [place]. tel:[phone] Referring Provider: Miles Vasquez OD, [address] [place] [address], [address]. tel:[phone] [facility], [address], [place], [place], [address], tel:[phone] SEC Be [place] Professional Post-Op (chief complaint) Surgery follow-up examination 7 Shaggy Perea. [address], [address], [place], [place], [address], [place]. tel:[phone] Referring Provider: Miles Vasquez OD, [address] [place] [address], [address]. tel:[phone] [facility], [address], [place], [place], [address], [place] tel:[phone] SEC Be [place] Professional 1 DAY PO IOL OS (chief complaint) No Information 7 Jaiden Alatorre. [address], [address], [place], [place], [address], [place]. tel:[phone] Referring Provider: Miles Vasquez OD, [address] [place] [address], [address]. tel:[phone] [facility] Eye [facility], [address], [place], [place], [address], [place] [phone] [facility] No Information Sep-2 7 Jaiden Alatorre. [address] [facility] [place], [address], [place]. tel:[phone] Referring Provider: Miles Vasquez OD, [address] [place] [address], [address]. tel:[phone] [facility], [address] [place] [address] [address], [place], [place], [address], [place] tel:[phone] SEC Morley Magalys Dao No Information 7 Jaiden Alatorre. [address] [facility], [facility] [place], [address], [place]. tel:[phone] [facility], [address] [place] [address] [address], [place], [place], [address], [place] tel:[phone] SEC Be [place] Professional Post-Op (chief complaint) No Information Sep-0 7 Gallagherleonie Lozada. [address] [place], [address], [place]. tel:[phone] Referring Provider: Miles Vasquez OD, [address] [place] [address], [address]. tel:[phone] [facility], [address] [place] [address] [address], [place], [place], [address], [place] tel:[phone] SEC Be [place] Professional 1 week PO PCIOL (chief complaint) No Information 0 7 Shaggy Perea. [address] [facility], [facility] [place], [address], . tel:[phone] Referring Provider: Miles Vasquez OD, [address] [place] [address], [address]. tel:[phone] [facility], [address] [place] [address] [address], [place], [place], [address], tel:[phone] SEC [place] Professional 1 day CE PO (chief complaint) No Information 7 Jaiden Alatorre. [address], [address] [place], [address], [place]. tel:[phone] Referring Provider: Miles Vasquez OD, [address] [place] [address], [address]. tel:[phone] [facility], [address] [place] [address] [address], [place], [address], [place] tel:[phone] [place] [address] No Information 7 Jaiden Alatorre. [address], [place], [address], [place]. tel:[phone] Referring Provider: Miles Vasquez OD, [address] [place] [address], [address]. tel:[phone] Office/outpat ient Visit, [facility], [address] [place] [address] [address], [place], [place], [address], tel:[phone] SEC Be [place] Professional Cataract evaluation (chief complaint) No Information 7 Jaiden Alatorre. [address], [address], [place], [place], [address], [place]. tel:[phone] Referring Provider: Miles Vasquez OD, [address] [place] [address], [address]. tel:[phone] [facility]pat ient [facility], [facility], [address] [place] [address] [address], [place], [place], [address], tel:[phone] SEC [place] Professional Cataract evaluation (chief complaint) No Information 7 Jaiden Alatorre. [address] [facility], [place], [place], [address], [place]. tel:[phone] Referring Provider: Miles Vasquez OD, [address] [facility], [place], [address]. tel:[phone] [facility], [address], [place], [place], [address], [place] tel:[phone] SEC Be [place] Professional No Information 7 Aileen Lozada. [address] [facility], [place], [address], [place]. tel:[phone] Family History Family Member Type Diagnosis Age At Onset Mother Problem (finding) diabetes mellitus type 2 Mother Problem (finding) Retinal disease Payers Payer name Insurance type Covered constitution party ID Authoriza tion(s) No Information Social [...] and left eye. Pt states he at [facility] thinks she may have cataracts. Pt states [...]
--- OUTSIDE RECORDS SUMMARY | 2024-11-14 10:41 | XMS_ITS | Referral Summary ---
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
--- OUTSIDE RECORDS SUMMARY | 2024-11-14 10:42 | XMS_ITS | Continuity of Care Document ---
Author Organization [facility] Address [address] [facility] [address] [place] [address] Phone Care Team Providers Care Visualizer Name Role Phone Landry Hwang MD Unavailable [...] Diagnoses Date Provider Providers Copied on Encounter [facility], [address] [place] [address] [address], [place], [place], [address], [place] tel:[phone] SEC Be [place] Professional 1 mo CE PO (chief complaint) Surgery follow-up examination Jaiden Alatorre. [address], [facility] [place], [address], [place]. tel:[phone] Referring Provider: Miles Vasquez OD, [address] [place] [address], [address]. tel:[phone] [facility], [address], [place], [place], [address], tel:[phone] SEC Be [place] Professional Post-Op (chief complaint) Surgery follow-up examination 7 Shaggy Perea. [address], [place], [place], [address], [place]. tel:[phone] Referring Provider: Miles Vasquez OD, [address] [place] [address], [address]. tel:[phone] [facility], [address], [place], [place], [address], [place] tel:[phone] SEC Be [place] Professional 1 DAY PO IOL OS (chief complaint) No Information 7 Jaiden Alatorre. [address], [place], [place], [address], [place]. tel:[phone] Referring Provider: Miles Vasquez OD, [address] [place] [address], [address]. tel:[phone] [facility], [address], [place], [place], [address], [place] [phone] [facility] No Information Sep-2 7 Jaiden Alatorre. [address] [facility] [place], [address], [place]. tel:[phone] Referring Provider: Miles Vasquez OD, [address] [place] [address], [address]. tel:[phone] [facility], [address] [place] [address] [address], [place], [place], [address], [place] tel:[phone] SEC [place] Magalys Dao No Information 7 Jaiden Alatorre. [address] [facility], [facility] [place], [address], [place]. tel:[phone] [facility], [address] [place] [address] [address], [place], [place], [address], [place] tel:[phone] SEC Be LAR[place] Professional Post-Op (chief complaint) No Information Sep-0 7 Gallagherleonie Lozada. [address] [place], [address], [place]. tel:[phone] Referring Provider: Miles Vasquez OD, [address] [place] [address], [address]. tel:[phone] [facility], [address] [place] [address] [address], [place], [place], [address], [place] tel:[phone] SEC Be L[place] Professional 1 week PO PCIOL (chief complaint) No Information 0 7 Shaggy Perea. [address] [facility], [facility] [place], [address], . tel:[phone] Referring Provider: Miles Vasquez OD, [address] [place] [address], [address]. tel:[phone] [facility], [address] [place] [address] [address], [place], [place], [address], tel:[phone] SEC [place] Professional 1 day CE PO (chief complaint) No Information 7 Jaiden Alatorre. [address], [address] [place], [address], [place]. tel:[phone] Referring Provider: Miles Vasquez OD, [address] [place] [address], [address]. tel:[phone] [facility], [address] [place] [address] [address], [place], [address], [place] tel:[phone] [place] [address] No Information 7 Jaiden Alatorre. [address], [address] [place], [address], [place]. tel:[phone] Referring Provider: Miles Vasquez OD, [address] [place] [address], [address]. tel:[phone] Office/outpat ient Visit, [facility], [address] [place] [address] [address], [place], [place], [address], tel:[phone] SEC Be [place] Professional Cataract evaluation (chief complaint) No Information 7 Jaiden Alatorre. [address], [place], [place], [address], [place]. tel:[phone] Referring Provider: Miles Vasquez OD, [address] [place] [address], [address]. tel:[phone] Office/outpat ient Visit, [facility], [address] [place] [address] [address], [place], [place], [address], tel:[phone] SEC [place] Professional Cataract evaluation (chief complaint) No Information 7 Jaiden Alatorre. [address] [facility], [address], [place], [place], [address], [place]. tel:[phone] Referring Provider: Miles Vasquez OD, [address] [facility], [place], [address]. tel:[phone] [facility], [address], [place], [place], [address], [place] tel:[phone] SEC Be LAR[place] Professional No Information 7 Aileen Lozada. [address] [facility], [place], [address], [place]. tel:[phone] Family History Family Member Type Diagnosis Age [...] and left eye. Pt states he at [employer] thinks she may have cataracts. Pt states [...]
[2024-11-14 10:52] VITALS: BP 133/66; PULSE 90; RESP 16; TEMP 36.4; O2SAT 99
[2024-11-14 11:06] LABS: EDUAAPPEAR Cloudy; EDUABILI Negative (Negative); EDUABLOOD 2+ (Negative); EDUACOLOR1 Yellow; EDUAGLUCOSE Negative (Negative); EDUAKETONE Negative (Negative); EDUALEUKO 2+ (Negative); EDUANITRATE Negative (Negative); EDUAPH 7.0; EDUAPROTEIN 1+ (Negative); EDUASPGRAVITY 1.020; EDUAUROBILI 0.2
--- NOTE | 2024-11-14 11:11 | ED_ITS ---
HPI - General Adult General Chief complaint: Urogenital-Female Stated complaint: Urinary Problem Source: patient Mode of arrival: ambulatory Limitations: no limitations History of Present Illness HPI narrative: Patient presents for evaluation of urinary symptoms. She was seen here on 11/07/2024 for urinary symptoms. She was diagnosed with UTI. Urine culture grew out Klebsiella. She was treated with Macrobid. Culture showed susceptibility to Macrobid. She completed antibiotics last week. Yesterday she had recurrence of her symptoms. She reports a ?pulling? and pressure in her vaginal area. She denies any urinary incontinence, hesitancy, hematuria. She has urinary frequency which she attributes to increased water use. No fever, chills, nausea, vomiting, abdominal pain, low back pain. Related Data Home Medications ?Medication ?Instructions ?Recorded ?Confirmed ?Last Taken ?Type cholecalciferol (vitamin D3) 25 25 mcg PO DAILY 04/08/19 06/15/24 11/04/20 History mcg (1,000 unit) capsule omega 6-bez-lnf-fish oil 1,000 mg 2 cap PO DAILY 04/08/19 06/15/24 11/04/20 History (120 mg-180 mg) capsule cyanocobalamin (vitamin B-12) 500 500 mcg PO DAILY 02/11/24 06/15/24 Unknown History mcg tablet,extended release magnesium oxide 500 mg capsule 500 mg PO DAILY 02/11/24 06/15/24 Unknown History pyridoxine (vitamin B6) 100 mg 100 mg PO DAILY 02/11/24 06/15/24 Unknown History tablet Allergies Allergy/AdvReac Type Severity Reaction Status Date / Time No Known Allergies Allergy Verified 11/14/24 10:49 Review of Systems Review of Systems: CONSTITUTIONAL: Denies fever, chills, or sweats. EYES: Denies visual changes, redness, or discharge. ENT: Denies rhinorrhea, congestion, sore throat, or otalgia. CARDIOVASCULAR: Denies chest pain, palpitations, or edema. RESPIRATORY: Denies cough or dyspnea. GASTROINTESTINAL: Denies abdominal pain, nausea, vomiting, or diarrhea. GENITOURINARY:Reports pressure and pulling in the vaginal area. Reports urinary frequency. SKIN: Denies rash or itching. MUSCULOSKELETAL: Denies back pain, joint pain, or myalgia. NEUROLOGIC: Denies headache, numbness, dizziness, or weakness. PSYCHIATRIC: Denies anxiety or depression. [facility] Past Medical History Medical History Chronic diarrhea Hyperlipidemia Post-menopause Vitamin D deficiency Encounter for surgical aftercare following surgery on the digestive system Postoperative nausea (~10/2020) Back pain at L4-L5 level Multinodular goiter Nicotine dependence, unspecified, uncomplicated Numbness and tingling of both legs Other specified soft tissue disorders PVD (peripheral vascular disease) Paresthesia of skin Personal history of nicotine dependence Primary generalized (osteo)arthritis Shoulder joint painful on movement Vitamin D deficiency disease Surgical History Surgical History H/O hemicolectomy hand assisted laparoscopic right hemicolectomy c mobilization of hepatic flexure, lysis of adhesion of approximately 30 minutes History of hysterectomy H/O cataract extraction H/O section x 3 Family History Family History Father Family history of kidney disease Acute myocardial infarction Mother Family history of diabetes mellitus in first degree relative Sibling Acute myocardial infarction Social History Social History Smoking packs per day: 1 Smoking cigarettes per day: 20.0 Years smoked: 50 Smoking pack-years: 50.00 Smoking status: Former smoker Tobacco type: cigarettes Second hand tobacco smoke exposure: Yes Smoking end date: 08/11/18 Alcohol intake: former 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 HEAD: Normocephalic, atraumatic. EYES: PERRLA and EOMI. ENT: Nares clear, no rhinorrhea or epistaxis. Mucous membranes moist. Orop harynx without tonsillar hypertrophy exudate or other lesions. Bilateral TMs pearly molina nonbulging NECK: Supple. No adenopathy or masses. No carotid bruits or JVD CHEST: Clear to auscultation. No respiratory distress. No wheezes rales or rhonchi HEART: Regular rate and rhythm. No murmur heard. Normal peripheral pulses. ABDOMEN: Soft, nontender, nondistended, normal active bowel sounds. EXTREMITIES: Normal range of motion. No edema. SKIN: Warm, dry, no rash. NEURO: No focal deficits. Alert and oriented x3. PSYCH: Normal mood and affect. Course Course Emergency Course: This is a 79-year-old female who presented for evaluation of urinary symptoms. She has evidence of UTI on urinalysis today. Will send urine culture. Reviewed urine culture form 11/07/24 visit. All medications showed susceptibility with the exception of ampicillin. Will discharge with Augmentin. Increase fluids. Follow-up with primary provider. Go to the ER for worsening symptoms. Patient in agreement with plan of care. Level of Care: Express Care Visit Vital Signs Vital signs: Vital Signs Temperature 36.4 C 11/14/24 10:52 Pulse Rate 90 11/14/24 10:52 Respiratory Rate 16 11/14/24 10:52 Blood Pressure 133/66 11/14/24 10:52 Pulse Oximetry 99 11/14/24 10:52 Oxygen Delivery Room Air 11/14/24 10:52 Temperature 36.4 C 11/14/24 10:52 Pulse Rate 90 11/14/24 10:52 Respiratory Rate 16 11/14/24 10:52 Blood Pressure 133/66 11/14/24 10:52 Pulse Oximetry 99 11/14/24 10:52 Oxygen Delivery Room Air 11/14/24 10:52 Medical Decision Making Vital Signs Vital Signs: Vital Signs Temperature 36.4 C 11/14/24 10:52 Pulse Rate 90 11/14/24 10:52 Respiratory Rate 16 11/14/24 10:52 Blood Pressure 133/66 11/14/24 10:52 Pulse Oximetry 99 11/14/24 10:52 Oxygen Delivery Room Air 11/14/24 10:52 Temperature 36.4 C 11/14/24 10:52 Pulse Rate 90 11/14/24 10:52 Respiratory Rate 16 11/14/24 10:52 Blood Pressure 133/66 11/14/24 10:52 Pulse Oximetry 99 11/14/24 10:52 Oxygen Delivery Room Air 11/14/24 10:52 Lab Data Labs: Lab Results 11/14/24 Range/Units 11:04 POC Urine Color Yellow POC Urine Clarity Cloudy POC Urine pH 7.0 POC Ur Specif [place] 1.020 POC Urine Protein 1+ (Negative) POC Ur Glucose (UA) Negative (Negative) POC Urine Ketones Negative (Negative) POC Urine Blood 2+ (Negative) POC Urine Nitrite Negative (Negative) POC Urine Bilirubin Negative (Negative) POC Urine Urobilinogen 0.2 POC U Leukocyte Esteras 2+ (Negative) Discharge Plan Discharge Clinical Impression: Acute UTI Patient Disposition: Home Condition: Stable Instructions: Antibiotic Form, Urinary Tract Infection in Women (DC) Patient Language: Croatian Prescriptions: New amoxicillin-pot clavulanate 875-125 mg tablet 1 tablet PO Q12H Qty: 14 0RF No Action pyridoxine (vitamin B6) 100 mg tablet 100 mg PO DAILY cyanocobalamin (vitamin B-12) 500 mcg tablet extended release 500 mcg PO DAILY magnesium oxide 500 mg capsule 500 mg PO DAILY omega 0-wok-zxr-fish oil 1,000 mg (120 mg-180 mg) capsule 2 cap PO DAILY cholecalciferol (vitamin D3) 25 mcg (1,000 unit) capsule 25 mcg PO DAILY gabapentin 100 mg capsule See Rx Instructions .ROUTE .COMPLEX Qty: 270 2RF Dose Instruction: TAKE 1 CAPSULE BY MOUTH THREE TIMES DAILY Rx Instructions: TAKE 1 CAPSULE BY MOUTH THREE TIMES DAILY simvastatin 5 mg tablet See Rx Instructions .ROUTE .COMPLEX Qty: 90 2RF Dose Instruction: TAKE 1 TABLET BY MOUTH EVERY DAY IN THE EVENING Rx Instructions: TAKE 1 TABLET BY MOUTH EVERY DAY IN THE EVENING Follow-up/Referrals: Aaron Hudson MD [Primary Care Provider] - Time of Disposition: 11:09
== END 2024-11-14 11:17 | disposition home or self-care (01) ==
PROVIDERS: Emergency Provider Nurse Practitioner; PCP Emergency Medicine
DX: N39.0 Urinary tract infection, site not specified (principal); Z87.891 Personal history of nicotine dependence; E78.5 Hyperlipidemia, unspecified; E55.9 Vitamin D deficiency, unspecified; I73.9 Peripheral vascular disease, unspecified; M15.0 Primary generalized (osteo)arthritis
CPT/HCPCS: 81003; 87086; 99213; G0463

== ENCOUNTER 2024-12-01 02:34 | Day surgery (SDC) | payer MEDICARE, SELFPAY ==
--- OUTSIDE RECORDS SUMMARY | 2016-11-08 03:45 | XMS_ITS | Continuity of Care Document ---
Author Organization [facility] [place] [address] [place] [address] Phone Care Team Providers Care Escrow Representative Name Role Phone Landry Hwang MD Unavailable [...] Diagnoses Date Provider Providers Copied on Encounter [facility], [address] [place] [address] [address], [place], [place], [address], [place] tel:[phone] SEC Be [place] Professional 1 mo CE PO (chief complaint) Surgery follow-up examination Jaiden Alatorre. [address], [facility] [place], [address], [place]. tel:[phone] Referring Provider: Miles Vasquez OD, [address] [place] [address], [address]. tel:[phone] [facility], [address], [place], [place], [address], tel:[phone] SEC [place] Professional Post-Op (chief complaint) Surgery follow-up examination 7 Shaggy Perea. [address], [address], [place], [place], [address], [place]. tel:[phone] Referring Provider: Miles Vasquez OD, [address] [place] [address], [address]. tel:[phone] [facility], [address], [place], [place], [address], [place] tel:[phone] SEC Be [place] Professional 1 DAY PO IOL OS (chief complaint) No Information 7 Jaiden Alatorre. [address], [address], [place], [place], [address], [place]. tel:[phone] Referring Provider: Miles Vasquez OD, [address] [place] [address], [address]. tel:[phone] [facility], [address], [place], [place], [address], [place] [phone] [facility] No Information Sep-2 7 Jaiden Alatorre. [address] [facility] [place], [address], [place]. tel:[phone] Referring Provider: Miles Vasquez OD, [address] [place] [address], [address]. tel:[phone] [facility], [address] [place] [address] [address], [place], [place], [address], [place] tel:[phone] SEC [place] Magalys Dao No Information 7 Jaiden Alatorre. [address] [facility], [facility] [place], [address], [place]. tel:[phone] [facility], [address] [place] [address] [address], [place], [place], [address], [place] tel:[phone] SEC Be [place] Professional Post-Op (chief complaint) No Information Sep-0 7 Gallagherleonie Lozada. [address] [place], [address], [place]. tel:[phone] Referring Provider: Miles Vasquez OD, [address] [place] [address], [address]. tel:[phone] [facility], [address] [place] [address] [address], [place], [place], [address], [place] tel:[phone] SEC Be [place] Professional 1 week PO PCIOL (chief complaint) No Information 0 7 Shaggy Perea. [address] [facility], [facility] [place], [address], . tel:[phone] Referring Provider: Miles Vasquez OD, [address] [place] [address], [address]. tel:[phone] [facility], [address] [place] [address] [address], [place], [place], [address], tel:[phone] SEC Be [place] Professional 1 day CE PO (chief complaint) No Information 7 Jaiden Alatorre. [address], [address] [place], [address], [place]. tel:[phone] Referring Provider: Miles Vasquez OD, [address] [place] [address], [address]. tel:[phone] [facility], [address] [place] [address] [address], [place], [address], [place] tel:[phone] [place] [address] No Information 7 Jaiden Alatorre. [address], [address] [place], [address], [place]. tel:[phone] Referring Provider: Miles Vasquez OD, [address] [place] [address], [address]. tel:[phone] Office/outpat ient Visit, [facility], [address] [place] [address] [address], [place], [place], [address], tel:[phone] SEC Be [place] Professional Cataract evaluation (chief complaint) No Information 7 Jaiden Alatorre. [address], [address], [place], [place], [address], [place]. tel:[phone] Referring Provider: Miles Vasquez OD, [address] [place] [address], [address]. tel:[phone] Office/outpat ient Visit, [facility], [address] [place] [address] [address], [place], [place], [address], tel:[phone] SEC Be [place] Professional Cataract evaluation (chief complaint) No Information 7 Jaiden Alatorre. [address] [facility], [address], [place], [place], [address], [place]. tel:[phone] Referring Provider: Miles Vasquez OD, [address] [facility], [place], [address]. tel:[phone] [facility], [address], [place], [place], [address], [place] tel:[phone] SEC Be LAR[place] Professional No Information 7 Aileen Lozada. [address] [facility], [place], [address], [place]. tel:[phone] Family History Family Member Type Diagnosis Age [...] and left eye. Pt states he at [employer] thinks she may have cataracts. Pt states [...] Information Instructions Date Instruction Additional Infor marilee Follow up - Return t o Miles Vasquez OD for regularly scheduled visits Impression/Plan - 1 month s/p Phaco IOL OS:- Patient has healed well.- All post operative medications are finished.- Recommend patient continue AFT as needed for dryness OU.- Vision is good and IOP is stable.- Patient is doing well with OTC reading glasses.- Patient will return to Miles Vasquez OD for regularly scheduled visits. Follow up - as scheduled Impression/Plan - Go od post op results after CE OS. Continue post op drops as instructed. Return to clinic as scheduled or sooner with any problems. Follow up - Return to clinic as scheduled Impression/Plan - On e Day PO s/p Phaco with IOL OS:- IOL in good position.- Patient healing well.- Medication instillation, shield use and restrictions reviewed with patient.- Return to clinic as scheduled or sooner with problems. Surgery follow-up ex amination - Educational material provided Related to Surgery follow-up examination Surgery follow-up ex amination - Educational material provided Related to Surgery follow-up examination Impression/Plan - Tw o week post-op s/p CE/PCIOL OD in good position; healing well; IOP well controlled. Activities restrictions reviewed. Medication instillation and post op instructions reviewed. Proceed with CE OD with Dr. Hwang on 10-09-16. Monitor. Related to Surgery follow-up examination Follow up - as scheduled Impression/Plan - Go od post op results after CE OD. Continue drops as instructed. Return to clinic as scheduled or sooner with any problems. Follow up - Return to clinic as scheduled Impression/Plan - On e Day Post Op s/p Phaco with IOL OD:- IOL in good position.- Patient healing well.- Medication instillation, shield use and restrictions reviewed with patient.- Return to clinic as scheduled or sooner with problems. Follow up - Schedule CE OD with the standard IOL set for distance, followed by OS CE with the standard IOL set for distance Impression/Plan - Ca taract OU:- Cataract OD>OS [...] OU*Miles Vasquez, OD referral Follow up - Return t o clinic in the middle of July for 90 day rule OU Impression/Plan - Oc ular dryness OD>OS:- The [...] testing and dilate OU at next visit. 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 Related to Combined forms of age-related cataract of right eye Assessments Type Assessment Date assessment Surgery follow-up examination Isabel Patient Care Teams Name Effective Dates (start - stop) Status Members No Information
[2024-11-19 11:43] VITALS: BMI 25.7
--- OUTSIDE RECORDS SUMMARY | 2024-12-01 02:36 | XMS_ITS | Clinical Summary ---
Author Organization [facility] Address [address] [facility] [place] [address] Care Team Providers Care Dental Treatment Coordinator Name Role Phone Aaron Hudson MD Primary Care Provider + [phone] Allergies No known active allergies Medications gabapentin [...] Encounters Date Type Department Care Team Description 11/30/2024 External Device Data [facility] Provider, Abstract 11/16/2024 External Device Data [facility] Provider, Abstract 10/27/2024 External Device Data [facility] Provider, [...] Description 01/12/2025 10:15 AM CDT Office Visit [facility] Oncology and Hematology - [place] [address] [place] [address] [facility] [address] [place] [address] Phong Lomax MD [address] [place] [address] Health Maintenance Due Date Last Done Comments DTAP/TDAP/TD VACCINES (1 - Tdap) 1965 Lung Cancer Screening 1996 PNEUMOCOCCAL VACCINE 50+ YEARS (1 of 1 - PCV) 05/09/18 97 ZOSTER VACCINE (1 of 2) 1996 OSTEOPOROSIS SCREENING 2011 RSV VACCINE (60+ or ) (1 - 1-dose 75+ series) 2021 INFLUENZA VACCINE (#1) 2024 Insurance [employer] PPO MCR Care Teams Dental Treatment Coordinator Relationship Specialty Start Date End Date Aaron Hudson MD [address] [place] [address] PCP - General Internal Medicine 12/04/20
--- OUTSIDE RECORDS SUMMARY | 2024-12-01 02:36 | XMS_ITS | Clinical Summary ---
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
--- OUTSIDE RECORDS SUMMARY | 2024-12-01 02:36 | XMS_ITS | Encounter Summary ---
Author Organization [facility] Address [address] [place] [address] Care Team Providers Care Site Acquisition Manager Name Role Phone Aaron Hudson MD Primary Care Provider + [phone] Encounter Details Date Type Department Care Team (Late st Contact Info) Description 11/30/2024 External Device Data [facility] Provider, Abstract NO ADDRESS ON FILE Social History Tobacco Use Types Packs/Day Years [...] [facility]ology - [place] [address] [place] [address] Phong Lomax MD [address] [facility] [address] [place] [address] documented as of this encounter Visit Diagnoses Not on filedocumented in this encounter Care Teams Site Acquisition Manager Relationship Specialty Start Date End Date Aaron Hudson MD [address] [place] [address] PCP - General Internal Medicine 12/04/20 documented as of this encounter
--- OUTSIDE RECORDS SUMMARY | 2024-12-01 02:36 | XMS_ITS | Clinical Summary ---
Author Organization [facility] Address [facility] [place] [address] Care Team Providers Care Fruit Packer Face And Fill Name Role Phone Unavailable Primary Care Provider [...]
[2024-12-01 10:33] VITALS: BP 137/77; PULSE 95; RESP 20; TEMP 36; O2SAT 100; BMI 25.2
[2024-12-01] MEDS: LACTATED RINGERS 1,000 ML 150 ML IV CONT (10:38)
--- NOTE | 2024-12-01 10:53 | WPDANESEPPF ---
Anes - Initial Pre Proc Eval Procedure: Operation Date: 12/01/24 11:00 Proposed Procedures p Screening Colonoscopy - Jose Phillips MD Date/Time: 12/01/24 10:53 Surgeon: Jose Phillips MD Pre Op Diagnosis: Malignant neoplasm of colon, unspecified Patient Data Age: 79 Gender: F Height: 1.57 m Weight: 62.7 kg Last Vital Signs Temp 36.0 C L 12/01/24 10:33 Pulse 95 12/01/24 10:33 Resp 20 12/01/24 10:33 BP 137/77 12/01/24 10:33 Pulse Ox 100 12/01/24 10:33 O2 Del Method Room Air 12/01/24 10:33 Allergies Allergy/AdvReac Type Severity Reaction Status Date / Time No Known Allergies Allergy Verified 12/01/24 10:30 Home Medications ?Medication ?Instructions ?Recorded ?Confirmed ?Type cholecalciferol (vitamin D3) 25 25 mcg PO DAILY 04/08/19 12/01/24 History mcg (1,000 unit) capsule omega 6-stk-dot-fish oil 1,000 mg 1 cap PO DAILY 04/08/19 12/01/24 History (120 mg-180 mg) capsule cyanocobalamin (vitamin B-12) 500 500 mcg PO DAILY 02/11/24 12/01/24 History mcg tablet,extended release magnesium oxide 500 mg capsule 500 mg PO DAILY 02/11/24 12/01/24 History pyridoxine (vitamin B6) 100 mg 100 mg PO DAILY 02/11/24 12/01/24 History tablet gabapentin 100 mg capsule See Rx Instructions .Route 05/31/24 12/01/24 Rx .COMPLEX #270 caps simvastatin 5 mg tablet See Rx Instructions .Route 07/09/24 12/01/24 Rx .COMPLEX #90 tabs nitrofurantoin 100 mg PO Q12H 10 days #20 caps 11/23/24 12/01/24 Rx monohydrate/macrocrystals 100 mg capsule (Macrobid) Patient hx anesthesia problems: none Family hx anesthesia problems: none Results Review: All pre-operative results and documents have been reviewed as part of the pre-operative evaluation. [facility] Past Medical History Medical History Chronic diarrhea Hyperlipidemia Post-menopause Vitamin D deficiency Encounter for surgical aftercare following surgery on the digestive system Postoperative nausea (~10/2020) Back pain at L4-L5 level Multinodular goiter Nicotine dependence, unspecified, uncomplicated Numbness and tingling of both legs Other specified soft tissue disorders PVD (peripheral vascular disease) Paresthesia of skin Personal history of nicotine dependence Primary generalized (osteo)arthritis Shoulder joint painful on movement Vitamin D deficiency disease Surgical History Surgical History H/O hemicolectomy hand assisted laparoscopic right hemicolectomy c mobilization of hepatic flexure, lysis of adhesion of approximately 30 minutes History of hysterectomy H/O cataract extraction H/O section x 3 Family History Family History Father Family history of kidney disease Acute myocardial infarction Mother Family history of diabetes mellitus in first degree relative Sibling Acute myocardial infarction Social History Social History Smoking packs per day: 1 Smoking cigarettes per day: 20.0 Years smoked: 50 Smoking pack-years: 50.00 Smoking status: Former smoker Tobacco type: cigarettes Second hand tobacco smoke exposure: Yes Smoking end date: 08/11/18 Alcohol intake: former 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 Substance use: never Substance use type: does not use Do You Feel Safe in your Home?: Yes Lack of Transportation: No Lack of Food: Never True Current Housing: Decline to Answer Concerned About Future Housing: Decline to Answer Difficulty Paying Gas/Electric Bills: Decline to Answer Difficulty Paying for Meds: Decline to Answer Currently Unemployed: Decline to Answer Education: Decline to Answer Difficulty w/ Childcare or Family Care: Decline to Answer Living arrangements: with family Additional living arrangements comments: with sp Occupation/Education: retired Spiritual care concerns: No Anes - Eval Final PreProcedure Day of Procedure 12/01/24 10:53 Patient weight: normal Heart: regular rate and rhythm Lungs: clear to auscultation Airway: Mallampati scale class II Neurological: alert and oriented Last oral intake: >/= 8 hours ASA classification: III Emergent: no Anesthetic plan: proceed Anesthesia type and monitoring: general GIVS and standard monitoring Results Review: All pre-operative results and documents have been reviewed as part of the pre-operative evaluation. Informed Consent: The patient's anesthetic plan and its attendant risks and benefits were discussed with the patient/family/POA. Questions were solicited and answers provided to the satisfaction of the patient/family/POA.
--- NOTE | 2024-12-01 11:19 | PM.HPGS ---
History of Present Illness History of Present Illness Consent: Risks, benefits, and alternatives have been discussed and questions answered. Patient agrees to proceed with procedure. Chief complaint: Malignant neoplasm of colon, unspecified Narrative: Nataliia Arteaga is a 79 year old female with history of colon cancer, last colonoscopy 3 years ago Review of Systems Review of Systems: All systems reviewed & are unremarkable except as noted in HPI and below PMFSH Past Medical History Medical History (Updated 12/01/24 @ 11:20 by Jose Phillips MD) History of colon cancer Chronic diarrhea Hyperlipidemia Post-menopause Vitamin D deficiency Encounter for surgical aftercare following surgery on the digestive system Postoperative nausea (~10/2020) Back pain at L4-L5 level Multinodular goiter Nicotine dependence, unspecified, uncomplicated Numbness and tingling of both legs Other specified soft tissue disorders PVD (peripheral vascular disease) Paresthesia of skin Personal history of nicotine dependence Primary generalized (osteo)arthritis Shoulder joint painful on movement Vitamin D deficiency disease Surgical History Surgical History H/O hemicolectomy hand assisted laparoscopic right hemicolectomy c mobilization of hepatic flexure, lysis of adhesion of approximately 30 minutes History of hysterectomy H/O cataract extraction H/O section x 3 Family History Family History Father Family history of kidney disease Acute myocardial infarction Mother Family history of diabetes mellitus in first degree relative Sibling Acute myocardial infarction Social History Social History Smoking packs per day: 1 Smoking cigarettes per day: 20.0 Years smoked: 50 Smoking pack-years: 50.00 Smoking status: Former smoker Tobacco type: cigarettes Second hand tobacco smoke exposure: Yes Smoking end date: 08/11/18 Alcohol intake: former 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 Substance use: never Substance use type: does not use Do You Feel Safe in your Home?: Yes Lack of Transportation: No Lack of Food: Never True Current Housing: Decline to Answer Concerned About Future Housing: Decline to Answer Difficulty Paying Gas/Electric Bills: Decline to Answer Difficulty Paying for Meds: Decline to Answer Currently Unemployed: Decline to Answer Education: Decline to Answer Difficulty w/ Childcare or Family Care: Decline to Answer Living arrangements: with family Additional living arrangements comments: with sp Occupation/Education: retired Spiritual care concerns: No Meds Home Medications and Allergies Home Medications ?Medication ?Instructions ?Recorded ?Confirmed ?Type cholecalciferol (vitamin D3) 25 25 mcg PO DAILY 04/08/19 12/01/24 History mcg (1,000 unit) capsule omega 8-anf-vbo-fish oil 1,000 mg 1 cap PO DAILY 04/08/19 12/01/24 History (120 mg-180 mg) capsule cyanocobalamin (vitamin B-12) 500 500 mcg PO DAILY 02/11/24 12/01/24 History mcg tablet,extended release magnesium oxide 500 mg capsule 500 mg PO DAILY 02/11/24 12/01/24 History pyridoxine (vitamin B6) 100 mg 100 mg PO DAILY 02/11/24 12/01/24 History tablet gabapentin 100 mg capsule See Rx Instructions .Route 05/31/24 12/01/24 Rx .COMPLEX #270 caps simvastatin 5 mg tablet See Rx Instructions .Route 07/09/24 12/01/24 Rx .COMPLEX #90 tabs nitrofurantoin 100 mg PO Q12H 10 days #20 caps 11/23/24 12/01/24 Rx monohydrate/macrocrystals 100 mg capsule (Macrobid) Allergies Allergy/AdvReac Type Severity Reaction Status Date / Time No Known Allergies Allergy Verified 12/01/24 10:30 Vital Signs Vital Signs - 24 hr 12/01/24 10:33 Temperature 96.8 F L Pulse Rate 95 Respiratory Rate 20 Blood Pressure 137/77 Pulse Oximetry 100 Oxygen Delivery Room Air Exam Const: General: comfortable and no acute distress HENMT: Face/Nose/Sinus: Normal nares present Eyes: General: appearance normal, both eyes and all related structures Neck: Neck: no JVD Resp: Auscultation: clear to auscultation bilaterally Cardio: Rate: regular rate Rhythm: regular rhythm GI: Inspection: non-distended GI Palp: Yes Soft to palpation Skin: General skin exam: normal color Neuro: Speech: normal speech Extrem: General: normal to inspection Psych: Mental Status: mental status grossly normal Assessment and Plan Assessment and plan (1) History of colon cancer: Code(s): Z85.038 - Personal history of other malignant neoplasm of large intestine Status: Acute Assessment and Plan: colonoscopy
[2024-12-01 11:31] VITALS: BP 98/58; PULSE 65; RESP 12; O2SAT 98
[2024-12-01 11:41] VITALS: BP 105/59; PULSE 65; RESP 12; O2SAT 100
[2024-12-01 11:51] VITALS: BP 125/74; PULSE 62; RESP 17; O2SAT 100
== END 2024-12-01 11:58 | disposition home or self-care (01) ==
PROVIDERS: PCP Emergency Medicine; Referring Provider Internal Medicine Hematology & Oncology; Visit Provider Internal Medicine Gastroenterology
PROC: 0DJD8ZZ Inspection of Lower Intestinal Tract, Via Natural or Artificial Opening Endoscopic (ICD-10-PCS; CPT 45378; principal; 2024-12-01 11:00)
DX: Z12.11 Encounter for screening for malignant neoplasm of colon (principal); K64.8 Other hemorrhoids; E78.5 Hyperlipidemia, unspecified; E55.9 Vitamin D deficiency, unspecified; M79.89 Other specified soft tissue disorders; I73.9 Peripheral vascular disease, unspecified; M15.0 Primary generalized (osteo)arthritis; K52.9 Noninfective gastroenteritis and colitis, unspecified; Z98.890 Other specified postprocedural states; Z98.0 Intestinal bypass and anastomosis status; Z90.49 Acquired absence of other specified parts of digestive tract; Z87.891 Personal history of nicotine dependence; Z85.038 Personal history of other malignant neoplasm of large intestine; Z82.49 Family history of ischemic heart disease and other diseases of the circulatory system
CPT/HCPCS: G0105; J2003; J2704; J7120

== ENCOUNTER 2024-12-28 07:53 | Outpatient (CLI) | payer MEDICARE, SELFPAY ==
--- OUTSIDE RECORDS SUMMARY | 2016-11-08 03:45 | XMS_ITS | Continuity of Care Document ---
Author Organization [facility] [place] [address] [place] [address] Phone Care Team Providers Care Surgical Lead Name Role Phone Landry Hwang MD Unavailable Unavailable Allergies, Adverse Reactions, Alerts Substance Reaction Status Criticality No Known Allergies Active No Inform ation Medications Medication Instructions Dosage Effective Dates (start - stop) Status Comments simvastatin 20 mg tablet take 1 tablet by oral route every day in the evening 20 MG - Active aspirin 81 mg tablet,delayed release take 1 tablet by oral route every day 81 MG - Active cyanocobalamin 2 mg-levomefolate jarod 1.13 mg-pyridoxine 25 mg tablet - Active diclofenac 0.1 % eye drops Instill 1 drop in the LEFT eye TID x 4 weeks - No Longer Active Polytrim 10,000 unit-1 mg/mL eye drops instill 1 drop in the LEFT eye QID for 1 week then, TID x 3 weeks, then stop. - No Longer Active prednisolone acetate 1 % eye drops,suspension instill 1 drop in the LEFT eye QID x 1 week, TIDx 1 week, BID x 1 week, then Qday x 1 week, then stop - No Longer Active Procedures Procedure Date No Charge Refraction Post-op Follow-up Visit Post-op Follow-up Visit Post-op Follow-up Visit Remove Cataract, Insert Lens No Charge Refraction Post-op Follow-up Visit Post-op Follow-up Visit Post-op Follow-up Visit Remove Cataract, Insert Lens No Charge Refraction Office/outpatient Visit, Est No Charge Refraction IOLMaster IOLMaster Office/outpatient Visit, New Advance Directives Directive Yes / No Effective Date File Name No Information Encounters Encounter Description Practice Location Reason(s) For Visit Diagnoses Date Provider Providers Copied on Encounter [facility], [address] [place] [address] [address], [place], [place], [id number], [place] tel:[phone] SEC Be [place] Professional 1 mo CE PO (chief complaint) Surgery follow-up examination Jaiden Alatorre. [address], [facility] [place], [address], [place]. tel:[phone] Referring Provider: Miles Vasquez OD, [address] [place] [address], [address]. tel:[phone] [facility], [address], [place], [place], [address], tel:[phone] SEC [place] Professional Post-Op (chief complaint) Surgery follow-up examination 7 Shaggy Perea. [address], [address], [place], [place], [address], [place]. tel:[phone] Referring Provider: Miles Vasquez OD, [address] [place] [address], [address]. tel:[phone] [facility], [address], [place], [place], [address], [place] tel:[phone] SEC [place] Professional 1 DAY PO IOL OS (chief complaint) No Information 7 Jaiden Alatorre. [address], [address], [place], [place], [address], [place]. tel:[phone] Referring Provider: Miles Vasquez OD, [address] [place] [address], [address]. tel:[phone] [facility], [address], [place], [place], [address], [place] [phone] [address] [facility] No Information Sep-2 7 Jaiden Alatorre. [address] [facility] [place], [address], [place]. tel:[phone] Referring Provider: Miles Vasquez OD, [address] [place] [address], [address]. tel:[phone] [facility], [address] [place] [address] [address], [place], [place], [address], [place] tel:[phone] SEC Townley Magalys Dao No Information 7 Jaiden Alatorre. [address] [facility], [facility] [place], [address], [place]. tel:[phone] [facility], [address] [place] [address] [address], [place], [place], [address], [place] tel:[phone] SEC Be [place] Professional Post-Op (chief complaint) No Information Sep-0 7 Gallagherleonie Lozada. [address] [place], [address], [place]. tel:[phone] Referring Provider: Miles Vasquez OD, [address] [place] [address], [address]. tel:[phone] [facility], [address] [place] [address] [address], [place], [place], [address], [place] tel:[phone] SEC Be [place] Professional 1 week PO PCIOL (chief complaint) No Information 0 7 Shaggy Perea. [address] [facility], [facility] [place], [address], . tel:[phone] Referring Provider: Miles Vasquez OD, [address] [place] [address], [address]. tel:[phone] [facility], [address] [place] [address] [address], [place], [place], [address], tel:[phone] SEC [place] Professional 1 day CE PO (chief complaint) No Information 7 Jaiden Alatorre. [address], [address] [place], [address], [place]. tel:[phone] Referring Provider: Miles Vasquez OD, [address] [place] [address], [address]. tel:[phone] [facility], [address] [place] [address] [address], [place], [address], [place] tel:[phone] [place] [address] No Information 7 Jaiden Alatorre. [address], [address] [place], [address], [place]. tel:[phone] Referring Provider: Miles Vasquez OD, [address] [place] [address], [address]. tel:[phone] Office/outpat ient Visit, [facility] [place], [address] [place] [address] [address], [place], [place], [address], tel:[phone] SEC Be [place] Professional Cataract evaluation (chief complaint) No Information 7 Jaiden Alatorre. [address], [address], [place], [place], [address], [place]. tel:[phone] Referring Provider: Miles Vasquez OD, [address] [place] [address], [address]. tel:[phone] Office/outpat ient Visit, [facility], [address] [place] [address] [address], [place], [place], [address], tel:[phone] SEC Be [place] Professional Cataract evaluation (chief complaint) No Information 7 Jaiden Alatorre. [address] [facility], [address], [place], [place], [address], [place]. tel:[phone] Referring Provider: Miles Vasquez OD, [address] [facility], [place], [address]. tel:[phone] [facility], [address], [place], [place], [address], [place] tel:[phone] SEC Be [place] Professional No Information 7 Aileen Lozada. [address] [facility], [place], [address], [place]. tel:[phone] Family History Family Member Type Diagnosis Age At Onset Mother Problem (finding) diabetes mellitus type 2 Mother Problem (finding) Retinal disease Payers Payer name Insurance type Covered alliance party ID Authoriza tion(s) No Information Social History Type Description Quantity Date Captured Comments Alcohol Use Details No Caffeine Use Details Tobacco Use Status Smoking Status Current every day smoker Non-Smoking Tobacco Use Details : No Details Available : No Details Available Sex Female Chief Complaint And Reason For Visit From encounter dated '11/08/2016 08:45'. 1 mo CE PO (chief complaint). Description: The 71 year old female presents for 1 mo CE PO in the left eye. Hx of PCIOL OU and DARLINE OU. Pt reports she has finished all her gtts, OS and isn't currently using any gtts, OU. Pt reports no pain, irritation or discomfort OU. Reason For Referral Reason For Referral No Information Plan Of Treatment Date Type Action Status Goal Tobacco cessation counseling completed Goal Tobacco cessation counseling completed Goal Tobacco cessation counseling completed Goal Tobacco cessation counseling completed History Of Present Illness Encounter Date Complaint History Of Prese nt Illness 1 mo CE PO The 71 year old female presents for 1 mo CE PO in the left eye. Hx of PCIOL OU and DARLINE OU. Pt reports she has finished all her gtts, OS and isn't currently using any gtts, OU. Pt reports no pain, irritation or discomfort OU. Post-Op The 71 year old female presents for a 1 week post op CE OS. Patient is using Pred, Poly and Diclofenac OS as directed. Patient ou is doing good. 1 DAY PO IOL OS The 71 year old female presents for 1 DAY PO IOL OS. Patient reports OS is comfortable and the vision is improving. Patient obtained a new set of drops and started them yesterday as directed. PO instructions reviewed and given to patient. Post-Op The 71 year old female presents for a 2 week post op CE OD. Patient is using Pred, Poly and Diclofenac as directed OD. Patient states OD is doing good. Patient wishes to proceed with CE OS because of blurry vision and notices a difference between eyes. 1 week PO PCIOL The 71 year old female presents for 1 week PO PCIOL in the right eye. Hx Cataract OS. Pt using Poly, Pred and diclo TID OD. Pt states OD seems to be doing ok. States no pain, irritation or discomfort OU. 1 day CE PO The 71 year old female presents for 1 day CE PO in the right eye. Pt using Pred, Diclo, and Polymyxin B as directed. PO instructions were given, explained and understood by pt. Pt reports OD seems great. Pt reports no pain, irritation, or discomort today OU. Cataract evaluation The 71 year old female presents for Cataract evaluation in the right eye and left eye. (90 day rule) Patient c/o glare from headlights and c/o the bright sun. Cataract evaluation The 71 year old female presents for Cataract evaluation in the right eye and left eye. Pt states he at [employer] thinks she may have cataracts. Pt states her vision is ok but she gets lots os glare from other cars and on bright ruchi days. Pt states she did fail the vision portion of her DL exam. Pt states she si not usign any eye drops. PT states she si not having any pain/dicomfort. Functional Status Date Functional Assessmen t No Information Instructions Date Instruction Additional Infor marilee Impression/Plan - 1 month s/p Phaco IOL OS:- Patient has healed well.- All post operative medications are finished.- Recommend patient continue AFT as needed for dryness OU.- Vision is good and IOP is stable.- Patient is doing well with OTC reading glasses.- Patient will return to Miles Vasquez OD for regularly scheduled visits. Follow up - Return t o Miles Vasquez OD for regularly scheduled visits Impression/Plan - Go od post op results after CE OS. Continue post op drops as instructed. Return to clinic as scheduled or sooner with any problems. Follow up - as scheduled Impression/Plan - On e Day PO s/p Phaco with IOL OS:- IOL in good position.- Patient healing well.- Medication instillation, shield use and restrictions reviewed with patient.- Return to clinic as scheduled or sooner with problems. Follow up - Return to clinic as scheduled Impression/Plan - Tw o week post-op s/p CE/PCIOL OD in good position; healing well; IOP well controlled. Activities restrictions reviewed. Medication instillation and post op instructions reviewed. Proceed with CE OD with Dr. Hwang on 10-09-16. Monitor. Related to Surgery follow-up examination Surgery follow-up ex amination - Educational material provided Related to Surgery follow-up examination Surgery follow-up ex amination - Educational material provided Related to Surgery follow-up examination Impression/Plan - Go od post op results after CE OD. Continue drops as instructed. Return to clinic as scheduled or sooner with any problems. Follow up - as scheduled Impression/Plan - On e Day Post Op s/p Phaco with IOL OD:- IOL in good position.- Patient healing well.- Medication instillation, shield use and restrictions reviewed with patient.- Return to clinic as scheduled or sooner with problems. Follow up - Return to clinic as scheduled Impression/Plan - Ca taract OU:- Cataract OD>OS accounts for patient's visual complaints.- Discussed all R/B/A pertaining to cataract surgery.- The procedure and recovery from cataract extraction were discussed.- Recommend phacoemulsification with intraocular lens implant.- Lifestyle lens options discussed.- The possibility that patient may still need to wear glasses to correct astigmatism and/or for reading vision following surgery reviewed and understood by patient.- Patient elects to proceed with CE OD with the standard IOL set for distance, followed by CE OS with the standard IOL set for distance.*Possible Shugarcaine OU*Miles Vasquez, OD referral Follow up - Schedule CE OD with the standard IOL set for distance, followed by OS CE with the standard IOL set for distance 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 Related to Combined forms of age-related cataract of right eye Impression/Plan - Oc ular dryness OD>OS:- The right eye is very dry compared to the left.- Recommend starting AFT TID OU. Cataract OU:- Cataract OD>OS accounts for patient's visual complaints.- Patient prefers to wait on CE due to her Bowling Schedule.- Recommend patient return in the middle of July for 90 day rule OU.*Please get new MRX, BAT testing and dilate OU at next visit. Follow up - Return t o clinic in the middle of July for 90 day rule OU Assessments Type Assessment Date assessment Surgery follow-up examination Isabel Patient Care Teams Name Effective Dates (start - stop) Status Members No Information
[2024-12-28 08:25] LABS: Hematocrit 41.9 % (37.0-47.0); Hemoglobin 13.6 g/dL (12.0-15.0); Immature Granulocyte Percent A 0.3 % (0-0.5); Lymphocytes Absolute Auto 1.14 K/mm3 (0.9-3.2); Mean Corpuscular HGB Conc 32.5 g/dl (32-36); Mean Corpuscular Hemoglobin 31.2 pg (26-34); Mean Corpuscular Volume 96.1 fl (80-100); Nucleated Red Blood Cells Absolute Auto 0.000 K/mm3 (0.0-0.012); Nucleated Red Blood Cells Perc 0.0 % (0.0-0.2); Platelet Count Result 184 k/mm3 (150-375); Red Blood Count 4.36 M/mm3 (4.2-5.4); White Blood Count 3.4 K/mm3 (4.5-10.0)
--- OUTSIDE RECORDS SUMMARY | 2024-12-28 08:32 | XMS_ITS | Clinical Summary ---
Author Organization [facility] Address [facility] [place] [address] Care Team Providers Care Flexographic Printing Press Operator Name Role Phone Unavailable Primary Care Provider [...] series) 2021 COVID-19 Vaccine (2023-2 5 season) 2024 Meningococcal B Vaccine Aged Out No l onger eligible based on patient's age to complete this topic Meningococcal Vaccine Aged Out No kyung marni eligible based on patient's age to complete this topic RSV Immunizations Under 20 Months Aged Out No longer eligible based on patient's age to complete this topic
--- OUTSIDE RECORDS SUMMARY | 2024-12-28 08:32 | XMS_ITS | Clinical Summary ---
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
--- OUTSIDE RECORDS SUMMARY | 2024-12-28 08:32 | XMS_ITS | Clinical Summary ---
Author Organization [facility] Address [address] [facility] [place] [address] Care Team Providers Care Senior Care Manager Name Role Phone Aaron Hudson MD Primary Care Provider + [phone] Allergies No known active allergies Medications gabapentin [...] Description 01/12/2025 10:15 AM CDT Office Visit [facility] Oncology and Hematology - [place] [address] [facility] [address] [place] [address] Phong Lomax MD [address] [facility] [address] [place] [address] Health Maintenance Due Date Last Done Comments DTAP/TDAP/TD VACCINES (1 - Tdap) 1965 Lung Cancer Screening 1996 PNEUMOCOCCAL VACCINE 50+ YEARS (1 of 1 - PCV) 05/09/18 97 ZOSTER VACCINE (1 of 2) 1996 OSTEOPOROSIS SCREENING 2011 RSV VACCINE (60+ or ) (1 - 1-dose 75+ series) 2021 INFLUENZA VACCINE (#1) 2024 Insurance [employer] PPO MCR Care Teams Senior Care Manager Relationship Specialty Start Date End Date Aaron Hudson MD [address] [place] [address] PCP - General Internal Medicine 12/04/20
[2024-12-28 08:42] LABS: Alanine Aminotransferase 18 U/L (6-35); Albumin Level 4.0 g/dL (3.5-5.1); Alkaline Phosphatase 97 U/L (38-126); Anion Gap 5 mmol/L (4-12); Aspartate Amino Transferase 38 U/L (14-36); Bilirubin,Total 0.7 mg/dL (0.2-1.3); Blood Urea Nitrogen 17 mg/dL (7-17); Calcium 9.2 mg/dL (8.4-10.2); Carbon Dioxide 28 mmol/L (22-30); Chloride 104 mmol/L (98-107); Estimated Glomerular Filt Rate > 60; Glucose 93 mg/dL (65-110); Potassium 5.0 mmol/L (3.4-5.0); Sodium 137 mmol/L (137-145); Total Protein 7.1 g/dL (6.3-8.2)
[2024-12-28 09:17] LABS: Carcinoembryonic Antigen 10.3 ng/mL (0.0-3.0)
== END 2024-12-28 07:54 | disposition home or self-care (01) ==
PROVIDERS: PCP Emergency Medicine; Visit Provider Internal Medicine Hematology & Oncology
DX: C18.9 Malignant neoplasm of colon, unspecified (principal)
CPT/HCPCS: 36415; 80053; 82378; 85025

== ENCOUNTER 2025-01-12 11:07 | Outpatient (CLI) | payer MEDICARE, SELFPAY ==
--- OUTSIDE RECORDS SUMMARY | 2016-11-08 03:45 | XMS_ITS | Continuity of Care Document ---
Author Organization [facility] Address [address] [facility] [address] [place] [address] Phone Care Team Providers Care Ext Js Developer Name Role Phone Landry Hwang MD Unavailable [...] Diagnoses Date Provider Providers Copied on Encounter [facility], [address] [place] [address] [address], [place], [place], [address], [place] tel:[phone] SEC Be [place] Professional 1 mo CE PO (chief complaint) Surgery follow-up examination Jaiden Alatorre. [address], [facility] [place], [address], [place]. tel:[phone] Referring Provider: Miles Vasquez OD, [address] [place] [address], [address]. tel:[phone] [facility], [address], [place], [place], [address], tel:[phone] SEC [place] Professional Post-Op (chief complaint) Surgery follow-up examination 7 Shaggy Perea. [address], [address], [place], [place], [address], [place]. tel:[phone] Referring Provider: Miles Vasquez OD, [address] [place] [address], [address]. tel:[phone] [facility], [address], [place], [place], [address], [place] tel:[phone] SEC Be [place] Professional 1 DAY PO IOL OS (chief complaint) No Information 7 Jaiden Alatorre. [address], [address], [place], [place], [address], [place]. tel:[phone] Referring Provider: Miles Vasquez OD, [address] [place] [address], [address]. tel:[phone] [facility], [address], [place], [place], [address], [place] [phone] [facility] No Information Sep-2 7 Jaiden Alatorre. [address] [facility] [place], [address], [place]. tel:[phone] Referring Provider: Miles Vasquez OD, [address] [place] [address], [address]. tel:[phone] [facility], [address] [place] [address] [address], [place], [place], [address], [place] tel:[phone] SEC Afton Magalys Dao No Information 7 Jaiden Alatorre. [address] [facility], [facility] [place], [address], [place]. tel:[phone] [facility], [address] [place] [address] [address], [place], [place], [address], [place] tel:[phone] SEC Be [place]AR[place] Professional Post-Op (chief complaint) No Information Sep-0 7 Gallagherleonie Lozada. [address] [place], [address], [place]. tel:[phone] Referring Provider: Mlies Vasquez OD, [address] [place] [address], [address]. tel:[phone] [facility], [address] [place] [address] [address], [place], [place], [address], [place] tel:[phone] SEC Be [place] Professional 1 week PO PCIOL (chief complaint) No Information 0 7 Shaggy Perea. [address] [facility], [facility] [place], [address], . tel:[phone] Referring Provider: Miles Vasquez OD, [address] [place] [address], [address]. tel:[phone] [facility], [address] [place] [address] [address], [place], [place], [address], tel:[phone] SEC Be [place] Professional 1 day CE PO (chief complaint) No Information 7 Jaiden Alatorre. [address], [address] [place], [address], [place]. tel:[phone] Referring Provider: Miles Vasquez OD, [address] [place] [address], [address]. tel:[phone] [facility], [address] [place] [address] [address], [address], [place] tel:[phone] [place] [address] No Information 7 Jaiden Alatorre. [address], [address] [place], [address], [place]. tel:[phone] Referring Provider: Miles Vasquez OD, [address] [place] [address], [address]. tel:[phone] Office/outpat ient Visit, [facility], [address] [place] [address] [address], [place], [place], [address], tel:[phone] SEC [place] Professional Cataract evaluation (chief complaint) No Information 7 Jaiden Alatorre. [address], [address], [place], [place], [address], [place]. tel:[phone] Referring Provider: Miles Vasquez OD, [address] [place] [address]. tel:[phone] Office/outpat ient Visit, [email or web address] [address] [place] [address] [address], [place], [place], [address], tel:[phone] SEC [place] Professional Cataract evaluation (chief complaint) No Information 7 Jaiden Alatorre. [address] [facility], [address], [place], [place], [address], [place]. tel:[phone] Referring Provider: Miles Vasquez OD, [address] [facility], [place], [address]. tel:[phone] [facility], [address], [place], [place], [address], [place] tel:[phone] SEC Be [place] Professional No Information 7 Aileen Lozada. [address] [facility], [place], [address], [place]. tel:[phone] Family History Family Member Type Diagnosis Age At Onset Mother Problem (finding) diabetes mellitus type 2 Mother Problem (finding) Retinal disease Payers Payer name Insurance type Covered green party ID Authoriza tion(s) No Information Social [...] and left eye. Pt states he at [employer] thinks she may have cataracts. Pt states [...]
--- NOTE | ~2025-01-12 | CT_ITS ---
Exam: CT chest, abdomen and pelvis with contrast Clinical History: [Colon cancer. ] Comparison: [ Chest abdomen and pelvis 07/06/2024; CT chest abdomen and pelvis 05/06/2023] Technique: Multiple axial CT images of the chest, abdomen and pelvis were obtained with IV contrast. Sagittal and coronal reformatted images were obtained. FINDINGS: Lungs and pleura: [ No pulmonary mass. No pneumothorax. No pleural effusion. Stable biapical scarring. Stable calcified granuloma in the right lung apex. Minimal atelectasis or scarring in the lung bases.] Mediastinum and pulmonary monse: [ No mass or adenopathy.] Axillary/intramammary and supraclavicular: [ No mass or adenopathy.] Heart and great vessels: [ Normal heart size.[ [ No pericardial effusion.] [ No aneurysm.] Thyroid gland: Enlarged and heterogeneous with several thyroid nodules similar to the study from 05/06/2023. A thyroid ultrasound is recommended. Liver: [Mild fatty liver.No mass.] [ No intrahepatic biliary duct dilatation.] Gallbladder: [ No wall thickening or stones.] Common bile duct: [ Normal caliber.] [ No stones.] Spleen: [ Within normal limits.] Pancreas: [ No mass. No pancreatic fluid collection.] Adrenals: [ No masses.] Kidneys: [ No masses. No hydronephrosis.][ ] Lymph nodes: [ No adenopathy in the abdomen or pelvis.] Stomach, small bowel and colon: [ No bowel wall thickening or obstruction.] Moderate amount of stool. Right hemicolectomy. Peritoneum cavity: [ No mesenteric fat stranding or fluid.] Bladder: [ Unremarkable.] Osseous structures: [ No acute fracture or destructive lesion.] [ Multilevel degenerative change in the visualized spine.] Abdominal aorta: [ No aneurysm.] Additional findings: [ None of significance.] IMPRESSION: 1. No CT evidence for an acute process in the chest, abdomen or pelvis. 2. Right hemicolectomy. No CT evidence for recurrent malignancy. 3. No CT evidence for metastatic disease. Reviewed, dictated and finalized at location Q.
--- OUTSIDE RECORDS SUMMARY | 2025-01-12 10:15 | XMS_ITS | Encounter Summary ---
Author Organization [facility] [id number] [facility] Address [address] [place] [address] Care Team Providers Care Cancer Genetics Assistant Name Role Phone Aaron Hudson MD Primary Care Provider + [phone] Reason for Referral * CT Scan (Urgent) - Closed Specialty Diagnoses / Procedures Referred By Odalis fuentes Referred To Contact Diagnoses Malignant neoplasm of colon, unspecified part of colon (CMS/HCC) Procedures CT CHEST ABDOMEN PELVIS W Phong Gay MD [address] [place] [address] Phone: tel: fax: [facility] [address] Referral ID Status Reason Start Date Expiration Date V isits Requested Visits Authorized [id number] Closed [facility] CTS 01/12/2025 02/12/2026 1 1 Reason for Visit * Reason Comments Cancer Follow Up Encounter Details Date Type Department Care Team (Late st Contact Info) Description 01/12/2025 10:15 AM CDT Office Visit [facility] Oncology and Hematology [facility] [address] [facility] [address] [place] [address] Phong Lomax MD [address] [place] [address] Malignant neoplasm of colon, unspecified part [...] Sign Reading Time Taken Comments Blood Pressure 139/75 01/12/2025 9:59 AM CDT Pulse 75 01/12/2025 9:59 AM CDT Temperature 36.1 C (97 F) 01/12/2025 9:59 AM CDT Respiratory Rate 15 01/12/2025 9:59 AM CDT Oxygen Saturation 97% 01/12/2025 9:59 AM CDT Inhaled Oxygen Concentration - - Weight 65 kg (143 lb 3.2 oz) 01/12/2025 9:59 AM CDT Height - - Body Mass Index 25.77 01/21/2022 10:09 AM CDT documented in this encounter Progress Notes * Phong Lomax MD - 01/12/2025 10:58 AM CDT HEMATOLOGY / ONCOLOGY PROGRESS NOTE Patient Identification: Name: Nataliia Arteaga Age: 79 y.o. 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 CURRENT TREATMENT surveillance TREATMENT HISTORY Surveillance colonoscopy done on December 01, 2024 showed ileocolonic anastomosis and internal hemorrhoids. SUBJECTIVE Patient came to the office for follow-up visit. She denies any bleeding including melena or hematochezia. Denies any chest pain and shortness of breath. Denies any new lumps bumps or lymphadenopathy.He has been dealing with intermittent UTI and had 3 episode of UTI since October 2024. She is not on any antibiotic at this time. No other new complaints. Review of system [...] 0.7 total bilirubin 0.8 C4.4 hemoglobin 13.7 [id number] Labs from April 24 showed WBC 4.7 hemoglobin 14.6 platelet 174,000 creatinine 0.9 Labs from July 25 showed WBC 4.4 hemoglobin 14 platelet 193,000 creatinine 0.7 total bilirubin 0.8CEA is pending. Labs from November 19 showed CEA 7.7 platelet 1 61,000 WBC 4.3 hemoglobin 13.7 calcium 9.5 total bilirubin 0.6 Labs from 7 show WBC 3.5 hemoglobin 13 platelet 1 57,000 creatinine 0.7 CEA 7.5 Labs from June 23 showed hemoglobin 13.3 platelet 187,000 creatinine 0.7 CEA 7.6 total bilirubin 0.7 Labs from December 31 showed WBC 3.7 hemoglobin 13.3 platelet 1 60,000 CEA 6.5 total bilirubin 0.9 Labs from June 30 showed CEA 5.5 WBC 4.0 hemoglobin 14 platelet 168,000 Labs from December 28 showed creatinine 0.7 bilirubin 0.7 CEA 10.3 hemoglobin 13.6 Assessment: Plan: Patient Active Problem List Diagnosis Date Noted Malignant neoplasm of transverse colon (CMS/HCC) 12/04/2020 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 Patient had surveillance colonoscopy done on November 20, 2021 showed internal hemorrhoids and ileocolonic anastomosis. Surveillance colonoscopy done on December 01, 2024 showed ileocolonic anastomosis and internal hemorrhoids. Labs showed elevated CEA level. Patient has no symptoms and signs of recurrent of colon cancer. Shehad frequent UTIs in the last 3 months. She is off antibiotics. I will order CT chest abdomen and pelvis now and discussed that in 1 week due to elevated CEA. Peripheral neuropathy. Stable on gabapentin, vitamin B12 and vitamin B6. Phone visit in [address] scan 01/12/2025 Phong Lomax MD documented in this encounter Plan of Treatment Upcoming Encounters Date Type Department Care Team (Late st Contact Info) Description 01/17/2025 4:30 PM CDT Telephone Check Up [facility] Oncology and Hematology - [place] [address] [facility] [address] [place] [address] Phong Lomax MD [address] [facility] [address] [place] [address] Scheduled Orders Name Type Priority Associated Diagnoses Orde r Schedule CT CHEST ABDOMEN PELVIS W CONT Imaging Stat Malignant neoplasm of colon, unspecified part of colon (CMS/HCC) Expected: 01/13/2025, Expires: 01/12/2026 documented as of this encounter Visit Diagnoses Diagnosis Malignant neoplasm of colon, unspecified part of colon (CMS/HCC)- Primary documented in this encounter Care Teams Cancer Genetics Assistant Relationship Specialty Start Date End Date Aaron Hudson MD [address] [place] [id number] PCP - General Internal Medicine 12/04/20 documented as of this encounter
--- OUTSIDE RECORDS SUMMARY | 2025-01-12 11:54 | XMS_ITS | Clinical Summary ---
Author Organization [facility] Jean-Paul rodriguez Joanna Address [address] [place] [address] Care Team Providers Care Shoe Sprayer Name Role Phone Aaron Hudson MD Primary Care Provider + [phone] Allergies No known active allergies Medications gabapentin [...] Diagnosed Date Malignant neoplasm of transverse colon 1 Encounters Date Type Department Care Team Description 01/12/2025 10:15 AM CDT Office Visit [facility] Oncology and Hematology - [place] [address] [place] [address] Phong Lomax MD Malignant neoplasm of colon, unspecified part of colon (CMS/HCC) (Primary Dx) 12/28/2024 External Device Data STL ABSTRACTION Provider, Abstract 12/28/2024 Orders Only [facility] Oncology and Hematology - [place] [address] [place] [address] Phong Lomax MD 11/30/2024 External Device Data STL ABSTRACTION Provider, [...] 3.2 oz) 01/12/2025 9:59 AM CDT Height 158.8 cm (5' 2.5) 01/21/2022 10:09 AM CD T Body Mass Index 25.77 01/21/2022 10:09 AM CDT Plan of Treatment Upcoming Encounters Date Type Department Care Team (Late st Contact Info) Description 01/17/2025 4:30 PM CDT Telephone Check Up [facility] Oncology and Hematology - [place] [address] [facility] [address] [place] [address] Phong Lomax MD [address] [facility] [address] [place] [address] Health Maintenance Due Date Last Done Comments DTAP/TDAP/TD VACCINES (1 - Tdap) 1965 Lung Cancer Screening 1996 PNEUMOCOCCAL VACCINE 50+ YEARS (1 of 1 - PCV) 05/09/18 97 ZOSTER VACCINE (1 of 2) 1996 OSTEOPOROSIS SCREENING 2011 RSV VACCINE (60+ or ) (1 - 1-dose 75+ series) 2021 [place] Prev entative Visit/Annual Wellness Visit 04/14/2024 06/05/2022 INFLUENZA VACCINE (#1) 2024 Procedures Procedure Name Priority Date/Time Associated Diagnosis Comments COMPREHENSIVE METABOLIC PANEL Routine 12/28/2024 3:02 PM CDT CBC WITH AUTODIFFERENTIAL Routine 2024 2:56 PM CDT from Last 3 Months Results * COMPREHENSIVE METABOLIC PANEL (12/28/2024 3:02 PM CDT) Blood Phong Lomax MD CHEMISTRY ORDERABLES Final Resu lt * CBC WITH AUTODIFFERENTIAL (12/28/2024 2:56 PM CDT) Blood us Phong Lomax MD HEMATOLOGY ORDERABLES Final Res ult from Last 3 Months Insurance [facility] [address] Care Teams Shoe Sprayer Relationship Specialty Start Date End Date Aaron Hudson MD [address] [place] [address] PCP - General Internal Medicine 12/04/20
--- OUTSIDE RECORDS SUMMARY | 2025-01-12 11:54 | XMS_ITS | Clinical Summary ---
Author Organization [facility] [address] Address [address] [place] [address] Care Team Providers Care Electrophysiologist Name Role Phone Aaron Hudson MD Primary Care Provide r Social History Tobacco Use Types Packs/Day Years Used Date Smoking Tobacco: Never Assessed Personal Safety Answer Date Recorded Getting School Help Needed Not on file 06/28 Comments Unknown Sex and Gender Information Value Date Recorded Sex Assigned at Not on file Legal Sex Female 4:05 AM [employer]LECT[employer] Gender Identity Not on file Sexual Orientation Not on file Plan of Treatment Not on file Insurance AET MEDICARE Member Subscriber Plan / Payer (Ef fective 2018-Present) Name:Nataliia Arteaga Member ID:[id number] Relation to Subscriber:Self Name:Nataliia Arteaga Subscriber ID:[id number] Payer ID:[id number] (NAIC) Type:AETNA MEDICARE Address: [facility] [id number] [place] [address] Care Teams Electrophysiologist Relationship Specialty Start Date End Date Aaron Hudson MD [address] [place] [address] PCP - General 09/06/15
== END 2025-01-12 11:08 | disposition home or self-care (01) ==
PROVIDERS: PCP Emergency Medicine; Visit Provider Internal Medicine Hematology & Oncology
DX: C18.9 Malignant neoplasm of colon, unspecified (principal)
CPT/HCPCS: 71260; 74177; Q9967

== ENCOUNTER 2025-03-24 07:56 | Outpatient (CLI) | payer MEDICARE, SELFPAY ==
[2025-03-24 08:32] LABS: Hematocrit 40.1 % (37.0-47.0); Hemoglobin 13.5 g/dL (12.0-15.0); Immature Granulocyte Percent A 0.3 % (0-0.5); Lymphocytes Absolute Auto 1.32 K/mm3 (0.9-3.2); Mean Corpuscular HGB Conc 33.7 g/dl (32-36); Mean Corpuscular Hemoglobin 32.1 pg (26-34); Mean Corpuscular Volume 95.2 fl (80-100); Nucleated Red Blood Cells Absolute Auto 0.000 K/mm3 (0.0-0.012); Nucleated Red Blood Cells Perc 0.0 % (0.0-0.2); Platelet Count Result 160 k/mm3 (150-375); Red Blood Count 4.21 M/mm3 (4.2-5.4); White Blood Count 3.8 K/mm3 (4.5-10.0)
[2025-03-24 08:57] LABS: Alanine Aminotransferase 20 U/L (6-35); Albumin Level 4.3 g/dL (3.5-5.1); Alkaline Phosphatase 95 U/L (38-126); Anion Gap 5 mmol/L (4-12); Aspartate Amino Transferase 35 U/L (14-36); Bilirubin,Total 1.0 mg/dL (0.2-1.3); Blood Urea Nitrogen 25 mg/dL (7-17); Calcium 9.4 mg/dL (8.4-10.2); Carbon Dioxide 27 mmol/L (22-30); Chloride 104 mmol/L (98-107); Cholesterol 197 mg/dL (0-200); Estimated Glomerular Filt Rate > 60; Glucose 97 mg/dL (65-110); HDL Direct 101 mg/dL; Potassium 4.8 mmol/L (3.4-5.0); Sodium 136 mmol/L (137-145); Total Protein 7.5 g/dL (6.3-8.2); Triglycerides 63 mg/dL (<150)
== END 2025-03-24 07:57 | disposition home or self-care (01) ==
PROVIDERS: PCP Emergency Medicine; Visit Provider Emergency Medicine
DX: E78.5 Hyperlipidemia, unspecified (principal); E55.9 Vitamin D deficiency, unspecified; I10 Essential (primary) hypertension
CPT/HCPCS: 36415; 80053; 80061; 82306; 85025